=== PATIENT | female | born 1980 | race Caucasian/White ===

== ENCOUNTER 2021-05-04 09:33 | Emergency (ER) | payer OTHER, SELFPAY ==
--- NOTE | ~2021-05-04 | XR_ITS ---
EXAMINATION: XR CHEST CLINICAL INFORMATION: Chest pain. COMPARISON: None TECHNIQUE: Frontal view of the chest was obtained. FINDINGS: 2 ill-defined rounded opacities are seen in the right mid and lower lobe. The lungs are otherwise clear. The pleural spaces are clear. The heart and mediastinal structures are normal. No bony abnormality is seen. XR/XR chest 1V IMPRESSION: Ill-defined patchy opacities right lung, nonspecific. Early pneumonia is possible. Short-term interval follow-up is suggested to show resolution.
--- NOTE | ~2021-05-04 | CT_ITS ---
EXAMINATION: CT ANGIOGRAM OF THE CHEST WITH AND WITHOUT CONTRAST (CT PULMONARY ANGIOGRAM FOR PE) CLINICAL INFORMATION: Reason for Exam CHEST PAIN. pe? ELEVATED d-DIMER. COMPARISON: None TECHNIQUE: Prior to contrast administration, noncontrast localization images were obtained. Subsequently, multidetector volumetric imaging was performed from the thoracic inlet to below the diaphragms following the administration of 65 mL Omnipaque 350 intravenous contrast. No contrast reaction reported Sagittal, coronal, and MIP oblique sagittal reformatted images were obtained on the CT workstation, uploaded to PACS, and reviewed. This CT examination was performed using dose optimization techniques as appropriate, variously including the following: *Automated exposure control *Adjustment of mA and/or kV according to patient size (this includes techniques or standardized protocols for targeted exams where dose is matched to indication/reason for exam; i.e. extremities or head) *Use of iterative reconstruction technique Total exam dose-length product 486 mGy-cm FINDINGS: QUALITY OF STUDY/CONTRAST BOLUS: Satisfactory. PULMONARY ARTERIES: No central or segmental pulmonary emboli. THORACIC AORTA: No aneurysm or dissection. LUNG: There are bilateral rounded parenchymal consolidations showing a slight peripheral predominance. Low lung volumes. Mosaic attenuation within the lower lungs bilaterally likely relates to accompanying air trapping. PLEURA: No pleural effusion or pneumothorax. MEDIASTINUM: Normal heart size. No pericardial effusion. No hilar or mediastinal lymphadenopathy. No evidence of septal bowing or right heart strain. CHEST WALL/AXILLA: No axillary or internal mammary lymphadenopathy. OSSEOUS STRUCTURES: No acute or suspicious osseous abnormality. UPPER ABDOMEN: Hepatic steatosis suspected. Cholelithiasis. CT/CT angio chest PE protocol IMPRESSION: * No pulmonary embolism. * Multifocal bilateral rounded parenchymal consolidations. This is nonspecific but can be seen in association with COVID pneumonitis. * Hepatic steatosis. * Cholelithiasis. VTE: negative
[2021-05-04 09:41] VITALS: BP 134/79; PULSE 88; RESP 24; TEMP 36.6; O2SAT 100; BMI 43.4
--- NOTE | 2021-05-04 10:21 | ECG_ITS ---
Test Reason : DIFFICULTY BREATHING Blood Pressure : / mmHG Vent. Rate : 076 BPM Atrial Rate : 076 BPM P-R Int : 182 ms QRS Dur : 080 ms QT Int : 398 ms P-R-T Axes : 033 016 009 degrees QTc Int : 447 ms Normal sinus rhythm Normal ECG No previous ECGs available Referred By: Rubén Naik Electronically Signed By:DAVID CARRIZALES MD
[2021-05-04] MEDS: guaiFEN/Codeine SF 200/20/10ML 10 ML LIQUID PO (10:46)
--- NOTE | 2021-05-04 10:49 | PC.NURSE ---
pt post breakthrough case of covid ((=) on 04/23/21, (-) 05/01/21, presents with SOB, inability to take a deep breath. Pt SaO2 100% on RA,lungs without adventitious breath sounds. Denies OCPs. Consult with CATHLEEN Trotter, orders completed. Awaiting results and disposition.
--- NOTE | 2021-05-04 10:57 | ED_ITS ---
HPI - General Adult General Chief complaint: Upper Respiratory Symptoms Stated complaint: +covid 10 days ago, diff breathing Time Seen by Provider: 05/04/21 10:20 Source: patient Mode of arrival: ambulatory Limitations: no limitations History of Present Illness HPI narrative: 40-YEAR-OLD FEMALE HISTORY OF DIABETES AND TESTED POSITIVE FOR COVID ON April PRESENTS TO THE ED FOR CHEST PAIN, COUGHING, chills, b odyaches AND MILD PLEURISY for 4 days.. PATIENT TESTED COVID NEGATIVE ON MAY 01 BUT SYMPTOMS WORSENED. PATIENT DENIES ANY SWELLING OF LOWER EXTREMITIES, CALF PAIN, or COUGHING UP BLOOD. PATIENT DENIES ANY RECENT LONG TRAVEL OR ORAL CONTRACEPTIVES. PATIENT STATES NO HISTORY OF DVT. Related Data Previous Rx's Medication Instructions Recorded amoxicillin 875 mg-potassium 1 tab PO BID 10 Days #20 tab 05/04/21 clavulanate 125 mg tablet (Augmentin) azithromycin 250 mg tablet 250 mg PO DAILY 6 Days #6 tab 05/04/21 dexamethasone 6 mg tablet 6 mg PO DAILY 10 Days #10 tab 05/04/21 (Decadron) Allergies Allergy/AdvReac Type Severity Reaction Status Date / Time some adhesives Allergy Unknown rash Uncoded 03/13/19 00:00 Review of Systems Review of Systems: Yes all other systems are reviewed and are negative Constitutional: Constitutional: Reports as per HPI and Reports no additional constitutional complaints Eyes: Eyes: Reports as per HPI and Reports no additional eye complaints ENT: Reports system reviewed and no additional complaints, except as documented and Reports as per HPI Cardiovascular: Cardiovascular: Reports as per HPI, Reports no additional cardiovascular complaints, Reports chest pain and Reports dyspnea Respiratory: Respiratory: Reports as per HPI, Reports no additional respiratory complaints, Reports chest congestion, Reports cough, Reports pain with cough and Reports dyspnea Gastrointestinal: Gastrointestinal: Reports as per HPI and Reports no additional gastrointestinal complaints Genitourinary: Genitourinary: Reports no additional female genitourinary complaints and Reports as per HPI Musculoskeletal: Musculoskeletal: Reports no additional musculoskeletal compl aints and Reports as per HPI Neurologic: Reports system reviewed and no additional complaints, except as documented and Reports as per HPI Psychiatric: Psychiatric: Reports no additional psychiatric complaints and Re ports as per HPI [facility] Past Medical History Medical History (Updated 05/04/21 @ 16:34 by CATHLEEN Trotter) Asthma Diabetes Social History Social History Advance Directives: No Physical Exam Vital Signs: Vital Signs: Last Vital Signs Temp 98.1 F 05/04/21 16:51 Pulse 81 05/04/21 16:51 Resp 18 05/04/21 16:51 BP 118/73 05/04/21 16:51 Pulse Ox 96 05/04/21 16:51 Body Mass Index 43.4 Const: General: cooperative, healthy appearing, comfortable, no acute distress, well developed, alert, awake and Physically active Orientation/consciousness: patient oriented x3 HENMT: Head: Yes normal to inspection, Yes No palpable skull fracture present, Yes normocephalic, Yes atraumatic and No abrasion Eyes: General: appearance normal, both eyes and all related structures Neck: Neck: Yes normal visual inspection, Yes full ROM, Yes no ly mphadenopathy, Yes no meningeal signs, Yes trachea midline, Yes supple and No tender Chest: Chest palpation & inspection: normal inspection of the chest and normal palpation of entire chest wall Resp: Effort & Inspection: normal respiratory effort and able to speak in complete sentences Auscultation: clear to auscultation bilaterally Cardio: Jugular venous distension: no JVD Heart sounds: S1 normal heart sound present and S2 normal heart sound present GI: Inspection: Yes normal to inspection and No abdominal wall ecchymosis Palpation (GI): Soft to palpation, not firm, nontender, no guarding and not rigid : General: No CVA tenderness and Yes no CVA tenderness Back/Spine/Pelvis: Back: no CVA tenderness, No CVA tenderness and No back tenderness Skin: General skin exam: no rashes or lesions noted and elasticity normal Neuro: General: patient oriented x3, gait normal, no meningeal signs and CN's II-XI intact bilaterally Cranial nerves: Yes CN's II-XII intact bilaterally Extrem: Other: LOWER EXTREMITIES NEGATIVE FOR SWELLING, PITTING EDEMA, CALF TENDERNESS. Psych: Appearance: grossly normal, well kempt and not disheveled Course Course Course Narrative: MOST LIKELY VIRAL INFECTION SYMPTOMS. PATIENT'S CHEST WALL PAIN COSTOCHONDRITIS. WE WILL SEND D-DIMER, CHEST X-RAY AND LABS. Reevaluation(s) Reevaluation #1: EKG negative STEMI. Troponin negative. X-ray shows COVID pneumonia. D-dimer elevated was sent for chest CT and rule out PE. Time: 11:02 Reevaluation #2: Chest CT negative for PE. Chest CTA shows COVID pneumonia. Patient is not hypoxic does not need admission. Will discharge with cough medication, antibiotics, and Decadron. Time: 15:12 Medical Decision Making MDM Narrative Medical decision making narrative: COVID pneumonia Lab Data Result diagrams: 05/04/21 11:02 05/04/21 11:02 Labs: Lab Results 05/04/21 05/04/21 05/04/21 Range/Units 11:02 11:02 11:02 WBC 4.8 (4.8-10.8) X10*3/uL RBC 3.94 L (4.20-5.50) X10*6/uL Hgb 11.2 L (12.0-16.0) g/dl Hct 33.2 L (37.0-47.0) % MCV 84.3 (80.0-98.0) fL MCH 28.4 (27.0-33.0) pg MCHC 33.7 (31.0-35.0) g/dl RDW 12.8 (11.0-16.0) % Plt Count 329 (160-400) X10*3/uL MPV 9.6 (9.4-12.3) fL Immature Gran % (Auto) 1.0 H (0.0-0.4) % Neut % (Auto) 54.8 (45-73) % Lymph % (Auto) 32.7 (20-40) % [place] % (Auto) 7.3 (2-11) % Eos % (Auto) 3.8 (0-4) % Baso % (Auto) 0.4 (0-2) % Lymph # (Auto) 1.6 (1.2-4.9) X10*3/uL [place] # (Auto) 0.4 (0.1-1.2) X10*3/uL Eos # (Auto) 0.2 (0.0-0.4) X10*3/uL Baso # (Auto) 0.0 (0.0-0.2) X10*3/uL Abs Immat Gran (auto) 0.05 H (0.00-0.03) X10*3/uL Absolute Neuts (auto) 2.6 (2.0-8.3) x10*3/uL Absolute Nucleated RBC 0.000 (0.0-0.012) X10*3/uL Nucleated RBC % (auto) 0.0 (0.0-0.2) /100WBC PT (9.9-13.0) SEC INR (0.9-1.1) APTT (24.1-38.0) SEC D-Dimer High Sensitivty 484 NG/ML Sodium 139 (135-145) mmol/L Potassium 3.7 (3.3-5.1) mmol/L Chloride 107 (96-108) mmol/L Carbon Dioxide 23 (22-29) mmol/L Anion Gap 13 (12-20) BUN 11 (9-16) mg/dL Creatinine 0.69 (0.5-1.4) mg/dL Estim Creat Clear Calc 122.8 Estimated GFR > 60 Random Glucose 122 H (60-115) mg/dL Calcium 8.6 (8.4-10.2) mg/dL Total Bilirubin 0.3 (0.0-1.0) mg/dL AST 24 (5-31) U/L ALT 44 H (0-31) U/L Alkaline Phosphatase 50 (39-117) U/L Troponin I High Sens (<3.5-17.0) ng/L B-Natriuretic Peptide Total Protein 7.2 (6.5-8.0) g/dL Albumin 3.7 (3.5-5.0) g/dL Beta HCG, Quant < 2 mIU/mL 05/04/21 05/04/21 Range/Units 11:02 11:02 WBC (4.8-10.8) X10*3/uL RBC (4.20-5.50) X10*6/uL Hgb (12.0-16.0) g/dl Hct (37.0-47.0) % MCV (80.0-98.0) fL MCH (27.0-33.0) pg MCHC (31.0-35.0) g/dl RDW (11.0-16.0) % Plt Count (160-400) X10*3/uL MPV (9.4-12.3) fL Immature Gran % (Auto) (0.0-0.4) % Neut % (Auto) (45-73) % Lymph % (Auto) (20-40) % [place] % (Auto) (2-11) % Eos % (Auto) (0-4) % Baso % (Auto) (0-2) % Lymph # (Auto) (1.2-4.9) X10*3/uL [place] # (Auto) (0.1-1.2) X10*3/uL Eos # (Auto) (0.0-0.4) X10*3/uL Baso # (Auto) (0.0-0.2) X10*3/uL Abs Immat Gran (auto) (0.00-0.03) X10*3/uL Absolute Neuts (auto) (2.0-8.3) x10*3/uL Absolute Nucleated RBC (0.0-0.012) X10*3/uL Nucleated RBC % (auto) (0.0-0.2) /100WBC PT 11.1 (9.9-13.0) SEC INR 1.0 (0.9-1.1) APTT 31.9 (24.1-38.0) SEC D-Dimer High Sensitivty NG/ML Sodium (135-145) mmol/L Potassium (3.3-5.1) mmol/L Chloride (96-108) mmol/L Carbon Dioxide (22-29) mmol/L Anion Gap (12-20) BUN (9-16) mg/dL Creatinine (0.5-1.4) mg/dL Estim Creat Clear Calc Estimated GFR Random Glucose (60-115) mg/dL Calcium (8.4-10.2) mg/dL Total Bilirubin (0.0-1.0) mg/dL AST (5-31) U/L ALT (0-31) U/L Alkaline Phosphatase (39-117) U/L Troponin I High Sens < 3.5 (<3.5-17.0) ng/L B-Natriuretic Peptide Cancelled Total Protein (6.5-8.0) g/dL Albumin (3.5-5.0) g/dL Beta HCG, Quant mIU/mL ECG Data Interpretation: Vent rate 76, MS ineterval 182, QRS 80, QTC 447. negative stemi Discharge Plan Discharge Clinical Impression: Pneumonia due to 2019 novel coronavirus Patient Disposition: Home, Self-Care Instructions: COVID-19 (Coronavirus Disease 2019) (ED) Additional Instructions: Your CT scan shows COVID pneumonia. You will be discharged with antibiotics and steroids. Return to the ED for shortness of breath, coughing up blood, swelling of lower extremity, calf pain, weakness, dizziness, worsening chest pain, or any other concerning symptoms. Please follow-up with primary care provider. Prescriptions: New amoxicillin-pot clavulanate [Augmentin] 875-125 mg tablet 1 tab PO BID 10 Days Qty: 20 RF: 0 azithromycin 250 mg tablet 250 mg PO DAILY 6 Days Qty: 6 RF: 0 dexamethasone [Decadron] 6 mg tablet 6 mg PO DAILY 10 Days Qty: 10 RF: 0 Stand Alone Forms: Work/School Release Interventions: ED Discharge Assessment Last Done: 05/04/21 16:53 Discharge Date/Time: 05/04/21 16:54 Print Language: Nepali
[2021-05-04 11:07] LABS: MANUAL DIFF FLAG NO
[2021-05-04 11:12] LABS: Basophils Percent Auto 0.4 % (0-2); Eosinophils Absolute Auto 0.2 X10*3/uL (0.0-0.4); Eosinophils Percent Auto 3.8 % (0-4); Hematocrit 33.2 % (37.0-47.0); Hemoglobin 11.2 g/dl (12.0-16.0); Imm Gran Abs Auto 0.05 X10*3/uL (0.00-0.03); Lymphocytes Absolute Auto 1.6 X10*3/uL (1.2-4.9); Lymphocytes Percent Auto 32.7 % (20-40); Mean Corpuscular HGB Conc 33.7 g/dl (31.0-35.0); Mean Corpuscular Hemoglobin 28.4 pg (27.0-33.0); Mean Corpuscular Volume 84.3 fL (80.0-98.0); Mean Platelet Volume 9.6 fL (9.4-12.3); Monocytes Absolute Auto 0.4 X10*3/uL (0.1-1.2); Monocytes Percent Auto 7.3 % (2-11); Neutrophils Absolute Auto 2.6 x10*3/uL (2.0-8.3); Neutrophils Percent Auto 54.8 % (45-73); Platelet Count 329 X10*3/uL (160-400); Red Blood Count 3.94 X10*6/uL (4.20-5.50); Red Cell Distribution Width 12.8 % (11.0-16.0); White Blood Count 4.8 X10*3/uL (4.8-10.8)
[2021-05-04 11:18] LABS: Prothrombin Time 11.1 SEC (9.9-13.0)
[2021-05-04 11:20] LABS: D Dimer High Sensitivity 484 NG/ML
[2021-05-04 11:21] LABS: Partial Thromboplastin Time 31.9 SEC (24.1-38.0)
[2021-05-04 11:25] LABS: Alanine Aminotransferase 44 U/L (0-31); Albumin Level 3.7 g/dL (3.5-5.0); Alkaline Phosphatase 50 U/L (39-117); Anion Gap 13 (12-20); Aspartate Amino Transferase 24 U/L (5-31); Bilirubin Total 0.3 mg/dL (0.0-1.0); Blood Urea Nitrogen 11 mg/dL (9-16); Calcium 8.6 mg/dL (8.4-10.2); Carbon Dioxide 23 mmol/L (22-29); Chloride 107 mmol/L (96-108); Creatinine Clr Calc Pharmacy 122.8; Estimated Glomerular Filt Rate > 60; Glucose Random 122 mg/dL (60-115); Potassium 3.7 mmol/L (3.3-5.1); Sodium 139 mmol/L (135-145); Total Protein 7.2 g/dL (6.5-8.0)
[2021-05-04 11:31] LABS: Troponin-I High Sensitivity < 3.5 ng/L (<3.5-17.0)
[2021-05-04 12:09] LABS: HCG Quantitative < 2 mIU/mL
[2021-05-04] MEDS: iohexoL 350 MG/ML 100 ML INFUS..BTL 65 ML IV (14:15)
[2021-05-04 16:51] VITALS: BP 118/73; PULSE 81; RESP 18; TEMP 36.7; O2SAT 96
--- NOTE | 2021-05-04 16:53 | PC.NURSE ---
Pt alert and oriented x4, calm and cooperative. Pt denies pain. Pt denies SOB. Cough persists. Pt denies chest pain. Pt educated on dc and states an understanding. IV removed. Vitals stable, remains on room air. Pt ambulated to private car picked up by .
== END 2021-05-04 16:54 | disposition home or self-care (01) ==
PROVIDERS: Physician Assistant; Emergency Provider Emergency Medicine Emergency Medical Services; PCP Nurse Practitioner Family
DX: U07.1 COVID-19 (principal); R07.9 Chest pain, unspecified; Z79.899 Other long term (current) drug therapy
CPT/HCPCS: 36415; 71045; 71275; 80053; 84484; 84702; 85025; 85379; 85610; 85730; 93005; 99284; Q9967

== ENCOUNTER 2021-07-07 17:28 | Emergency (ER) | payer OTHER, SELFPAY ==
[2021-07-07 17:33] VITALS: BP 136/77; PULSE 94; RESP 18; TEMP 36.7; O2SAT 100; BMI 39.4
[2021-07-07 18:03] LABS: COVID-19 Test Negative (Negative)
--- NOTE | 2021-07-07 18:28 | PC.NURSE ---
evaled by provider. urine requested.
--- NOTE | 2021-07-07 18:30 | ED.GENADULT ---
HPI - General Adult General Chief complaint: General Medical Stated complaint: lower back pain, fever, tightness on chest Time Seen by Provider: 07/07/21 18:00 Source: patient Mode of arrival: ambulatory Limitations: no limitations History of Present Illness HPI narrative: 40-year-old female presents to ED for COVID like symptoms. Patient received COVID vaccines and booster. Patient states all were [employer] Patient states since yesterday having coughing, body aches, chills, fever, and low back pain. Patient states she works in the [employer] system. Patient states no one else at home is sick. Patient recently had COVID April 2021. Patient denies any shortness of breath or chest pain. Related Data Previous Rx's Medication Instructions Recorded amoxicillin 875 mg-potassium 1 tab PO BID 10 Days #20 tab 05/04/21 clavulanate 125 mg tablet (Augmentin) azithromycin 250 mg tablet 250 mg PO DAILY 6 Days #6 tab 05/04/21 dexamethasone 6 mg tablet 6 mg PO DAILY 10 Days #10 tab 05/04/21 (Decadron) cefpodoxime 100 mg tablet 100 mg PO Q12H 7 Days #14 tab 07/07/21 naproxen 500 mg tablet 500 mg PO BID PRN 10 Days #20 tab 07/07/21 Allergies Allergy/AdvReac Type Severity Reaction Status Date / Time some adhesives Allergy Unknown rash Uncoded 07/07/21 17:33 Review of Systems Review of Systems: Low back pain, coughing, fever, chills, fatigue. Yes all other systems are reviewed and are negative [facility] Past Medical History Medical History (Updated 07/07/21 @ 19:29 by CATHLEEN Trotter) Asthma Diabetes Social History Social History Advance Directives: No Advance Directives Information Provided: Yes Patient : No Physical Exam Vital Signs: Vital Signs: Last Vital Signs Temp 98.1 F 07/07/21 17:33 Pulse 94 07/07/21 17:33 Resp 18 07/07/21 17:33 BP 136/77 07/07/21 17:33 Pulse Ox 100 07/07/21 17:33 BMI result Body Mass Index 39.4 Const: General: cooperative, healthy appearing, comfortable, no acute distress, well developed, alert, awake and Physically active Orientation/consciousness: patient oriented x3 HENMT: Head: Yes normal to inspection, Yes No palpable skull fracture present, Yes normocephalic, Yes atraumatic and No abrasion Eyes: General: appearance normal, both eyes and all related structures Neck: Neck: Yes normal visual inspection, Yes full ROM, Yes no lymphadenopathy, Yes no meningeal signs, Yes trachea midline, Yes supple, No anterior neck swelling and No tender Chest: Chest palpation & inspection: normal inspection of the chest and normal palpation of entire chest wall Resp: Effort & Inspection: normal respiratory effort and able to speak in complete sentences Auscultation: clear to auscultation bilaterally Cardio: Jugular venous distension: no JVD Heart sounds: S1 normal heart sound present and S2 normal heart sound present GI: Inspection: Yes normal to inspection and No abdominal wall ecchymosis Palpation (GI): Soft to palpation, not firm, nontender, no guarding and not rigid : General: No CVA tenderness and Yes no CVA tenderness Back/Spine/Pelvis: Back: no CVA tenderness, No CVA tenderness and No back tenderness Skin: General skin exam: no rashes or lesions noted and elasticity normal Neuro: General: patient oriented x3, gait normal, no meningeal signs and CN's II-XI intact bilaterally Cranial nerves: Yes CN's II-XII intact bilaterally Extrem: General: Yes normal to inspection and Yes full ROM Psych: Appearance: grossly normal, well kempt and not disheveled Course Course Course Narrative: COVID test sent. Patient requesting her urine to be tested to check for yeast UTI due to history of UTI and low back pain. Reevaluation(s) Reevaluation #1: Patient's COVID swab negative. Patient's UA positive for UTI Time: 19:28 Medical Decision Making [facility] Narrative Medical decision making narrative: UTI Lab Data Labs: Lab Results 07/07/21 07/07/21 07/07/21 Range/Units 17:39 18:30 18:30 Urine Color YELLOW Urine Appearance CLEAR Urine pH 6.0 (5.0-8.0) Ur Specific [place] 1.010 (1.005-1.025) Urine Protein NEG (NEG-TRACE) MG/DL Urine Glucose (UA) >=1000 H (NEG) MG/DL Urine Ketones NEG (NEG) MG/DL Urine Blood NEG (NEG) Urine Nitrite POS H (NEG) Ur Leukocyte Esterase TRACE H (NEG) Urine RBC 1-4 (0) /HPF Urine WBC 5-9 H (0-4) /HPF Ur Squamous Epith Cells TRACE /LPF Urine Bacteria 3+ /LPF Urine Test NEGATIVE (NEGATIVE) COVID-19 ([facility]OS) Negative (Negative) COVID-19 Clin Com See Note Discharge Plan Discharge Clinical Impression: UTI (urinary tract infection) Patient Disposition: Home, Self-Care Instructions: Urinary Tract Infection in Women (ED) Additional Instructions: Your COVID swab came back negative. If you continue to have viral-like syndrome such as coughing, fever, and chills recommend retesting in 5 days. You may be false negative. The UA shows a UTI and will require oral antibiotics. Please follow-up with primary care provider. Return to the ED for any chest pain, shortness of breath, abdominal pain, flank pain, hematuria, dysuria, coughing up blood, leg swelling, calf pain, or any other concerning symptoms. Prescriptions: New cefpodoxime 100 mg tablet 100 mg PO Q12H 7 Days Qty: 14 RF: 0 naproxen 500 mg tablet 500 mg PO BID PRN (Reason: pain) 10 Days Qty: 20 RF: 0 No Action amoxicillin-pot clavulanate [Augmentin] 875-125 mg tablet 1 tab PO BID 10 Days Qty: 20 RF: 0 azithromycin 250 mg tablet 250 mg PO DAILY 6 Days Qty: 6 RF: 0 dexamethasone [Decadron] 6 mg tablet 6 mg PO DAILY 10 Days Qty: 10 RF: 0 Stand Alone Forms: Work/School Release Discharge Date/Time: 07/07/21 19:48 Print Language: [place]orese
[2021-07-07 18:52] LABS: Appearance Urine CLEAR; Color Urine YELLOW; Glucose Urine UA >=1000 MG/DL (NEG); Leukocyte Esterase Urine TRACE (NEG); Nitrite Urine POS (NEG); UACC Culture Trigger YES; Urine Blood NEG (NEG); Urine Ketones NEG (NEG); Urine Protein NEG (NEG-TRACE)
[2021-07-07 18:57] LABS: UPreg QC Valid YES; Urine Pregnancy NEGATIVE (NEGATIVE)
[2021-07-07 19:13] LABS: Bacteria Urine 3+ /LPF; Squamous Epithelial Cell Urine TRACE /LPF
== END 2021-07-07 19:48 | disposition home or self-care (01) ==
PROVIDERS: Physician Assistant; Emergency Provider Internal Medicine; PCP Nurse Practitioner Family
DX: N39.0 Urinary tract infection, site not specified (principal); Z20.822 Contact with and (suspected) exposure to COVID-19
CPT/HCPCS: 81001; 81025; 87086; 87088; 87186; 87635; 99283; 99284

== ENCOUNTER 2021-08-02 15:33 | Emergency (ER) | payer OTHER, SELFPAY ==
--- NOTE | ~2021-08-02 | XR_ITS ---
EXAMINATION: XR CHEST CLINICAL INFORMATION: Chest pain COMPARISON: 05/04/2021 TECHNIQUE: Frontal view of the chest was obtained. FINDINGS: At this time no significant abnormality is noted involving the heart, lungs, mediastinum, bony thorax or soft tissues. Previously seen ill-defined patchy infiltrates have cleared XR/XR chest 1V IMPRESSION: Clearing of previously seen ill-defined patchy infiltrates with now normal appearing exam.
--- NOTE | ~2021-08-02 | CT_ITS ---
EXAMINATION: CT abdomen pelvis wo con CLINICAL INFORMATION: Reason for Exam left flank pain dysuria COMPARISON: No prior CT available. TECHNIQUE: Multidetector volumetric imaging was performed from the superior aspect of the liver through the pubic symphysis a noncontrasted study. Sagittal and coronal reformatted images were obtained on the technologist's workstation. This CT examination was performed using dose optimization techniques as appropriate, variously including the following: *Automated exposure control *Adjustment of mA and/or kV according to patient size (this includes techniques or standardized protocols for targeted exams where dose is matched to indication/reason for exam; i.e. extremities or head) *Use of iterative reconstruction technique DLP: 886 mGy-cm FINDINGS: LOWER THORAX: Included lung bases are clear. HEPATOBILIARY: Diffusely hypodense liver suggesting hepatic steatosis. GALLBLADDER: There are large gallstones. SPLEEN: Spleen is normal in size. PANCREAS: No focal mass or ductal dilatation. STOMACH AND GASTROINTESTINAL TRACT: Stomach is grossly unremarkable. There is no bowel distention or thickening. No CT evidence of appendicitis. ADRENALS: No adrenal nodules. KIDNEYS/URETERS: No hydronephrosis, stones or solid mass lesions. URINARY BLADDER: Partially decompressed. PELVIC VISCERA: There is IUD in the uterus. PERITONEUM: No free air or fluid. LYMPH NODES: No lymphadenopathy. VASCULAR:Abdominal aorta normal in size, no aneurysm found. BONES, ABDOMINAL WALL AND SOFT TISSUES: Age-appropriate changes of the spine and skeletal system, no destructive osteolytic or osteosclerotic bone lesion found CT/CT abdomen pelvis wo con IMPRESSION: *No CT explanation for patient's left flank pain, no kidney stone or hydronephrosis. *Diffusely hypodense liver suggesting hepatic steatosis. *IUD in the uterus. *Multiple large gallstones cholelithiasis.
[2021-08-02 15:38] VITALS: BP 130/80; PULSE 112; RESP 24; TEMP 36.8; O2SAT 100; BMI 40.5
--- NOTE | 2021-08-02 15:41 | ECG_ITS ---
Test Reason : chest pain Blood Pressure : / mmHG Vent. Rate : 109 BPM Atrial Rate : 109 BPM P-R Int : 162 ms QRS Dur : 074 ms QT Int : 340 ms P-R-T Axes : 015 021 024 degrees QTc Int : 457 ms Sinus tachycardia Otherwise normal ECG When compared with ECG of 04-MAY-2021 10:52, No significant change was found Referred By: Generic ED Physician Electronically Signed By:RANDOLPH KIRKPATRICK MD
--- NOTE | 2021-08-02 16:48 | ED_ITS ---
HPI - General Adult General Chief complaint: Back Pain/Injury Stated complaint: chest pain,lower abd pain Time Seen by Provider: 08/02/21 16:45 Source: patient Mode of arrival: ambulatory Limitations: no limitations History of Present Illness HPI narrative: 41-year-old female past medical history significant for asthma and diabetes presenting to the emergency department with multiple complaints today. She tells me that she is having itching to her left eye, chest pain, shortness of breath, pain to her bladder and lower abdomen, left-sided flank pain, malaise, weakness times 2-3 weeks worsening. Patient tells me she thought it was going to go way so she has not seek medical attention over the past 2-3 weeks. She tells me that her chest pain is centralized substernal radiating to the left arm. She tells me is intermittent in nature and severe described as a stabbing pain. She also tells me that her left eye has been very itchy lately. And sometimes she feels like there is something in her eye. She also tells me that she is having lower abdominal pain and she thinks that her bladder. She reports that she was seen urine had a bladder infection in late June. She told me was severe. She denies nausea, vomiting. Onset (ago): week(s) (2) Radiation: extremity Severity: severe Quality: stabbing Relieving factors: none Exacerbating factors: none Associated symptoms: denies other symptoms Treatments prior to arrival: none Related Data Previous Rx's Medication Instructions Recorded amoxicillin 875 mg-potassium 1 tab PO BID 10 Days #20 tab 05/04/21 clavulanate 125 mg tablet (Augmentin) azithromycin 250 mg tablet 250 mg PO DAILY 6 Days #6 tab 05/04/21 dexamethasone 6 mg tablet 6 mg PO DAILY 10 Days #10 tab 05/04/21 (Decadron) cefpodoxime 100 mg tablet 100 mg PO Q12H 7 Days #14 tab 07/07/21 naproxen 500 mg tablet 500 mg PO BID PRN 10 Days #20 tab 07/07/21 nitrofurantoin 100 mg PO BID 7 Days #14 cap 07/15/21 monohydrate/macrocrystals 100 mg capsule (Macrobid) cefuroxime axetil 250 mg tablet 250 mg PO BID 7 Days #14 tab 08/02/21 Allergies Allergy/AdvReac Type Severity Reaction Status Date / Time some adhesives Allergy Unknown rash Uncoded 07/07/21 17:33 Review of Systems Review of Systems: Constitutional : No Weight loss, No Fever, No Chills, + Fatigue, + Malaise ENT/Mouth : No sore throat, No Rhinorrhea Eyes: No Eye Pain, No Swelling, No Redness Cardiovascular : + Chest Pain, No SOB, No Dyspnea on Exertion, No Orthopnea, No Edema, No Palpitations Respiratory : No Cough, No Sputum, No Wheezing Gastrointestinal : No Nausea, No Vomiting, No Diarrhea, No Constipation, + abdominal Pain, No Hematochezia, No Melena Genitourinary : No Dysuria, + Urinary Frequency, No Hematuria, Musculoskeletal : No joint pain, No Myalgias, No Joint Swelling Skin : No Skin Lesions, No rash Neuro : No Weakness, No Numbness, No Dizziness, No Headache Psych : No Anxiety/Panic, No Depression All other systems reviewed and are negative Yes all other systems are reviewed and are negative [facility] Past Medical History Attestation statement: The following information was validated with the patient. Source: old records reviewed and nursing notes reviewed Medical History (Updated 08/02/21 @ 19:16 by CATHLEEN Bradley) Asthma Diabetes Social History Social History Alcohol intake: never Use of substances other than those prescribed or required for medical reasons: No Advance Directives: No Advance Directives Information Provided: No Patient : No Physical Exam ED Vital Signs: Vital Signs - 24 hr 08/02/21 15:38 08/02/21 16:55 Temperature 98.2 F 98.2 F Pulse Rate 112 H 91 Respiratory Rate 24 H 16 Blood Pressure 130/80 116/70 Pulse Oximetry 100 99 BMI result Body Mass Index 40.5 VSS Appearance: Alert.? Oriented X3.? No acute distress.? Head: Normocephalic, atraumatic, no step-offs or deformities Eyes: Pupils equal, round and reactive to light.? ENT: Pharynx normal.? Neck: Normal inspection.? Neck supple.? CVS: Normal heart rate and rhythm.? Pulses normal.? Respiratory: No respiratory distress.? Breath sounds normal.? Abdomen: Soft and nontender.?Negative murphys, mcburneys, psoas, obtrurator Skin: Skin warm and dry.? Normal skin color.? Normal skin turgor.? Extremities: No lower extremity edema.? No calf ttp. 5/5 strength to bilateral upper and lower extremities Back: No midline tenderness, no C-spine tenderness, full range of motion, + left sided CVA discomfort. Neuro: Oriented X 3.? No motor deficit.? No sensory deficit. Normal [id number], [id number], normal tandem gait. Course Reevaluation(s) Reevaluation #1: CBC within normal limits. Troponin negative. HCG negative. No acute electrolyte abnormalities. Urine with positive nitrates, negative leukocyte esterase. Patient is having urinary frequency therefore I will treat for UTI. I do not suspect PE or ACS at this time. Chest x-ray normal. Pending abdominal CT. Time: 19:09 Reevaluation #2: CT of the abdomen and pelvis shows diffusely hypodense liver suggestive of hepatic steatosis, an IUD in the uterus, and multiple large gallstones/david lithiasis which I do not suspect are causing patient's pain as she is complaining mostly of left sided flank pain. She complains of abdominal pain however she is not tender upon my exam or upon my reevaluation. I have discussed these CT scan findings with patient I feel as though she should follow up with General surgery Outpatient, there is no signs of obstructing uropathy patient's labs are within normal limits, normal bilirubin. Patient is hemodynamically stable. No signs of infection at this time. This can be followed up with outpatient. Abdominal pain could be secondary to cystitis. Educated her on worrisome signs and symptoms advised her to follow-up with her PCP and return with new or worsening symptoms. Outlined these on her discharge. Comfortable with discharge home with PCP and general surgery follow-up. Patient reports significant improvement after toradol. She is feeling significantly better from when she arrived Time: 19:11 Medical Decision Making [facility] Narrative Medical decision making narrative: 1700 41 yo f presents with multiple complaints including chest pain, eye itching, abdominal pain, urinary frequency times 2-3 weeks progressively worsening. Review of systems is overwhelmingly positive. Physical examination within nontender abdomen, regular rate and rhythm, lungs clear. Positive CVA tenderness on the left. Patient appears extremely anxious. Plan at this time is to obtain basic labs and a CT of the abdomen and pelvis with no contrast to rule out kidney stones. Patient history and physical examination not consistent with PE or ACS however cardiac enzymes will be done, an EKG was done and was nonischemic. Medical Records Medical records reviewed: Yes I reviewed the patient's medical records. Lab Data Lab results reviewed: Yes I reviewed the patient's lab results. Result diagrams: 08/02/21 17:07 08/02/21 17:07 Labs: Lab Results 08/02/21 08/02/21 08/02/21 Range/Units 16:58 16:59 17:07 WBC 8.5 (4.8-10.8) X10*3/uL RBC 4.47 (4.20-5.50) X10*6/uL Hgb 12.8 (12.0-16.0) g/dl Hct 37.8 (37.0-47.0) % MCV 84.6 (80.0-98.0) fL MCH 28.6 (27.0-33.0) pg MCHC 33.9 (31.0-35.0) g/dl RDW 13.5 (11.0-16.0) % Plt Count 277 (160-400) X10*3/uL MPV 9.6 (9.4-12.3) fL Immature Gran % (Auto) 0.4 (0.0-0.4) % Neut % (Auto) 70.9 (45-73) % Lymph % (Auto) 19.8 L (20-40) % [place] % (Auto) 7.4 (2-11) % Eos % (Auto) 1.1 (0-4) % Baso % (Auto) 0.4 (0-2) % Lymph # (Auto) 1.7 (1.2-4.9) X10*3/uL [place] # (Auto) 0.6 (0.1-1.2) X10*3/uL Eos # (Auto) 0.1 (0.0-0.4) X10*3/uL Baso # (Auto) 0.0 (0.0-0.2) X10*3/uL Abs Immat Gran (auto) 0.03 (0.00-0.03) X10*3/uL Absolute Neuts (auto) 6.1 (2.0-8.3) x10*3/uL Absolute Nucleated RBC 0.000 (0.0-0.012) X10*3/uL Nucleated RBC % (auto) 0.0 (0.0-0.2) /100WBC Sodium (135-145) mmol/L Potassium (3.3-5.1) mmol/L Chloride (96-108) mmol/L Carbon Dioxide (22-29) mmol/L Anion Gap (12-20) BUN (9-16) mg/dL Creatinine (0.5-1.4) mg/dL Estim Creat Clear Calc Estimated GFR Random Glucose (60-115) mg/dL Calcium (8.4-10.2) mg/dL Magnesium (1.6-2.6) mg/dL Total Bilirubin (0.0-1.0) mg/dL AST (5-31) U/L ALT (0-31) U/L Alkaline Phosphatase (39-117) U/L Troponin I High Sens (<3.5-17.0) ng/L Total Protein (6.5-8.0) g/dL Albumin (3.5-5.0) g/dL Beta HCG, Quant mIU/mL Urine Color YELLOW Urine Appearance HAZY Urine pH 6.0 (5.0-8.0) Ur Specific [place] <= 1.005 (1.005-1.025) Urine Protein NEG (NEG-TRACE) MG/DL Urine Glucose (UA) >=1000 H (NEG) MG/DL Urine Ketones NEG (NEG) MG/DL Urine Blood TRACE (NEG) Urine Nitrite POS H (NEG) Ur Leukocyte Esterase NEG (NEG) Urine RBC 1-4 (0) /HPF Urine WBC 0-2 (0-4) /HPF Ur Squamous Epith Cells 2+ /LPF Urine Bacteria 1+ /LPF Urine Mucus 1+ /LPF COVID-19 (RAMOS) Negative (Negative) COVID-19 Clin Com See Note 08/02/21 08/02/21 Range/Units 17:07 17:07 WBC (4.8-10.8) X10*3/uL RBC (4.20-5.50) X10*6/uL Hgb (12.0-16.0) g/dl Hct (37.0-47.0) % MCV (80.0-98.0) fL MCH (27.0-33.0) pg MCHC (31.0-35.0) g/dl RDW (11.0-16.0) % Plt Count (160-400) X10*3/uL MPV (9.4-12.3) fL Immature Gran % (Auto) (0.0-0.4) % Neut % (Auto) (45-73) % Lymph % (Auto) (20-40) % [place] % (Auto) (2-11) % Eos % (Auto) (0-4) % Baso % (Auto) (0-2) % Lymph # (Auto) (1.2-4.9) X10*3/uL [place] # (Auto) (0.1-1.2) X10*3/uL Eos # (Auto) (0.0-0.4) X10*3/uL Baso # (Auto) (0.0-0.2) X10*3/uL Abs Immat Gran (auto) (0.00-0.03) X10*3/uL Absolute Neuts (auto) (2.0-8.3) x10*3/uL Absolute Nucleated RBC (0.0-0.012) X10*3/uL Nucleated RBC % (auto) (0.0-0.2) /100WBC Sodium 136 (135-145) mmol/L Potassium 3.8 (3.3-5.1) mmol/L Chloride 104 (96-108) mmol/L Carbon Dioxide 22 (22-29) mmol/L Anion Gap 14 (12-20) BUN 13 (9-16) mg/dL Creatinine 0.77 (0.5-1.4) mg/dL Estim Creat Clear Calc 117.0 Estimated GFR > 60 Random Glucose 215 H (60-115) mg/dL Calcium 8.9 (8.4-10.2) mg/dL Magnesium 1.9 (1.6-2.6) mg/dL Total Bilirubin 0.4 (0.0-1.0) mg/dL AST 12 D (5-31) U/L ALT 19 (0-31) U/L Alkaline Phosphatase 58 (39-117) U/L Troponin I High Sens < 3.5 (<3.5-17.0) ng/L Total Protein 7.7 (6.5-8.0) g/dL Albumin 3.9 (3.5-5.0) g/dL Beta HCG, Quant < 2 mIU/mL Urine Color Urine Appearance Urine pH (5.0-8.0) Ur Specific [place] (1.005-1.025) Urine Protein (NEG-TRACE) MG/DL Urine Glucose (UA) (NEG) MG/DL Urine Ketones (NEG) MG/DL Urine Blood (NEG) Urine Nitrite (NEG) Ur Leukocyte Esterase (NEG) Urine RBC (0) /HPF Urine WBC (0-4) /HPF Ur Squamous Epith Cells /LPF Urine Bacteria /LPF Urine Mucus /LPF COVID-19 (RAMOS) (Negative) COVID-19 Clin Com ECG Data Attestation: I personally reviewed and interpreted this ECG as follows: Prior ECG tracings: available for review Interpretation: EKG shows sinus tachycardia ventricular rate of 109, HI normal, QRS normal, QT/QTC normal. No ST elevations or inversions concerning for ischemia. When compared to EKG from April 2021 no significant changes. Critical Care Time Critical Care Time Critical Care Time: No Discharge Plan Discharge Clinical Impression: Chest pain not due to acute coronary syndrome, Abdominal pain, UTI (urinary tract infection), Hepatic steatosis, Cholelithiasis Patient Disposition: Home, Self-Care Additional Instructions: Take your medications as prescribed. If you were prescribed antibiotics today, it is important that you take your medication to their entirety, do not skip any doses, do not finish them early. Follow-up with your primary care provider this week. Please follow up with General surgery as you do have gallstones, however I do not suspect that they are causing your pain as your pain is not localized to the right upper quadrant. No signs of acute infection at this time I did treat for UTI since your technically symptomatic. Return to the emergency department with new or worsening symptoms. Such as chest pain, shortness of breath, fevers, chills, nausea, vomiting, headache, dizziness, lethargy, weakness. In case of emergency call [address]/CT abdomen pelvis wo con IMPRESSION: *No CT explanation for patient's left flank pain, no kidney stone or hydronephrosis. ? *Diffusely hypodense liver suggesting hepatic steatosis. ? *IUD in the uterus. ? *Multiple large gallstones cholelithiasis. Prescriptions: New cefuroxime axetil 250 mg tablet 250 mg PO BID 7 Days Qty: 14 0RF No Action amoxicillin-pot clavulanate [Augmentin] 875-125 mg tablet 1 tab PO BID 10 Days Qty: 20 0RF azithromycin 250 mg tablet 250 mg PO DAILY 6 Days Qty: 6 0RF Rx Instructions: start on day 2 of therapy dexamethasone [Decadron] 6 mg tablet 6 mg PO DAILY 10 Days Qty: 10 0RF cefpodoxime 100 mg tablet 100 mg PO Q12H 7 Days Qty: 14 0RF Rx Instructions: must administer with a meal/food naproxen 500 mg tablet 500 mg PO BID PRN (Reason: pain) 10 Days Qty: 20 0RF nitrofurantoin monohyd/m-cryst [Macrobid] 100 mg capsule 100 mg PO BID 7 Days Qty: 14 0RF Rx Instructions: must administer with a meal/food Referrals: Jen Childers NP [Primary Care Provider] - 2 days Stand Alone Forms: Work/School Release
[2021-08-02 16:55] VITALS: BP 116/70; PULSE 91; RESP 16; TEMP 36.8; O2SAT 99
[2021-08-02 17:11] LABS: MANUAL DIFF FLAG NO
[2021-08-02 17:14] LABS: Basophils Percent Auto 0.4 % (0-2); Eosinophils Absolute Auto 0.1 X10*3/uL (0.0-0.4); Eosinophils Percent Auto 1.1 % (0-4); Hematocrit 37.8 % (37.0-47.0); Hemoglobin 12.8 g/dl (12.0-16.0); Imm Gran Abs Auto 0.03 X10*3/uL (0.00-0.03); Imm Gran Pct Auto 0.4 % (0.0-0.4); Lymphocytes Absolute Auto 1.7 X10*3/uL (1.2-4.9); Lymphocytes Percent Auto 19.8 % (20-40); Mean Corpuscular HGB Conc 33.9 g/dl (31.0-35.0); Mean Corpuscular Hemoglobin 28.6 pg (27.0-33.0); Mean Corpuscular Volume 84.6 fL (80.0-98.0); Mean Platelet Volume 9.6 fL (9.4-12.3); Monocytes Absolute Auto 0.6 X10*3/uL (0.1-1.2); Monocytes Percent Auto 7.4 % (2-11); Neutrophils Absolute Auto 6.1 x10*3/uL (2.0-8.3); Neutrophils Percent Auto 70.9 % (45-73); Platelet Count 277 X10*3/uL (160-400); Red Blood Count 4.47 X10*6/uL (4.20-5.50); Red Cell Distribution Width 13.5 % (11.0-16.0); White Blood Count 8.5 X10*3/uL (4.8-10.8)
[2021-08-02 17:15] LABS: Appearance Urine HAZY; Color Urine YELLOW; Glucose Urine UA >=1000 MG/DL (NEG); Leukocyte Esterase Urine NEG (NEG); Nitrite Urine POS (NEG); Specific Gravity - Urine <= 1.005 (1.005-1.025); UACC Culture Trigger YES; Urine Blood TRACE (NEG); Urine Ketones NEG (NEG); Urine Protein NEG (NEG-TRACE)
[2021-08-02 17:25] LABS: Bacteria Urine 1+ /LPF; Mucus Urine 1+ /LPF; Squamous Epithelial Cell Urine 2+ /LPF; WBC Urine 0-2 /HPF (0-4)
[2021-08-02 17:31] LABS: COVID-19 Test Negative (Negative)
[2021-08-02 17:34] LABS: Troponin-I High Sensitivity < 3.5 ng/L (<3.5-17.0)
[2021-08-02 17:36] LABS: Alanine Aminotransferase 19 U/L (0-31); Albumin Level 3.9 g/dL (3.5-5.0); Alkaline Phosphatase 58 U/L (39-117); Anion Gap 14 (12-20); Aspartate Amino Transferase 12 U/L (5-31); Bilirubin Total 0.4 mg/dL (0.0-1.0); Blood Urea Nitrogen 13 mg/dL (9-16); Calcium 8.9 mg/dL (8.4-10.2); Carbon Dioxide 22 mmol/L (22-29); Chloride 104 mmol/L (96-108); Estimated Glomerular Filt Rate > 60; Glucose Random 215 mg/dL (60-115); Magnesium 1.9 mg/dL (1.6-2.6); Potassium 3.8 mmol/L (3.3-5.1); Sodium 136 mmol/L (135-145); Total Protein 7.7 g/dL (6.5-8.0)
[2021-08-02 17:43] LABS: HCG Quantitative < 2 mIU/mL
[2021-08-02 19:16] VITALS: BP 106/64; PULSE 104; RESP 20; TEMP 37.3; O2SAT 97
== END 2021-08-02 19:29 | disposition home or self-care (01) ==
PROVIDERS: Physician Assistant; Emergency Provider Internal Medicine; PCP Nurse Practitioner Family
DX: R07.89 Other chest pain (principal); N39.0 Urinary tract infection, site not specified; K80.20 Calculus of gallbladder without cholecystitis without obstruction; K76.0 Fatty (change of) liver, not elsewhere classified; R10.9 Unspecified abdominal pain; R00.0 Tachycardia, unspecified; Z20.822 Contact with and (suspected) exposure to COVID-19; E11.9 Type 2 diabetes mellitus without complications
CPT/HCPCS: 71045; 74176; 80053; 81001; 83735; 84484; 84702; 85025; 87086; 87088; 87186; 87635; 93005; 99284

== ENCOUNTER 2021-08-06 14:01 | Emergency (ER) | payer OTHER, SELFPAY ==
[2021-08-06 14:56] VITALS: BP 110/75; PULSE 90; RESP 18; TEMP 36.3; O2SAT 98; BMI 40.3
[2021-08-06 15:19] LABS: Appearance Urine HAZY; Color Urine YELLOW; Glucose Urine UA >=1000 MG/DL (NEG); Leukocyte Esterase Urine NEG (NEG); Nitrite Urine POS (NEG); UACC Culture Trigger YES; Urine Blood NEG (NEG); Urine Ketones NEG (NEG); Urine Protein NEG (NEG-TRACE)
[2021-08-06 15:21] LABS: UPreg QC Valid YES; Urine Pregnancy NEGATIVE (NEGATIVE)
[2021-08-06 15:25] LABS: Bacteria Urine 2+ /LPF; Mucus Urine 1+ /LPF; RBC Urine 0 /HPF (0); Squamous Epithelial Cell Urine 1+ /LPF
[2021-08-06 15:56] LABS: MANUAL DIFF FLAG NO
[2021-08-06 16:04] LABS: Basophils Percent Auto 0.4 % (0-2); Eosinophils Absolute Auto 0.2 X10*3/uL (0.0-0.4); Eosinophils Percent Auto 2.1 % (0-4); Hematocrit 37.9 % (37.0-47.0); Hemoglobin 12.8 g/dl (12.0-16.0); Imm Gran Abs Auto 0.02 X10*3/uL (0.00-0.03); Imm Gran Pct Auto 0.3 % (0.0-0.4); Lymphocytes Absolute Auto 2.3 X10*3/uL (1.2-4.9); Mean Corpuscular HGB Conc 33.8 g/dl (31.0-35.0); Mean Corpuscular Hemoglobin 28.6 pg (27.0-33.0); Mean Corpuscular Volume 84.8 fL (80.0-98.0); Mean Platelet Volume 9.4 fL (9.4-12.3); Monocytes Absolute Auto 0.4 X10*3/uL (0.1-1.2); Monocytes Percent Auto 4.9 % (2-11); Neutrophils Absolute Auto 4.7 x10*3/uL (2.0-8.3); Neutrophils Percent Auto 62.3 % (45-73); Platelet Count 330 X10*3/uL (160-400); Red Blood Count 4.47 X10*6/uL (4.20-5.50); Red Cell Distribution Width 13.8 % (11.0-16.0); White Blood Count 7.5 X10*3/uL (4.8-10.8)
[2021-08-06 16:09] LABS: Lactic Acid 0.9 mmol/L (0.5-2.0)
[2021-08-06 16:18] LABS: Alanine Aminotransferase 24 U/L (0-31); Albumin Level 4.2 g/dL (3.5-5.0); Alkaline Phosphatase 59 U/L (39-117); Anion Gap 14 (12-20); Aspartate Amino Transferase 13 U/L (5-31); Bilirubin Total 0.4 mg/dL (0.0-1.0); Blood Urea Nitrogen 13 mg/dL (9-16); Calcium 9.4 mg/dL (8.4-10.2); Carbon Dioxide 25 mmol/L (22-29); Chloride 105 mmol/L (96-108); Creatinine Clr Calc Pharmacy 119.9; Estimated Glomerular Filt Rate > 60; Glucose Random 143 mg/dL (60-115); Magnesium 1.9 mg/dL (1.6-2.6); Potassium 3.9 mmol/L (3.3-5.1); Sodium 140 mmol/L (135-145)
--- NOTE | 2021-08-06 17:35 | PC.NURSE ---
Pt received: Pt AOX4 and offers c/o pelvic pain with intermittent urinary freq. Pt states she was sent by a PA for IV ABT r/t known UTI. Heart sounds normal and lungs clear. Pt abd soft and non-tender.
--- NOTE | 2021-08-06 17:38 | ED.FEMALEGU ---
HPI - Female Genitourinary General Chief complaint: Urogenital-Female Stated complaint: needs IV antibiotics per PA Time Seen by Provider: 08/06/21 14:03 Source: patient Mode of arrival: ambulatory Limitations: no limitations History of Present Illness HPI Narrative: Patient diabetic on insulin pump been having lower abdominal pain for last 1 month was seen here on 07/07 UA showed UTI and treated with Cipro seen again on 08/02 at that time also urine was positive for nitrite but WBC count were 0-2. Patient urine culture showed ESBL E coli both times patient was called back to the ER patient had low-grade fever 3 days ago also had chills and blood sugars elevated 300 last night. No nausea no vomiting Related Data Previous Rx's Medication Instructions Recorded amoxicillin 875 mg-potassium 1 tab PO BID 10 Days #20 tab 05/04/21 clavulanate 125 mg tablet (Augmentin) azithromycin 250 mg tablet 250 mg PO DAILY 6 Days #6 tab 05/04/21 dexamethasone 6 mg tablet 6 mg PO DAILY 10 Days #10 tab 05/04/21 (Decadron) cefpodoxime 100 mg tablet 100 mg PO Q12H 7 Days #14 tab 07/07/21 naproxen 500 mg tablet 500 mg PO BID PRN 10 Days #20 tab 07/07/21 nitrofurantoin 100 mg PO BID 7 Days #14 cap 07/15/21 monohydrate/macrocrystals 100 mg capsule (Macrobid) cefuroxime axetil 250 mg tablet 250 mg PO BID 7 Days #14 tab 08/02/21 fosfomycin tromethamine 3 gram 1 packet PO Q OTHER DAY #1 ea 08/06/21 oral packet Allergies Allergy/AdvReac Type Severity Reaction Status Date / Time some adhesives Allergy Unknown rash Uncoded 08/06/21 14:56 Review of Systems Review of Systems: Yes all other systems are reviewed and are negative [facility] Past Medical History Medical History Asthma Diabetes Social History Social History Alcohol intake: never Advance Directives: No Advance Directives Information Provided: No Patient : No Physical Exam Vital Signs: Vital Signs: Last Vital Signs Temp 98.9 F 08/06/21 19:02 Pulse 89 08/06/21 19:02 Resp 16 08/06/21 19:02 BP 98/73 08/06/21 19:02 Pulse Ox 99 08/06/21 19:02 BMI result Body Mass Index 40.3 Appearance: Alert. Oriented X3. No acute distress. Eyes: no pallor ENT: Pharynx normal. Oral Mucosa moist Neck: Normal inspection. Neck supple. CVS: Normal heart rate and rhythm. Pulses normal. Respiratory: No respiratory distress. Equal air entry bilateral, no wheezing/rales/rhonchi Abdomen: Soft and nontender. Bowel sounds are present, no mass palpable, no cva tenderness Skin: Skin warm and dry. Normal skin color. Normal skin turgor. Extremities: No lower extremity edema. No calf tenderness Neuro: Oriented X 3. MDM - Female Genitourinary MDM Narrative Medical decision making narrative: Patient ES BL UTI otherwise his CBC negative mildly symptomatic was given 1 dose of meropenem in the ER case discussed with infectious disease Dr Valladares advised to give her Rx Fosfomycin in as outpatient treatment Lab Data Attestation: I reviewed the patient's lab results. Result diagrams: 08/06/21 15:51 08/06/21 15:51 Labs: Lab Results 08/06/21 08/06/21 08/06/21 Range/Units 15:13 15:13 15:51 WBC 7.5 (4.8-10.8) X10*3/uL RBC 4.47 (4.20-5.50) X10*6/uL Hgb 12.8 (12.0-16.0) g/dl Hct 37.9 (37.0-47.0) % MCV 84.8 (80.0-98.0) fL MCH 28.6 (27.0-33.0) pg MCHC 33.8 (31.0-35.0) g/dl RDW 13.8 (11.0-16.0) % Plt Count 330 (160-400) X10*3/uL MPV 9.4 (9.4-12.3) fL Immature Gran % (Auto) 0.3 (0.0-0.4) % Neut % (Auto) 62.3 (45-73) % Lymph % (Auto) 30.0 (20-40) % [place] % (Auto) 4.9 (2-11) % Eos % (Auto) 2.1 (0-4) % Baso % (Auto) 0.4 (0-2) % Lymph # (Auto) 2.3 (1.2-4.9) X10*3/uL [place] # (Auto) 0.4 (0.1-1.2) X10*3/uL Eos # (Auto) 0.2 (0.0-0.4) X10*3/uL Baso # (Auto) 0.0 (0.0-0.2) X10*3/uL Abs Immat Gran (auto) 0.02 (0.00-0.03) X10*3/uL Absolute Neuts (auto) 4.7 (2.0-8.3) x10*3/uL Absolute Nucleated RBC 0.000 (0.0-0.012) X10*3/uL Nucleated RBC % (auto) 0.0 (0.0-0.2) /100WBC Sodium (135-145) mmol/L Potassium (3.3-5.1) mmol/L Chloride (96-108) mmol/L Carbon Dioxide (22-29) mmol/L Anion Gap (12-20) BUN (9-16) mg/dL Creatinine (0.5-1.4) mg/dL Estim Creat Clear Calc Estimated GFR Random Glucose (60-115) mg/dL Lactic Acid (0.5-2.0) mmol/L Calcium (8.4-10.2) mg/dL Magnesium (1.6-2.6) mg/dL Total Bilirubin (0.0-1.0) mg/dL AST (5-31) U/L ALT (0-31) U/L Alkaline Phosphatase (39-117) U/L Total Protein (6.5-8.0) g/dL Albumin (3.5-5.0) g/dL Urine Color YELLOW Urine Appearance HAZY Urine pH 6.0 (5.0-8.0) Ur Specific [place] 1.010 (1.005-1.025) Urine Protein NEG (NEG-TRACE) MG/DL Urine Glucose (UA) >=1000 H (NEG) MG/DL Urine Ketones NEG (NEG) MG/DL Urine Blood NEG (NEG) Urine Nitrite POS H (NEG) Ur Leukocyte Esterase NEG (NEG) Urine RBC 0 (0) /HPF Urine WBC 15-29 H (0-4) /HPF Ur Squamous Epith Cells 1+ /LPF Urine Bacteria 2+ /LPF Urine Mucus 1+ /LPF Urine Test NEGATIVE (NEGATIVE) 08/06/21 08/06/21 Range/Units 15:51 15:51 WBC (4.8-10.8) X10*3/uL RBC (4.20-5.50) X10*6/uL Hgb (12.0-16.0) g/dl Hct (37.0-47.0) % MCV (80.0-98.0) fL MCH (27.0-33.0) pg MCHC (31.0-35.0) g/dl RDW (11.0-16.0) % Plt Count (160-400) X10*3/uL MPV (9.4-12.3) fL Immature Gran % (Auto) (0.0-0.4) % Neut % (Auto) (45-73) % Lymph % (Auto) (20-40) % [place] % (Auto) (2-11) % Eos % (Auto) (0-4) % Baso % (Auto) (0-2) % Lymph # (Auto) (1.2-4.9) X10*3/uL [place] # (Auto) (0.1-1.2) X10*3/uL Eos # (Auto) (0.0-0.4) X10*3/uL Baso # (Auto) (0.0-0.2) X10*3/uL Abs Immat Gran (auto) (0.00-0.03) X10*3/uL Absolute Neuts (auto) (2.0-8.3) x10*3/uL Absolute Nucleated RBC (0.0-0.012) X10*3/uL Nucleated RBC % (auto) (0.0-0.2) /100WBC Sodium 140 (135-145) mmol/L Potassium 3.9 (3.3-5.1) mmol/L Chloride 105 (96-108) mmol/L Carbon Dioxide 25 (22-29) mmol/L Anion Gap 14 (12-20) BUN 13 (9-16) mg/dL Creatinine 0.75 (0.5-1.4) mg/dL Estim Creat Clear Calc 119.9 Estimated GFR > 60 Random Glucose 143 H (60-115) mg/dL Lactic Acid 0.9 (0.5-2.0) mmol/L Calcium 9.4 (8.4-10.2) mg/dL Magnesium 1.9 (1.6-2.6) mg/dL Total Bilirubin 0.4 (0.0-1.0) mg/dL AST 13 (5-31) U/L ALT 24 (0-31) U/L Alkaline Phosphatase 59 (39-117) U/L Total Protein 8.0 (6.5-8.0) g/dL Albumin 4.2 (3.5-5.0) g/dL Urine Color Urine Appearance Urine pH (5.0-8.0) Ur Specific [place] (1.005-1.025) Urine Protein (NEG-TRACE) MG/DL Urine Glucose (UA) (NEG) MG/DL Urine Ketones (NEG) MG/DL Urine Blood (NEG) Urine Nitrite (NEG) Ur Leukocyte Esterase (NEG) Urine RBC (0) /HPF Urine WBC (0-4) /HPF Ur Squamous Epith Cells /LPF Urine Bacteria /LPF Urine Mucus /LPF Urine Test (NEGATIVE) Discharge Plan Discharge Clinical Impression: Urinary tract infection Patient Disposition: Home, Self-Care Instructions: Urinary Tract Infection in Women (ED) Additional Instructions: Drink plenty of fluids Take antibiotic as advised Report to the ER if high fever vomiting not feeling good Prescriptions: New fosfomycin tromethamine 3 gram packet 1 packet PO Q OTHER DAY Qty: 1 0RF No Action amoxicillin-pot clavulanate [Augmentin] 875-125 mg tablet 1 tab PO BID 10 Days Qty: 20 0RF azithromycin 250 mg tablet 250 mg PO DAILY 6 Days Qty: 6 0RF Rx Instructions: start on day 2 of therapy dexamethasone [Decadron] 6 mg tablet 6 mg PO DAILY 10 Days Qty: 10 0RF cefpodoxime 100 mg tablet 100 mg PO Q12H 7 Days Qty: 14 0RF Rx Instructions: must administer with a meal/food naproxen 500 mg tablet 500 mg PO BID PRN (Reason: pain) 10 Days Qty: 20 0RF nitrofurantoin monohyd/m-cryst [Macrobid] 100 mg capsule 100 mg PO BID 7 Days Qty: 14 0RF Rx Instructions: must administer with a meal/food cefuroxime axetil 250 mg tablet 250 mg PO BID 7 Days Qty: 14 0RF
[2021-08-06 19:02] VITALS: BP 98/73; PULSE 89; RESP 16; TEMP 37.2; O2SAT 99
--- NOTE | 2021-08-06 19:19 | PC.NURSE ---
Assumed care of pt at 1900. Pt resting and in NAD. Per previous RN, ordered antibiotic unavailable, pharmacy notified. Dispo pending
== END 2021-08-06 20:30 | disposition home or self-care (01) ==
PROVIDERS: Physician Assistant Medical; Emergency Provider Internal Medicine; PCP Nurse Practitioner Family
DX: N39.0 Urinary tract infection, site not specified (principal); R10.30 Lower abdominal pain, unspecified; E11.9 Type 2 diabetes mellitus without complications
CPT/HCPCS: 36415; 80053; 81001; 81025; 83605; 83735; 85025; 87040; 87086; 87088; 87186; 96365; 99283; 99284; J2185

== ENCOUNTER 2021-08-19 16:32 | Emergency (ER) | payer OTHER, SELFPAY ==
[2021-08-19 17:17] VITALS: BP 154/89; PULSE 89; RESP 18; TEMP 36.9; O2SAT 99; BMI 40.5
[2021-08-19 19:25] LABS: MANUAL DIFF FLAG NO
[2021-08-19 19:28] LABS: Basophils Percent Auto 0.5 % (0-2); Eosinophils Absolute Auto 0.2 X10*3/uL (0.0-0.4); Eosinophils Percent Auto 2.5 % (0-4); Hemoglobin 13.1 g/dl (12.0-16.0); Imm Gran Abs Auto 0.02 X10*3/uL (0.00-0.03); Imm Gran Pct Auto 0.2 % (0.0-0.4); Lymphocytes Absolute Auto 3.1 X10*3/uL (1.2-4.9); Lymphocytes Percent Auto 36.4 % (20-40); Mean Corpuscular HGB Conc 32.8 g/dl (31.0-35.0); Mean Corpuscular Hemoglobin 28.4 pg (27.0-33.0); Mean Corpuscular Volume 86.6 fL (80.0-98.0); Mean Platelet Volume 9.5 fL (9.4-12.3); Monocytes Absolute Auto 0.5 X10*3/uL (0.1-1.2); Monocytes Percent Auto 5.9 % (2-11); Neutrophils Absolute Auto 4.6 x10*3/uL (2.0-8.3); Neutrophils Percent Auto 54.5 % (45-73); Platelet Count 370 X10*3/uL (160-400); Red Blood Count 4.62 X10*6/uL (4.20-5.50); Red Cell Distribution Width 13.6 % (11.0-16.0); White Blood Count 8.5 X10*3/uL (4.8-10.8)
[2021-08-19 19:31] LABS: Appearance Urine CLEAR; Color Urine YELLOW; Glucose Urine UA >=1000 MG/DL (NEG); Leukocyte Esterase Urine NEG (NEG); Nitrite Urine NEG (NEG); UACC Culture Trigger NO; Urine Blood TRACE (NEG); Urine Ketones NEG (NEG); Urine Protein NEG (NEG-TRACE)
[2021-08-19 19:37] LABS: Bacteria Urine TRACE /LPF; Squamous Epithelial Cell Urine 2+ /LPF; WBC Urine 0-2 /HPF (0-4)
[2021-08-19 19:43] LABS: COVID-19 Test Negative (Negative); IDNOW Serial# 55D5AD1C
[2021-08-19 19:44] LABS: Anion Gap 10 (12-20); Blood Urea Nitrogen 12 mg/dL (9-16); Calcium 9.2 mg/dL (8.4-10.2); Carbon Dioxide 29 mmol/L (22-29); Chloride 104 mmol/L (96-108); Creatinine Clr Calc Pharmacy 107.4; Estimated Glomerular Filt Rate > 60; Glucose Random 156 mg/dL (60-115); Sodium 139 mmol/L (135-145)
--- NOTE | 2021-08-19 21:18 | ED.FEMALEGU ---
HPI - Female Genitourinary General Chief complaint: Urogenital-Female Stated complaint: +urine cult ..needs to be retested Time Seen by Provider: 08/19/21 16:36 Source: patient Mode of arrival: ambulatory Limitations: no limitations History of Present Illness HPI Narrative: Patient is a 41 year old female presenting to the emergency department today for a reevaluation of a UTI. Patient states that she was informed her urine culture from 08/11/2021 grew bacteria and that she needed to be reevaluated. Patient states that she is still having some pain with urination but she is already scheduled for a scope with her urologist. Patient denies any dizziness, lightheadedness, abdominal pain, nausea, vomiting, fever, chills, blurry vision, double vision, loss of vision, chest pain, difficulty breathing, shortness of breath, back pain, night sweats, increased urinary frequency, increased urinary urgency, blood in her urine or stool, syncope or a near syncopal episode, recent trauma or falls, bowel incontinence, bladder incontinence, bowel retention, bladder retention, or any other complaints at this time. Related Data Previous Rx's Medication Instructions Recorded amoxicillin 875 mg-potassium 1 tab PO BID 10 Days #20 tab 05/04/21 clavulanate 125 mg tablet (Augmentin) azithromycin 250 mg tablet 250 mg PO DAILY 6 Days #6 tab 05/04/21 dexamethasone 6 mg tablet 6 mg PO DAILY 10 Days #10 tab 05/04/21 (Decadron) cefpodoxime 100 mg tablet 100 mg PO Q12H 7 Days #14 tab 07/07/21 naproxen 500 mg tablet 500 mg PO BID PRN 10 Days #20 tab 07/07/21 nitrofurantoin 100 mg PO BID 7 Days #14 cap 07/15/21 monohydrate/macrocrystals 100 mg capsule (Macrobid) cefuroxime axetil 250 mg tablet 250 mg PO BID 7 Days #14 tab 08/02/21 fosfomycin tromethamine 3 gram 1 packet PO Q OTHER DAY #1 ea 08/06/21 oral packet Allergies Allergy/AdvReac Type Severity Reaction Status Date / Time some adhesives Allergy Unknown rash Uncoded 08/06/21 14:56 Review of Systems Constitutional: Constitutional: Reports no additional constitutional complaints, Denies chills, Denies fever(s) and Denies night sweats Eyes: Eyes: Reports no additional eye complaints, Denies blurry vision, Denies change in vision, Denies diplopia, Denies eye discharge, Denies loss of vision and Denies eye pain ENT: Denies dizziness Cardiovascular: Cardiovascular: Reports no additional cardiovascular complaints, Denies chest pain, Denies lightheadedness, Denies Loss of Consciousness and Denies dyspnea Respiratory: Respiratory: Reports no additional respiratory complaints and Denies dyspnea Gastrointestinal: Gastrointestinal: Reports no additional gastrointestinal complaints, Denies abdominal pain, Denies melena, Denies hematochezia, Denies change in bowel habits and Denies change in stool character Genitourinary: Genitourinary: Denies hematuria, Denies urinary frequency, Reports dysuria, Denies urinary incontinence, Denies urinary hesitancy and Denies urinary urgency Musculoskeletal: Musculoskeletal: Reports no additional musculoskeletal complaints, Denies numbness and Denies tingling Neurologic: Denies dizziness, Denies loss of vision, Denies numbness and Denies tingling Psychiatric: Psychiatric: Reports no additional psychiatric complaints Endocrine: Endocrine: Reports no additional endocrine complaints Hematologic/Lymphatic: Hematologic/Lymphatic: Reports no additional hematologic/lymphatic complaints Allergic/Immunologic: Allergic/Immunologic: Reports no additional allergic/immunologic complaints PMFSH Past Medical History Attestation statement: The following information was validated with the patient. Source: old records reviewed Medical History Asthma Diabetes Social History Social History Alcohol intake: never Advance Directives: No Advance Directives Information Provided: No Physical Exam Vital Signs: Vital Signs: Last Vital Signs Temp 98.4 F 08/19/21 17:17 Pulse 89 08/19/21 17:17 Resp 18 08/19/21 17:17 BP 154/89 H 08/19/21 17:17 Pulse Ox 99 08/19/21 17:17 BMI result Body Mass Index 40.5 Const: General: cooperative, no acute distress, alert and awake Nutritional Appearance: well nourished Orientation/consciousness: patient oriented x3 Limitations: no limitations HENMT: Head: Yes normal to inspection and Yes atraumatic Ears: hearing grossly normal bilaterally and external ears normal General nose exam: Normal external nose present, no nasal discharge noted and no epistaxis Face and sinus: Yes normal facial exam, No abrasion and No laceration Mouth: Normal oral and palatal mucosa present, no drooling and no muffled voice Eyes: General: appearance normal, both eyes and all related structures Periorbital: periorbital findings normal Eyelids: Yes eyelids normal Conjunctivae: conjunctivae normal Pupils: Equal, round and reactive pupils present EOM: EOMs intact bilaterally Neck: Neck: Yes normal visual inspection, Yes full ROM and Yes no lymphadenopathy Chest: Chest palpation & inspection: normal inspection of the chest Resp: Effort & Inspection: normal respiratory effort and able to speak in complete sentences Auscultation: clear to auscultation bilaterally Cardio: Rate: regular rate Rhythm: regular rhythm GI: Inspection: Yes normal to inspection Neuro: General: patient oriented x3 and moves all extremities Cranial nerves: Yes Equal, round and reactive pupils present Cognition (Neuro): normal cognition Motor exam (neuro): 5/5 motor strength present throughout Sensory Exam: Normal double simultaneous stimulation for sensation Coordination: [id number] test normal Extrem: General: Yes normal to inspection, Yes full ROM and Yes capillary refill normal Psych: Appearance: grossly normal Mental Status: mental status grossly normal Affect: normal affect Attitude: cooperative Thought process: Normal thought process present Thought content: Normal thought content present Insight: Good insight present (Psych) MDM - Female Genitourinary MDM Narrative Medical decision making narrative: Patient is a 41 year old female presenting to the emergency department today requesting a reevaluation for a UTI. Patient's physical exam was unremarkable. Patient's blood work was unremarkable. Patient's urine showed no acute process. I explained my physical exam findings as well as all test results to the patient. I answered all questions asked by the patient. I explained to the patient that she is not currently having any new symptoms consistent with a urinary tract infection and her work up today is negative for any acute infection. Patient agreed that the only symptom she is having, pain with urination, is the same as it is at her baseline. I stressed the importance of the patient taking her medication as prescribed. I stressed the importance of the patient following up with her primary care provider and her urologist. I stressed the importance of the patient returning to the emergency department immediately if her symptoms were to worsen or if she were to develop any dizziness, shortness of breath, difficulty breathing, chest pain, blurry vision, loss of vision, nausea, vomiting, abdominal pain, fever, chills, back pain, or any other complaints. Patient verbalized agreement and understanding with this treatment plan and discharge. Differential Diagnosis Differential diagnosis: Likely urinary tract infection and vaginitis Medical Records Attestation: I reviewed the patient's medical records. Lab Data Attestation: I reviewed the patient's lab results. Result diagrams: 08/19/21 19:20 08/19/21 19:20 Labs: Lab Results 08/19/21 08/19/21 08/19/21 Range/Units 19:20 19:20 19:20 WBC 8.5 (4.8-10.8) X10*3/uL RBC 4.62 (4.20-5.50) X10*6/uL Hgb 13.1 (12.0-16.0) g/dl Hct 40.0 (37.0-47.0) % MCV 86.6 (80.0-98.0) fL MCH 28.4 (27.0-33.0) pg MCHC 32.8 (31.0-35.0) g/dl RDW 13.6 (11.0-16.0) % Plt Count 370 (160-400) X10*3/uL MPV 9.5 (9.4-12.3) fL Immature Gran % (Auto) 0.2 (0.0-0.4) % Neut % (Auto) 54.5 (45-73) % Lymph % (Auto) 36.4 (20-40) % [place] % (Auto) 5.9 (2-11) % Eos % (Auto) 2.5 (0-4) % Baso % (Auto) 0.5 (0-2) % Lymph # (Auto) 3.1 (1.2-4.9) X10*3/uL [place] # (Auto) 0.5 (0.1-1.2) X10*3/uL Eos # (Auto) 0.2 (0.0-0.4) X10*3/uL Baso # (Auto) 0.0 (0.0-0.2) X10*3/uL Abs Immat Gran (auto) 0.02 (0.00-0.03) X10*3/uL Absolute Neuts (auto) 4.6 (2.0-8.3) x10*3/uL Absolute Nucleated RBC 0.000 (0.0-0.012) X10*3/uL Nucleated RBC % (auto) 0.0 (0.0-0.2) /100WBC Sodium 139 (135-145) mmol/L Potassium 4.0 (3.3-5.1) mmol/L Chloride 104 (96-108) mmol/L Carbon Dioxide 29 (22-29) mmol/L Anion Gap 10 L (12-20) BUN 12 (9-16) mg/dL Creatinine 0.84 (0.5-1.4) mg/dL Estim Creat Clear Calc 107.4 Estimated GFR > 60 Random Glucose 156 H (60-115) mg/dL Calcium 9.2 (8.4-10.2) mg/dL Urine Color Urine Appearance Urine pH (5.0-8.0) Ur Specific [place] (1.005-1.025) Urine Protein (NEG-TRACE) MG/DL Urine Glucose (UA) (NEG) MG/DL Urine Ketones (NEG) MG/DL Urine Blood (NEG) Urine Nitrite (NEG) Ur Leukocyte Esterase (NEG) Urine RBC (0) /HPF Urine WBC (0-4) /HPF Ur Squamous Epith Cells /LPF Urine Bacteria /LPF COVID-19 ([facility]) Negative (Negative) COVID-19 Clin Com See Note 08/19/21 Range/Units 19:20 WBC (4.8-10.8) X10*3/uL RBC (4.20-5.50) X10*6/uL Hgb (12.0-16.0) g/dl Hct (37.0-47.0) % MCV (80.0-98.0) fL MCH (27.0-33.0) pg MCHC (31.0-35.0) g/dl RDW (11.0-16.0) % Plt Count (160-400) X10*3/uL MPV (9.4-12.3) fL Immature Gran % (Auto) (0.0-0.4) % Neut % (Auto) (45-73) % Lymph % (Auto) (20-40) % [place] % (Auto) (2-11) % Eos % (Auto) (0-4) % Baso % (Auto) (0-2) % Lymph # (Auto) (1.2-4.9) X10*3/uL [place] # (Auto) (0.1-1.2) X10*3/uL Eos # (Auto) (0.0-0.4) X10*3/uL Baso # (Auto) (0.0-0.2) X10*3/uL Abs Immat Gran (auto) (0.00-0.03) X10*3/uL Absolute Neuts (auto) (2.0-8.3) x10*3/uL Absolute Nucleated RBC (0.0-0.012) X10*3/uL Nucleated RBC % (auto) (0.0-0.2) /100WBC Sodium (135-145) mmol/L Potassium (3.3-5.1) mmol/L Chloride (96-108) mmol/L Carbon Dioxide (22-29) mmol/L Anion Gap (12-20) BUN (9-16) mg/dL Creatinine (0.5-1.4) mg/dL Estim Creat Clear Calc Estimated GFR Random Glucose (60-115) mg/dL Calcium (8.4-10.2) mg/dL Urine Color YELLOW Urine Appearance CLEAR Urine pH 6.0 (5.0-8.0) Ur Specific [place] 1.010 (1.005-1.025) Urine Protein NEG (NEG-TRACE) MG/DL Urine Glucose (UA) >=1000 H (NEG) MG/DL Urine Ketones NEG (NEG) MG/DL Urine Blood TRACE (NEG) Urine Nitrite NEG (NEG) Ur Leukocyte Esterase NEG (NEG) Urine RBC 1-4 (0) /HPF Urine WBC 0-2 (0-4) /HPF Ur Squamous Epith Cells 2+ /LPF Urine Bacteria TRACE /LPF COVID-19 ([facility]) (Negative) COVID-19 Clin Com Discharge Plan Discharge Clinical Impression: Adult general medical exam Patient Disposition: Home, Self-Care Instructions: Normal Exam (ED) Additional Instructions: Follow up with your primary care provider. Return to the emergency department immediately if your symptoms worsen or if you develop any dizziness, shortness of breath, difficulty breathing, chest pain, blurry vision, loss of vision, nausea, vomiting, abdominal pain, fever, chills, back pain, or any other complaints. Prescriptions: No Action amoxicillin-pot clavulanate [Augmentin] 875-125 mg tablet 1 tab PO BID 10 Days Qty: 20 0RF azithromycin 250 mg tablet 250 mg PO DAILY 6 Days Qty: 6 0RF Rx Instructions: start on day 2 of therapy dexamethasone [Decadron] 6 mg tablet 6 mg PO DAILY 10 Days Qty: 10 0RF cefpodoxime 100 mg tablet 100 mg PO Q12H 7 Days Qty: 14 0RF Rx Instructions: must administer with a meal/food naproxen 500 mg tablet 500 mg PO BID PRN (Reason: pain) 10 Days Qty: 20 0RF nitrofurantoin monohyd/m-cryst [Macrobid] 100 mg capsule 100 mg PO BID 7 Days Qty: 14 0RF Rx Instructions: must administer with a meal/food fosfomycin tromethamine 3 gram packet 1 packet PO Q OTHER DAY Qty: 1 0RF cefuroxime axetil 250 mg tablet 250 mg PO BID 7 Days Qty: 14 0RF Interventions: ED Discharge Assessment Last Done: 08/19/21 21:59 Discharge Date/Time: 08/19/21 22:01 Print Language: Indonesian
== END 2021-08-19 22:01 | disposition home or self-care (01) ==
PROVIDERS: Physician Assistant Medical; Emergency Provider Internal Medicine; PCP Nurse Practitioner Family
DX: R30.9 Painful micturition, unspecified (principal); E11.9 Type 2 diabetes mellitus without complications; Z20.822 Contact with and (suspected) exposure to COVID-19
CPT/HCPCS: 36415; 80048; 81001; 85025; 87635; 99283

== ENCOUNTER 2021-09-13 22:21 | Inpatient (IN) | payer OTHER, SELFPAY ==
--- NOTE | ~2021-09-13 | XR_ITS ---
EXAMINATION: XR LUMBOSACRAL SPINE CLINICAL INFORMATION: Pain COMPARISON: None TECHNIQUE: Three views of the lumbosacral spine. FINDINGS: There is no fracture or subluxation. Vertebral body height and alignment maintained. Mild disc space narrowing of L4-L5. The posterior elements are well aligned. Sacroiliac joints are symmetric. Normal bowel gas pattern. XR/XR lumbar spine 2-3V IMPRESSION: Disc space narrowing of L4-L5.
--- NOTE | ~2021-09-13 | CT_ITS ---
EXAMINATION: CT ABDOMEN AND PELVIS WITH CONTRAST CLINICAL INFORMATION: Left flank pain. Question of pyelonephritis. COMPARISON: 08/02/2021 TECHNIQUE: Multidetector volumetric images were obtained from the superior aspect of the liver through the pubic symphysis following administration 85 mL of Omnipaque 350 intravenous contrast. Sagittal and coronal reformatted images were obtained on the technologist's workstation. Oral contrast: No This CT examination was performed using dose optimization techniques as appropriate, variously including the following: *Automated exposure control *Adjustment of mA and/or kV according to patient size (this includes techniques or standardized protocols for targeted exams where dose is matched to indication/reason for exam; i.e. extremities or head) *Use of iterative reconstruction technique DLP: 960 mGy-cm FINDINGS: LUNG BASES: The visualized lung bases are unremarkable. LIVER, GALLBLADDER, AND BILIARY TREE: The liver is normal in size, shape, and attenuation. No focal hepatic lesion or biliary ductal dilatation is present. Cholelithiasis. No pericholecystic fluid or inflammation. PANCREAS: Unremarkable. SPLEEN: Unremarkable. ADRENAL GLANDS: Unremarkable. KIDNEYS AND URETERS: The kidneys are normal in size, shape, and attenuation. Subcentimeter cyst in the upper pole of left kidney is benign and requires no further follow-up. No hydronephrosis, hydroureter, or calculi seen. No perinephric stranding. BLADDER: Unremarkable. GASTROINTESTINAL TRACT: No intestinal obstruction or inflammation. There is stable fluid-filled prominence of the appendiceal tip measuring up to 1.0 cm without dilatation proximally. No periappendiceal inflammatory changes. ABDOMINAL WALL: No significant hernia is appreciated. LYMPH NODES: Normal. VASCULAR: Unremarkable. PELVIC VISCERA: IUD present within the uterus. Ovaries unremarkable. OSSEOUS STRUCTURES: Unremarkable. CT/CT abdomen pelvis w con IMPRESSION: * No urinary calculi or hydronephrosis. * No etiology for the patient's left flank pain is identified. * Cholelithiasis without CT imaging evidence of cholecystitis. Fleischner guidelines were followed.
[2021-09-13 22:42] VITALS: BP 133/86; PULSE 102; RESP 15; TEMP 36.4; O2SAT 98; BMI 40.3
[2021-09-13 23:56] LABS: Basophils Percent Auto 0.5 % (0-2); Eosinophils Absolute Auto 0.2 X10*3/uL (0.0-0.4); Eosinophils Percent Auto 2.2 % (0-4); Hematocrit 36.2 % (37.0-47.0); Hemoglobin 12.2 g/dl (12.0-16.0); Imm Gran Abs Auto 0.02 X10*3/uL (0.00-0.03); Imm Gran Pct Auto 0.2 % (0.0-0.4); Lymphocytes Absolute Auto 2.3 X10*3/uL (1.2-4.9); Lymphocytes Percent Auto 27.8 % (20-40); MANUAL DIFF FLAG NO; Mean Corpuscular HGB Conc 33.7 g/dl (31.0-35.0); Mean Corpuscular Hemoglobin 28.4 pg (27.0-33.0); Mean Corpuscular Volume 84.4 fL (80.0-98.0); Mean Platelet Volume 9.4 fL (9.4-12.3); Monocytes Absolute Auto 0.5 X10*3/uL (0.1-1.2); Monocytes Percent Auto 6.5 % (2-11); Neutrophils Absolute Auto 5.1 x10*3/uL (2.0-8.3); Neutrophils Percent Auto 62.8 % (45-73); Platelet Count 381 X10*3/uL (160-400); Red Blood Count 4.29 X10*6/uL (4.20-5.50); Red Cell Distribution Width 13.3 % (11.0-16.0); White Blood Count 8.1 X10*3/uL (4.8-10.8)
[2021-09-13 23:57] LABS: Appearance Urine CLEAR; Color Urine STRAW; Glucose Urine UA >=1000 MG/DL (NEG); Leukocyte Esterase Urine NEG (NEG); Nitrite Urine POS (NEG); PH 5.5 (5.0-8.0); Specific Gravity - Urine <= 1.005 (1.005-1.025); UACC Culture Trigger YES; Urine Blood 3+ (NEG); Urine Ketones NEG (NEG); Urine Protein NEG (NEG-TRACE)
[2021-09-14 00:04] LABS: Bacteria Urine 3+ /LPF; Squamous Epithelial Cell Urine 2+ /LPF
[2021-09-14 00:20] LABS: Lactic Acid 1.8 mmol/L (0.5-2.0)
[2021-09-14 00:26] LABS: Alanine Aminotransferase 26 U/L (0-31); Albumin Level 4.1 g/dL (3.5-5.0); Alkaline Phosphatase 56 U/L (39-117); Anion Gap 14 (12-20); Aspartate Amino Transferase 13 U/L (5-31); Bilirubin Total 0.3 mg/dL (0.0-1.0); Blood Urea Nitrogen 16 mg/dL (9-16); Calcium 9.5 mg/dL (8.4-10.2); Carbon Dioxide 23 mmol/L (22-29); Chloride 105 mmol/L (96-108); Creatinine Clr Calc Pharmacy 112.4; Estimated Glomerular Filt Rate > 60; Glucose Random 233 mg/dL (60-115); Potassium 3.7 mmol/L (3.3-5.1); Sodium 138 mmol/L (135-145); Total Protein 7.8 g/dL (6.5-8.0)
[2021-09-14] MEDS: Ketorolac Tromethamine 15 MG/ML VIAL IVPUSH (04:07)
[2021-09-14] MEDS: ondansetron HCL 4 MG/2 ML VIAL IVPUSH (04:07)
--- NOTE | 2021-09-14 04:30 | ED_ITS ---
HPI - Female Genitourinary General Chief complaint: Urogenital-Female Stated complaint: UTI, antibiotics aren't working, is getting worse Time Seen by Provider: 09/13/21 22:55 Source: patient Mode of arrival: ambulatory History of Present Illness HPI Narrative: 41-year-old female with history of diabetes presents with persistent and inter mittent fevers as well as nausea and significant pain at the left flank radiating into the left groin area and down into her leg as well as back pain and persistent ?bladder pain?. Patient states that she could not take the pain anymore and decided come into the emergency room for re-evaluation. Related Data Previous Rx's Medication Instructions Recorded amoxicillin 875 mg-potassium 1 tab PO BID 10 Days #20 tab 05/04/21 clavulanate 125 mg tablet (Augmentin) azithromycin 250 mg tablet 250 mg PO DAILY 6 Days #6 tab 05/04/21 dexamethasone 6 mg tablet 6 mg PO DAILY 10 Days #10 tab 05/04/21 (Decadron) cefpodoxime 100 mg tablet 100 mg PO Q12H 7 Days #14 tab 07/07/21 naproxen 500 mg tablet 500 mg PO BID PRN 10 Days #20 tab 07/07/21 nitrofurantoin 100 mg PO BID 7 Days #14 cap 07/15/21 monohydrate/macrocrystals 100 mg capsule (Macrobid) cefuroxime axetil 250 mg tablet 250 mg PO BID 7 Days #14 tab 08/02/21 fosfomycin tromethamine 3 gram 1 packet PO Q OTHER DAY #1 ea 08/06/21 oral packet Allergies Allergy/AdvReac Type Severity Reaction Status Date / Time some adhesives Allergy Unknown rash Uncoded 08/06/21 14:56 Review of Systems Review of Systems: Pertinent positives and negatives as stated in HPI 10 point review of systems is otherwise negative. [facility] Past Medical History Source: nursing notes reviewed Medical History Asthma Diabetes Social History Social History Alcohol intake: never Advance Directives: No Advance Directives Information Provided: No Patient : No Physical Exam Vital Signs: Vital Signs: Last Vital Signs Temp 97.5 F 09/13/21 22:42 Pulse 102 H 09/13/21 22:42 Resp 15 09/13/21 22:42 BP 133/86 09/13/21 22:42 Pulse Ox 98 09/13/21 22:42 BMI result Body Mass Index 40.3 VITAL SIGNS: Reviewed. GENERAL: Well developed, well nourished, in no acute distress. HEAD: Normocephalic/atraumatic EYES: PERRLA, EOMI EARS: Ext canals without abnormality OROPHARYNX: no oral lesions noted, posterior pharynx clear LUNGS: Normal breath sounds. No adventitious sounds or accessory muscle use. SpO2<98> CARDIOVASCULAR: Regular rate and rhythm without noted murmurs ABDOMEN: Soft, suprapubic discomfort without rebound, non-distended with bowel sounds, left-sided CVA tenderness SKIN: Inspection of the skin reveals no rashes NEUROLOGIC: Alert and oriented x 4. Strength and sensation to light touch were grossly intact x 4. Course Course Course Narrative: 0435: 41-year-old female with history and clinical presentation consistent with suspected sequela of ESBL E coli UTI. At the end of July patient was noted to have ESBL E coli infection which was resistant to all of the regimens that she had been placed on at that time. She did return to the emergency room after being informed of this information and was discharged home on fosfomycin which according to literature has been shown to be effective in ESBL producing E coli strains. However patient comes in again with urinary symptoms and left flank pain with CVA tenderness, tachycardia as well as nausea and chills raising suspicion for possible complications associated with her UTI. Review of all investigations demonstrates continued urinary tract infection with suspected pyelonephritis as well as sepsis. Patient to receive initial dose of ertapenem as outlined in sensitivities. I discussed this case with the [facility] hospitalist who accepts admission. MDM - Female Genitourinary Lab Data Result diagrams: 09/13/21 23:50 09/13/21 23:50 Labs: Lab Results 09/13/21 09/13/21 09/13/21 Range/Units 23:45 23:50 23:50 WBC 8.1 (4.8-10.8) X10*3/uL RBC 4.29 (4.20-5.50) X10*6/uL Hgb 12.2 (12.0-16.0) g/dl Hct 36.2 L (37.0-47.0) % MCV 84.4 (80.0-98.0) fL MCH 28.4 (27.0-33.0) pg MCHC 33.7 (31.0-35.0) g/dl RDW 13.3 (11.0-16.0) % Plt Count 381 (160-400) X10*3/uL MPV 9.4 (9.4-12.3) fL Immature Gran % (Auto) 0.2 (0.0-0.4) % Neut % (Auto) 62.8 (45-73) % Lymph % (Auto) 27.8 (20-40) % [place] % (Auto) 6.5 (2-11) % Eos % (Auto) 2.2 (0-4) % Baso % (Auto) 0.5 (0-2) % Lymph # (Auto) 2.3 (1.2-4.9) X10*3/uL [place] # (Auto) 0.5 (0.1-1.2) X10*3/uL Eos # (Auto) 0.2 (0.0-0.4) X10*3/uL Baso # (Auto) 0.0 (0.0-0.2) X10*3/uL Abs Immat Gran (auto) 0.02 (0.00-0.03) X10*3/uL Absolute Neuts (auto) 5.1 (2.0-8.3) x10*3/uL Absolute Nucleated RBC 0.000 (0.0-0.012) X10*3/uL Nucleated RBC % (auto) 0.0 (0.0-0.2) /100WBC Sodium 138 (135-145) mmol/L Potassium 3.7 (3.3-5.1) mmol/L Chloride 105 (96-108) mmol/L Carbon Dioxide 23 (22-29) mmol/L Anion Gap 14 (12-20) BUN 16 (9-16) mg/dL Creatinine 0.80 (0.5-1.4) mg/dL Estim Creat Clear Calc 112.4 Estimated GFR > 60 Random Glucose 233 H (60-115) mg/dL Lactic Acid (0.5-2.0) mmol/L Calcium 9.5 (8.4-10.2) mg/dL Total Bilirubin 0.3 (0.0-1.0) mg/dL AST 13 (5-31) U/L ALT 26 (0-31) U/L Alkaline Phosphatase 56 (39-117) U/L Total Protein 7.8 (6.5-8.0) g/dL Albumin 4.1 (3.5-5.0) g/dL Urine Color STRAW Urine Appearance CLEAR Urine pH 5.5 (5.0-8.0) Ur Specific [place] <= 1.005 (1.005-1.025) Urine Protein NEG (NEG-TRACE) MG/DL Urine Glucose (UA) >=1000 H (NEG) MG/DL Urine Ketones NEG (NEG) MG/DL Urine Blood 3+ H (NEG) Urine Nitrite POS H (NEG) Ur Leukocyte Esterase NEG (NEG) Urine RBC 1-4 (0) /HPF Urine WBC 10-14 H (0-4) /HPF Ur Squamous Epith Cells 2+ /LPF Urine Bacteria 3+ /LPF COVID-19 ([facility]) (Negative) COVID-19 Clin Com 09/13/21 09/14/21 Range/Units 23:50 04:09 WBC (4.8-10.8) X10*3/uL RBC (4.20-5.50) X10*6/uL Hgb (12.0-16.0) g/dl Hct (37.0-47.0) % MCV (80.0-98.0) fL MCH (27.0-33.0) pg MCHC (31.0-35.0) g/dl RDW (11.0-16.0) % Plt Count (160-400) X10*3/uL MPV (9.4-12.3) fL Immature Gran % (Auto) (0.0-0.4) % Neut % (Auto) (45-73) % Lymph % (Auto) (20-40) % [place] % (Auto) (2-11) % Eos % (Auto) (0-4) % Baso % (Auto) (0-2) % Lymph # (Auto) (1.2-4.9) X10*3/uL [place] # (Auto) (0.1-1.2) X10*3/uL Eos # (Auto) (0.0-0.4) X10*3/uL Baso # (Auto) (0.0-0.2) X10*3/uL Abs Immat Gran (auto) (0.00-0.03) X10*3/uL Absolute Neuts (auto) (2.0-8.3) x10*3/uL Absolute Nucleated RBC (0.0-0.012) X10*3/uL Nucleated RBC % (auto) (0.0-0.2) /100WBC Sodium (135-145) mmol/L Potassium (3.3-5.1) mmol/L Chloride (96-108) mmol/L Carbon Dioxide (22-29) mmol/L Anion Gap (12-20) BUN (9-16) mg/dL Creatinine (0.5-1.4) mg/dL Estim Creat Clear Calc Estimated GFR Random Glucose (60-115) mg/dL Lactic Acid 1.8 (0.5-2.0) mmol/L Calcium (8.4-10.2) mg/dL Total Bilirubin (0.0-1.0) mg/dL AST (5-31) U/L ALT (0-31) U/L Alkaline Phosphatase (39-117) U/L Total Protein (6.5-8.0) g/dL Albumin (3.5-5.0) g/dL Urine Color Urine Appearance Urine pH (5.0-8.0) Ur Specific [place] (1.005-1.025) Urine Protein (NEG-TRACE) MG/DL Urine Glucose (UA) (NEG) MG/DL Urine Ketones (NEG) MG/DL Urine Blood (NEG) Urine Nitrite (NEG) Ur Leukocyte Esterase (NEG) Urine RBC (0) /HPF Urine WBC (0-4) /HPF Ur Squamous Epith Cells /LPF Urine Bacteria /LPF COVID-19 ([facility]) Negative (Negative) COVID-19 Clin Com See Note Discharge Plan Discharge Clinical Impression: Sepsis, Infection due to ESBL-producing Escherichia coli, Diabetes Patient Disposition: Admitted As Inpatient Prescriptions: No Action amoxicillin-pot clavulanate [Augmentin] 875-125 mg tablet 1 tab PO BID 10 Days Qty: 20 0RF azithromycin 250 mg tablet 250 mg PO DAILY 6 Days Qty: 6 0RF Rx Instructions: start on day 2 of therapy dexamethasone [Decadron] 6 mg tablet 6 mg PO DAILY 10 Days Qty: 10 0RF cefpodoxime 100 mg tablet 100 mg PO Q12H 7 Days Qty: 14 0RF Rx Instructions: must administer with a meal/food naproxen 500 mg tablet 500 mg PO BID PRN (Reason: pain) 10 Days Qty: 20 0RF nitrofurantoin monohyd/m-cryst [Macrobid] 100 mg capsule 100 mg PO BID 7 Days Qty: 14 0RF Rx Instructions: must administer with a meal/food fosfomycin tromethamine 3 gram packet 1 packet PO Q OTHER DAY Qty: 1 0RF cefuroxime axetil 250 mg tablet 250 mg PO BID 7 Days Qty: 14 0RF
[2021-09-14 04:32] LABS: COVID-19 Test Negative (Negative); IDNOW Serial# 16C4AD1C
[2021-09-14] MEDS: iohexoL 350 MG/ML 100 ML INFUS..BTL 85 ML IV (05:23)
[2021-09-14 06:41] VITALS: BP 93/51; PULSE 86; RESP 15; O2SAT 97
[2021-09-14 07:21] VITALS: BP 103/62; PULSE 84; RESP 14; O2SAT 96
[2021-09-14] MEDS: Ertapenem Sodium 1 GM in 0.9 % Sodium Chloride 50 ML IV (07:21)
--- NOTE | 2021-09-14 10:25 | PHA.MEDREC ---
med rec complete, no issues Pharmacy Consult ? Medication Reconciliation Pharmacy has completed the medication reconciliation.
[2021-09-14 14:00] VITALS: BP 107/68; PULSE 86; RESP 18; O2SAT 94
[2021-09-14 15:04] VITALS: BP 114/66; PULSE 80; RESP 16; O2SAT 97
--- NOTE | 2021-09-14 16:03 | P.HPHOSP_ITS ---
History of Present Illness Date of Service: 09/14/21 <Evelyn Osorio NP - Last Filed: 09/14/21 16:15> Chief Complaint: abdominal and back pain <Evelyn Osorio NP - Last Filed: 09/14/21 16:15> 41 year old women presenting with flank pain and LLQ abdominal pain that has worsened over the last several days. She has hx of diabetes and asthma. She denied fevers, chills, nausea, dysuria, vomiting or diarrhea. She has a hx of Ecoli ESBL pos UTI. She was not noted to have fever or leukocytosis. All other l abs within acceptable limits. she was given a dose of ertapenem in the ER. She is hemodynamically stable she will be admitted further management and treatment of UTI, possible ESBL positive <Evelyn Osorio NP - Last Filed: 09/14/21 16:15> Review of Systems Review of Systems: Denies any recent fever chills or decrease in appetite respiratory denies any shortness of breath coverage production cardiovascular denies chest pain gastrointestinal denies any dysphagia abdominal pain nausea vomiting or diarrhea genitourinary denies any dysuria frequency or hematuria musculoskeletal flank pain neuropsych denies any weakness or seizures all other systems reviewed are negative <Evelyn Osorio NP - Last Filed: 09/14/21 16:15> [facility] Medical History: Medical History Asthma Diabetes <Evelyn Osorio NP - Last Filed: 09/14/21 16:15> Social History: Social History Household Members: Spouse and Children Housing: House Do you presently have visiting nurse or other home services: No Alcohol intake: never Patient Tobacco Use Status: Never used Tobacco service: No Current occupational status: employed <Evelyn Osorio NP - Last Filed: 09/14/21 16:15> Meds Allergies/Adverse reactions: Allergies Allergy/AdvReac Type Severity Reaction Status Date / Time some adhesives Allergy Unknown rash Uncoded 08/06/21 14:56 <Evelyn Osorio NP - Last Filed: 09/14/21 16:15> Active Medications: Current Medications Acetaminophen (Acetaminophen 325 Mg Tablet) 650 mg PO Q6H PRN PRN Reason: Pain, Mild (Pain Scale 1-3) Aspirin (Aspirin Enteric Coated 81 Mg Tablet.Dr) 81 mg PO DAILY [facility] Enoxaparin Sodium (Enoxaparin Sodium 40 Mg/0.4 Ml Syringe) 40 mg SUBCUT Q24H [facility] Meropenem 1 gm/ Sodium (Chloride) 100 mls @ 200 mls/hr IV Q8H [facility] Insulin Glargine (Insulin Glargine,Hum.Rec.Anlog 100 Unit/Ml 10 Ml Vial) 30 unit SUBCUT DAILY [facility] Lisinopril (Lisinopril 2.5 Mg Tablet) 2.5 mg PO DAILY [facility]; Protocol Non-Formulary Medication (Dapagliflozin [Farxiga]) 10 mg PO DAILY [facility] Non-Formulary Medication (Dulaglutide [Trulicity]) 3 mg SUBCUT MO@1000 [facility] Ondansetron HCl (Ondansetron Hcl 4 Mg/2 Ml Vial) 4 mg IVPUSH Q8H PRN PRN Reason: Nausea and Vomiting Pharmacy Consult (Consult Rx Perform Med Rec) 1 each MISCELLANE ONCE PRN PRN Reason: Consult order Sodium Chloride (0.9 % Sodium Chloride Flush 3 Ml Syringe) 3 ml IVFLUSH QSHIFT [facility] <Evelyn Osorio NP - Last Filed: 09/14/21 16:15> Home medications: Home Medications Medication Instructions Recorded Confirmed Last Taken Type aspirin 81 mg tablet,delayed 81 mg PO DAILY 09/14/21 09/14/21 09/13/21 History release dapagliflozin 10 mg tablet 10 mg PO DAILY 09/14/21 09/14/21 09/13/21 History (Farxiga) dulaglutide 3 mg/0.5 mL 3 mg SUBCUT MO@1000 09/14/21 09/14/21 09/08/21 History subcutaneous pen injector (Trulicity) insulin glargine 100 unit/mL 30 unit SUBCUT DAILY 09/14/21 09/14/21 Unknown History subcutaneous solution (Lantus U-100 Insulin) insulin lispro 100 unit/mL See Rx Instructions .ROUTE .COMPLEX 09/14/21 09/14/21 Unknown History subcutaneous cartridge (Humalog U-100 Insulin) lisinopril 2.5 mg tablet 2.5 mg PO DAILY 09/14/21 09/14/21 09/13/21 History metformin 500 mg tablet,extended 1,000 mg PO DAILY 09/14/21 09/14/21 09/13/21 History release 24 hr <Evelyn Osorio NP - Last Filed: 09/14/21 16:15> Physical Exam Vital Signs and Narrative: Vital Signs: Last Vital Signs Temp 97.5 F 09/13/21 22:42 Pulse 80 09/14/21 15:04 Resp 16 09/14/21 15:04 BP 114/66 09/14/21 15:04 Pulse Ox 97 09/14/21 15:04 BMI result Body Mass Index 40.3 <Evelyn Osorio NP - Last Filed: 09/14/21 16:15> Appearing in no acute distress head is normocephalic atraumatic eyes pupils are PERRLA sclera is anicteric mouth throat mucous membranes are intact and moist neck is supple no lymphadenopathy, no JVD noted lung sounds are clear to auscultation heart regular rate rhythm, clear S1, S2 positive bowel sounds, abdomen is soft, nontender neuro patient is alert x3, no focal deficits <Evelyn Osorio NP - Last Filed: 09/14/21 16:15> Results Labs CBC and Chem 7: : 09/15/21 05:17 09/15/21 05:17 <Evelyn Osorio NP - Last Filed: 09/14/21 16:15> Labs: Laboratory Results - last 24 hr 09/13/21 09/13/21 09/13/21 23:45 23:50 23:50 MCV 84.4 MCH 28.4 MCHC 33.7 RDW 13.3 Plt Count 381 MPV 9.4 Immature Gran % (Auto) 0.2 Neut % (Auto) 62.8 Lymph % (Auto) 27.8 [place] % (Auto) 6.5 Eos % (Auto) 2.2 Baso % (Auto) 0.5 Lymph # (Auto) 2.3 [place] # (Auto) 0.5 Eos # (Auto) 0.2 Baso # (Auto) 0.0 Abs Immat Gran (auto) 0.02 Absolute Neuts (auto) 5.1 Absolute Nucleated RBC 0.000 Nucleated RBC % (auto) 0.0 Anion Gap 14 Estim Creat Clear Calc 112.4 Estimated GFR > 60 Random Glucose 233 H Lactic Acid Calcium 9.5 Total Bilirubin 0.3 AST 13 ALT 26 Alkaline Phosphatase 56 Total Protein 7.8 Albumin 4.1 Urine Color STRAW Urine Appearance CLEAR Urine pH 5.5 Ur Specific [place] <= 1.005 Urine Protein NEG Urine Glucose (UA) >=1000 H Urine Ketones NEG Urine Blood 3+ H Urine Nitrite POS H Ur Leukocyte Esterase NEG Urine RBC 1-4 Urine WBC 10-14 H Ur Squamous Epith Cells 2+ Urine Bacteria 3+ COVID-19 ([facility]) COVID-19 Clin Com 09/13/21 09/14/21 23:50 04:09 MCV MCH MCHC RDW Plt Count MPV Immature Gran % (Auto) Neut % (Auto) Lymph % (Auto) Kane % (Auto) Eos % (Auto) Baso % (Auto) Lymph # (Auto) Kane # (Auto) Eos # (Auto) Baso # (Auto) Abs Immat Gran (auto) Absolute Neuts (auto) Absolute Nucleated RBC Nucleated RBC % (auto) Anion Gap Estim Creat Clear Calc Estimated GFR Random Glucose Lactic Acid 1.8 Calcium Total Bilirubin AST ALT Alkaline Phosphatase Total Protein Albumin Urine Color Urine Appearance Urine pH Ur Specific [place] Urine Protein Urine Glucose (UA) Urine Ketones Urine Blood Urine Nitrite Ur Leukocyte Esterase Urine RBC Urine WBC Ur Squamous Epith Cells Urine Bacteria COVID-19 ([facility]) Negative COVID-19 Clin Com See Note <Evelyn Osorio NP - Last Filed: 09/14/21 16:15> Imaging Radiologist's Impressions: Impressions Abdomen/Pelvis CT 09/14/21 05:20 IMPRESSION: * No urinary calculi or hydronephrosis. * No etiology for the patient's left flank pain is identified. * Cholelithiasis without CT imaging evidence of cholecystitis. Fleischner guidelines were followed. <Evelyn Osorio NP - Last Filed: 09/14/21 16:15> Assessment and Plan (1) Infection due to ESBL-producing Escherichia coli: Status: Deleted <Evelyn Osorio NP - Last Filed: 09/14/21 16:15> Plan 41 year old women admitted with UTI and symptoms of pyelonephritis UTI. Hx of ESBL pos UTI Meropenem ID consult Follow final cx Diabetes May keep on pump if she is more comfortable with that otherwise can add sliding scale continue metformin DVT prophylaxis with Lovenox Attending Dr. Sotelo Full code <Evelyn Osorio NP - Last Filed: 09/14/21 16:15> 41 year old women admitted with UTI and symptoms of pyelonephritis UTI. Hx of ESBL pos UTI Meropenem ID consult Follow final cx Diabetes May keep on pump if she is more comfortable with that otherwise can add sliding scale continue metformin DVT prophylaxis with Lovenox Attending Dr. Sotelo Full code admission to span at least 2 midnights for treatment of resistant E. coli with IV Abx <Uvaldo Sotelo MD - Last Filed: 11/06/21 14:36> Quality Stroke Does the patient have a stroke diagnosis?: No <Evelyn Osorio NP - Last Filed: 09/14/21 16:15> VTE Prior VTE?: No <Evelyn Osorio NP - Last Filed: 09/14/21 16:15> VTE Risk Level:: Medical - moderate - high <Evelyn Osorio NP - Last Filed: 09/14/21 16:15> VTE Device Contraindication: Treatment Not Indicated <Evelyn Osorio NP - Last Filed: 09/14/21 16:15> VTE Drug Contraindication: N/A - Med Ordered <Evelyn Osorio NP - Last Filed: 09/14/21 16:15>
[2021-09-14] MEDS: Enoxaparin Sodium 40 MG/0.4 ML SYRINGE SUBCUT (16:21)
[2021-09-14] MEDS: 0.9 % Sodium Chloride Flush 3 ML SYRINGE IVFLUSH (16:22)
[2021-09-14] MEDS: Subcutaneous Insulin Pump 1 EACH SUBCUT ×2 (17:41→23:53)
[2021-09-14] MEDS: Nitrofurantoin Monohyd/M-Cryst 100 MG CAPSULE PO (21:42)
[2021-09-14 23:55] VITALS: BP 106/59; PULSE 78; RESP 18; TEMP 37.1; O2SAT 97
[2021-09-15] MEDS: Acetaminophen 325 MG TABLET 650 MG PO (00:29)
[2021-09-15 04:00] VITALS: BP 112/72; PULSE 81; RESP 16; TEMP 36.6; O2SAT 98
[2021-09-15 05:44] LABS: MANUAL DIFF FLAG NO
[2021-09-15 05:47] LABS: Basophils Percent Auto 0.6 % (0-2); Eosinophils Absolute Auto 0.2 X10*3/uL (0.0-0.4); Eosinophils Percent Auto 4.1 % (0-4); Hematocrit 35.8 % (37.0-47.0); Hemoglobin 12.1 g/dl (12.0-16.0); Imm Gran Abs Auto 0.02 X10*3/uL (0.00-0.03); Imm Gran Pct Auto 0.4 % (0.0-0.4); Lymphocytes Absolute Auto 2.1 X10*3/uL (1.2-4.9); Lymphocytes Percent Auto 39.3 % (20-40); Mean Corpuscular HGB Conc 33.8 g/dl (31.0-35.0); Mean Corpuscular Hemoglobin 28.4 pg (27.0-33.0); Mean Platelet Volume 9.6 fL (9.4-12.3); Monocytes Absolute Auto 0.5 X10*3/uL (0.1-1.2); Neutrophils Absolute Auto 2.5 x10*3/uL (2.0-8.3); Neutrophils Percent Auto 46.6 % (45-73); Platelet Count 351 X10*3/uL (160-400); Red Blood Count 4.26 X10*6/uL (4.20-5.50); Red Cell Distribution Width 13.2 % (11.0-16.0); White Blood Count 5.3 X10*3/uL (4.8-10.8)
[2021-09-15 06:07] LABS: Anion Gap 10 (12-20); Blood Urea Nitrogen 13 mg/dL (9-16); Calcium 8.8 mg/dL (8.4-10.2); Carbon Dioxide 26 mmol/L (22-29); Chloride 104 mmol/L (96-108); Creatinine Clr Calc Pharmacy 124.9; Estimated Glomerular Filt Rate > 60; Glucose Random 172 mg/dL (60-115); Potassium 4.1 mmol/L (3.3-5.1); Sodium 136 mmol/L (135-145)
[2021-09-15 07:25] VITALS: BP 111/61; PULSE 75; RESP 18; TEMP 36.6; O2SAT 96
[2021-09-15] MEDS: Empagliflozin 10 MG TABLET PO (08:13)
[2021-09-15] MEDS: Aspirin Enteric Coated 81 MG TABLET.DR PO (08:13)
[2021-09-15] MEDS: lisinopriL 2.5 MG TABLET PO (08:13)
[2021-09-15] MEDS: Insulin Glargine,Hum.rec.anlog 100 UNIT/ML 10 ML VIAL 30 UNIT SUBCUT (08:17)
[2021-09-15] MEDS: 0.9 % Sodium Chloride Flush 3 ML SYRINGE IVFLUSH (08:18)
--- NOTE | 2021-09-15 09:25 | MHC.CM.PN ---
Addendum entered by Nikki Dahl 09/15/21 14:38: PT WILL DC HOME TODAY WITH NO SERVICES FAMILY TO TRANSPORT Original Note: PT REPORTS SHE LIVES WITH HER S/O AND CHILDREN PT IS FULLY INDEPENDENT, WORKS AND DRIVES PT DENIES USE OF HOME SERVICES AND HAS AN INSULIN PUMP ONLY FOR DME PT CONFIRMS HER PCP IS SHEMAR CLEMENS PT COMPLETED A HCP TODAY NAMING HER S/O, TONY HER PRIMARY AGENT PT REPORTS BEING BOTH VACCINATED AGAINST COVID-19 AND RECEIVING THE BOOSTER CURRENT DC PLAN IS HOME WITH NO SERVICES PT WILL ARRANGE TRANSPORTATION
--- NOTE | 2021-09-15 11:09 | MHC.CLN ---
NUTRITION DIET CHANGED TO DIABETIC 2000 KCAL DUE TO DX DM AND TAKES DM MEDS.
[2021-09-15 11:23] VITALS: BP 135/87; PULSE 91; RESP 20; TEMP 36.4; O2SAT 96
[2021-09-15] MEDS: Subcutaneous Insulin Pump 1 EACH SUBCUT (11:52)
--- NOTE | 2021-09-15 14:47 | PM.DS ---
DS: Providers Provider Date of Service: 09/15/21 Date of admission: 09/14/21 15:55 Primary care physician: CORDELL Boyle Consults: 09/14/21 06:22 Consult to Infectious Diseases Routine Consulting Provider: Mary Valladares Reason for consultation: ESBL e. coli 09/14/21 15:58 Consult to Infectious Diseases Routine Consulting Provider: Mary Valladares Reason for consultation: hx esbl uti Has provider been notified: No Attending physician on discharge: Marquis Resendiz Discharging clinician: Evelyn Osorio DS: Diagnosis Discharge Diagnosis (1) Infection due to ESBL-producing Escherichia coli: Status: Acute DS: Summary Hospital Course Hospital Course: 41 year old women presenting with flank pain and LLQ abdominal pain that has worsened over the last several days. She has hx of diabetes and asthma. She denied fevers, chills, nausea, dysuria, vomiting or diarrhea. She has a hx of Ecoli ESBL pos UTI. She was not noted to have fever or leukocytosis. All other labs within acceptable limits. she was given a dose of ertapenem in the ER.? She is hemodynamically stable she will be admitted further management and treatment of UTI, possible ESBL positive UTI. Hx of ESBL pos UTI . Treated with meropenem initially. Urine cultures resulted as mixed therefore will send home with a few more days of Ceftin, no meropenem required at this time. Right flank pain radiating to back. Patient has a history of injury several years ago with injury to the lumbar spine. Lumbar spine x-ray today showed disc narrowing of L4-L5 with no fracture or subluxation. She was given lidocaine patches, she can take Tylenol as needed and follow up with her primary care provider who may refer her for physical therapy as an outpatient. Diabetes. Main stable with insulin pump and metformin during hospitalization. Continue normal regimen at home. Time Spent with Patient Time attestation: Total time spent providing and/or coordinating discharge services: Discharge coordination time: Greater than 30 minutes Quality: Safe Use of Opioids Does Pt have an Active Cancer Diagnosis on the Problem List?: No Quality: Stroke Does the patient have a stroke diagnosis?: No Physical Exam Vital Signs: Vital Signs: Last Vital Signs Temp 97.6 F 09/15/21 11:23 Pulse 91 09/15/21 11:23 Resp 20 09/15/21 11:23 BP 135/87 09/15/21 11:23 Pulse Ox 96 09/15/21 11:23 BMI result Body Mass Index 40.3 Appearing in no acute distress head is normocephalic atraumatic eyes pupils are PERRLA sclera is anicteric mouth throat mucous membranes are intact and moist neck is supple no lymphadenopathy, no JVD noted lung sounds are clear to auscultation heart regular rate rhythm, clear S1, S2 positive bowel sounds, abdomen is soft, nontender neuro patient is alert x3, no focal deficits DS: Data Data Completed and Pending Labs on day of discharge: Laboratory Results - last 24 hr 09/15/21 09/15/21 05:17 05:17 WBC 5.3 RBC 4.26 Hgb 12.1 Hct 35.8 L MCV 84.0 MCH 28.4 MCHC 33.8 RDW 13.2 Plt Count 351 MPV 9.6 Immature Gran % (Auto) 0.4 Neut % (Auto) 46.6 Lymph % (Auto) 39.3 [place] % (Auto) 9.0 Eos % (Auto) 4.1 H Baso % (Auto) 0.6 Lymph # (Auto) 2.1 [place] # (Auto) 0.5 Eos # (Auto) 0.2 Baso # (Auto) 0.0 Abs Immat Gran (auto) 0.02 Absolute Neuts (auto) 2.5 Absolute Nucleated RBC 0.000 Nucleated RBC % (auto) 0.0 Sodium 136 Potassium 4.1 Chloride 104 Carbon Dioxide 26 Anion Gap 10 L BUN 13 Creatinine 0.72 Estim Creat Clear Calc 124.9 Estimated GFR > 60 Random Glucose 172 H Calcium 8.8 D Preliminary micro results at discharge 09/13/21 23:54 Blood Culture - Preliminary Blood - Venous No growth after 24 hours. 09/13/21 23:50 Blood Culture - Preliminary Blood - Venous No growth after 24 hours. Discharge Plan Discharge Anticipated Discharge Date/Time: 09/15/21 12:04 Patient Disposition: Home, Self-Care Discharge Diagnosis: UTI Chronic Back pain Referrals: Pallavi Childers, [facility] [Primary Care Provider] - 1 Week Discharge Medications: New cefuroxime axetil 250 mg tablet 250 mg PO BID Qty: 8 0RF lidocaine [Lidocaine Pain Relief] 4 % Adhesive Patch,Medicated 1 patch transdermal DAILY Qty: 10 0RF Protocol: Apply to: Apply to: back Continued aspirin 81 mg Tablet,Delayed Release (Dr/Ec) 81 mg PO DAILY 0RF lisinopril 2.5 mg Tablet 2.5 mg PO DAILY 0RF Trulicity 3 mg/0.5 mL Pen Injector 3 mg SUBCUT MO@1000 0RF Lantus U-100 Insulin 100 unit/mL Solution 30 unit SUBCUT DAILY 0RF Farxiga 10 mg Tablet 10 mg PO DAILY 0RF metformin 500 mg Tablet Extended Release 24 Hr 1,000 mg PO DAILY 0RF Humalog U-100 Insulin 100 unit/mL Cartridge See Rx Instructions .ROUTE .COMPLEX 0RF Rx Instructions: up to 100 units via insulin pump daily Discontinued nitrofurantoin monohyd/m-cryst [Macrobid] 100 mg capsule 100 mg PO BID 7 Days Qty: 14 0RF Label Comments: started on 09/10/21 patient has had about 3 days Rx Instructions: must administer with a meal/food Discharge Orders: Discharge Order (Routine); Ordered 09/15/21 Ordered By: Evelyn Osorio Diet: advance to usual diet Activity on Discharge: As tolerated Stand Alone Forms: Patient Portal Discharge page Care Plan Goals: Complete resolution of symptoms Health Concerns: UTI Back pain Plan of Treatment: Follow-up with primary care provider as needed Follow up with physical therapy as an outpatient for chronic back pain Assessment: See discharge summary
--- NOTE | 2021-09-15 15:34 | P.CNID_ITS ---
History of Present Illness Data of Consult Service Date: 09/15/21 Requesting physician: Evelyn Osorio Primary Care Provider: CORDELL Boyle HPI Reason for consult: left flank pain She presents with 8/10 left flank pain. She had ESBL E coli last month. SHe has no fever or chills. She has no obstruction. Review of Systems Review of Systems: Yes all other systems are reviewed and are negative PMFSH Past Medical History Medical History Asthma Diabetes Social History Social History Household Members: Spouse and Children Housing: House Do you presently have visiting nurse or other home services: No Alcohol intake: never Patient Tobacco Use Status: Never used Tobacco Use of substances other than those prescribed or required for medical reasons: No Currently Displaying Signs/Symptoms of Drug Intoxication Withdrawal: No Have you been hit, kicked, punched, or otherwise hurt by someone within the past year? If so, by whom?: No Do you feel safe in your current relationship?: Yes Is there a partner from a previous relationship who is making you feel unsafe now?: No Are you made to feel afraid or neglected: No Advance Directives: No Advance Directives Information Provided: No Do you have thoughts of harming others: None Do you have a plan to hurt others: No Plan Recently lost weight without trying: No Eating poorly because of decreased appetite: No Nutrition Risks: No Nutritional Risk Patient : No : No Poor oral hygiene: No service: No Current occupational status: employed Meds Allergies Allergy/AdvReac Type Severity Reaction Status Date / Time some adhesives Allergy Unknown rash Uncoded 08/06/21 14:56 Active Medications: Current Medications Acetaminophen (Acetaminophen 325 Mg Tablet) 650 mg PO Q6H PRN PRN Reason: Pain, Mild (Pain Scale 1-3) Last Admin: 09/15/21 00:29 Dose: 650 mg Documented by: Aspirin (Aspirin Enteric Coated 81 Mg Tablet.) 81 mg PO DAILY [facility] Last Admin: 09/15/21 08:13 Dose: 81 mg Documented by: Empagliflozin (Empagliflozin 10 Mg Tablet) 10 mg PO DAILY [facility] Last Admin: 09/15/21 08:13 Dose: 10 mg Documented by: Enoxaparin Sodium (Enoxaparin Sodium 40 Mg/0.4 Ml Syringe) 40 mg SUBCUT Q24H [facility] Last Admin: 09/14/21 16:21 Dose: 40 mg Documented by: Meropenem 1 gm/ Sodium (Chloride) 100 mls @ 200 mls/hr IV Q8H [facility] Last Infusion: 09/15/21 08:58 Dose: Infused Documented by: Insulin Glargine (Insulin Glargine,Hum.Rec.Anlog 100 Unit/Ml 10 Ml Vial) 30 unit SUBCUT DAILY [facility] Last Admin: 09/15/21 08:17 Dose: 30 unit Documented by: Insulin Pump (Subcutaneous Insulin Pump) 1 each SUBCUT QIDACHS [facility]; Protocol Last Admin: 09/15/21 11:52 Dose: 1 each Documented by: Lidocaine (Lidocaine 4 % Patch Adh..Patch) 1 patch TRANSDERMA DAILY [facility]; Protocol Lisinopril (Lisinopril 2.5 Mg Tablet) 2.5 mg PO DAILY [facility]; Protocol Last Admin: 09/15/21 08:13 Dose: 2.5 mg Documented by: Metformin HCl (Metformin Hcl Er 500 Mg Tab.Er.24h) 1,000 mg PO DAILY [facility] Ondansetron HCl (Ondansetron Hcl 4 Mg/2 Ml Vial) 4 mg IVPUSH Q8H PRN PRN Reason: Nausea and Vomiting Pharmacy Consult (Consult Rx Perform Med Rec) 1 each MISCELLANE ONCE PRN PRN Reason: Consult order Sodium Chloride (0.9 % Sodium Chloride Flush 3 Ml Syringe) 3 ml IVFLUSH QSHIFT [facility] Last Admin: 09/15/21 08:18 Dose: 3 ml Documented by: Home Medications Medication Instructions Recorded Confirmed Last Taken Type aspirin 81 mg tablet,delayed 81 mg PO DAILY 09/14/21 09/14/21 09/13/21 History release dapagliflozin 10 mg tablet 10 mg PO DAILY 09/14/21 09/14/21 09/13/21 History (Farxiga) dulaglutide 3 mg/0.5 mL 3 mg SUBCUT MO@1000 09/14/21 09/14/21 09/08/21 History subcutaneous pen injector (Trulicity) insulin glargine 100 unit/mL 30 unit SUBCUT DAILY 09/14/21 09/14/21 Unknown History subcutaneous solution (Lantus U-100 Insulin) insulin lispro 100 unit/mL See Rx Instructions .ROUTE .COMPLEX 09/14/21 09/14/21 Unknown History subcutaneous cartridge (Humalog U-100 Insulin) lisinopril 2.5 mg tablet 2.5 mg PO DAILY 09/14/21 09/14/21 09/13/21 History metformin 500 mg tablet,extended 1,000 mg PO DAILY 09/14/21 09/14/21 09/13/21 History release 24 hr Physical Exam Vital Signs: Vital Signs: Last Vital Signs Temp 97.6 F 09/15/21 11:23 Pulse 91 09/15/21 11:23 Resp 20 09/15/21 11:23 BP 135/87 09/15/21 11:23 Pulse Ox 96 09/15/21 11:23 BMI result Body Mass Index 40.3 Const: General: cooperative HEENT: Head: Yes normal to inspection Mouth: Normal oral and palatal mucosa present Eyes: General: appearance normal, both eyes and all related structures Resp: Effort & Inspection: normal respiratory effort Cardio: Rate: regular rate Rhythm: regular rhythm GI: Palpation (GI): Soft to palpation (left flank pain) Skin: General skin exam: no rashes or lesions noted Results Labs CBC & Chem 7: 09/15/21 05:17 09/15/21 05:17 Labs: Short CBC 09/15/21 Range/Units 05:17 WBC 5.3 (4.8-10.8) X10*3/uL Hgb 12.1 (12.0-16.0) g/dl Hct 35.8 L (37.0-47.0) % Plt Count 351 (160-400) X10*3/uL BMP 09/15/21 05:17 Sodium 136 Potassium 4.1 Chloride 104 Carbon Dioxide 26 BUN 13 Creatinine 0.72 Calcium 8.8 D Microbiology Microbiology Results: Microbiology 09/14/21 08:13 Urine clean catch - Clean Catch Midstream Urine Culture - Final 09/14/21 04:09 Urine clean catch - Urine sy top Urine Culture - Final 09/13/21 23:54 Blood - Venous Blood Culture - Preliminary No growth after 24 hours. 09/13/21 23:50 Blood - Venous Blood Culture - Preliminary No growth after 24 hours. Assessment and Plan (1) Back pain: Status: Acute (2) Sepsis: Status: Acute She has no specific organism in urine, She has no bacteremia Possible sensitive organism Plan Await final blood cultures. May switch to Ceftriaxone and then Ceftin 500 mg bid for fourteen days if no resistance found. Urology followup
[2021-09-15] MEDS: Lidocaine 4 % Patch ADH..PATCH 1 PATCH TRANSDERMA (15:42)
== END 2021-09-15 16:39 | disposition home or self-care (01) | DRG 463 ==
LOC: HO.ED 09-14 06:27 → HO.EDOVER 09-14 16:03 → HO.S3 09-14 19:35
PROVIDERS: Admitting Provider Nurse Practitioner Acute Care; Emergency Provider Student in an Organized Health Care Education/Training Program; PCP Nurse Practitioner Family; Visit Provider Nurse Practitioner Acute Care
DX: N39.0 Urinary tract infection, site not specified (principal); E11.9 Type 2 diabetes mellitus without complications; J45.909 Unspecified asthma, uncomplicated; Z96.41 Presence of insulin pump (external) (internal); Z87.440 Personal history of urinary (tract) infections; Z20.822 Contact with and (suspected) exposure to COVID-19; Z79.4 Long term (current) use of insulin; Z79.82 Long term (current) use of aspirin; Z79.899 Other long term (current) drug therapy
CPT/HCPCS: 36415; 72100; 74177; 80048; 80053; 81001; 81003; 83605; 85025; 87040; 87086; 87635; 96365; 96375; 99218; 99285; J1335; J1650; J1885; J2185; J2405; Q9967

== ENCOUNTER 2021-11-20 20:49 | Emergency (ER) | payer OTHER, SELFPAY ==
--- NOTE | 2021-11-20 | ECG_ITS ---
Test Reason : CHEST TIGHTNESS Blood Pressure : / mmHG Vent. Rate : 093 BPM Atrial Rate : 093 BPM P-R Int : 204 ms QRS Dur : 076 ms QT Int : 370 ms P-R-T Axes : 018 016 020 degrees QTc Int : 460 ms Artifact in tracing Normal sinus rhythm Based on available leads, likely normal EKG. When compared with ECG of 02-AUG-2021 15:42, No significant change was found Referred By: Deidra Naqvi Electronically Signed By:ANA PAULA AVINA
[2021-11-20 21:01] VITALS: BP 153/80; PULSE 102; RESP 20; TEMP 36.9; O2SAT 98; BMI 40.5
[2021-11-20 21:14] LABS: MANUAL DIFF FLAG NO
[2021-11-20 21:15] LABS: Basophils Percent Auto 0.5 % (0-2); Eosinophils Absolute Auto 0.2 X10*3/uL (0.0-0.4); Eosinophils Percent Auto 3.2 % (0-4); Hematocrit 34.5 % (37.0-47.0); Hemoglobin 11.7 g/dl (12.0-16.0); Imm Gran Abs Auto 0.02 X10*3/uL (0.00-0.03); Imm Gran Pct Auto 0.3 % (0.0-0.4); Lymphocytes Percent Auto 30.8 % (20-40); Mean Corpuscular HGB Conc 33.9 g/dl (31.0-35.0); Mean Corpuscular Hemoglobin 28.1 pg (27.0-33.0); Mean Corpuscular Volume 82.7 fL (80.0-98.0); Mean Platelet Volume 9.5 fL (9.4-12.3); Monocytes Absolute Auto 0.5 X10*3/uL (0.1-1.2); Monocytes Percent Auto 7.9 % (2-11); Neutrophils Absolute Auto 3.8 x10*3/uL (2.0-8.3); Neutrophils Percent Auto 57.3 % (45-73); Platelet Count 309 X10*3/uL (160-400); Red Blood Count 4.17 X10*6/uL (4.20-5.50); Red Cell Distribution Width 13.4 % (11.0-16.0); White Blood Count 6.6 X10*3/uL (4.8-10.8)
[2021-11-20 21:29] LABS: Anion Gap 13 (12-20); Blood Urea Nitrogen 10 mg/dL (9-16); Calcium 8.6 mg/dL (8.4-10.2); Carbon Dioxide 24 mmol/L (22-29); Chloride 102 mmol/L (96-108); Creatinine Clr Calc Pharmacy 115.6; Estimated Glomerular Filt Rate > 60; Glucose Random 310 mg/dL (60-115); Lipase 19 U/L (8-78); Potassium 3.6 mmol/L (3.3-5.1); Sodium 135 mmol/L (135-145)
[2021-11-20 21:34] LABS: Troponin-I High Sensitivity < 3.5 ng/L (<3.5-17.0)
--- NOTE | 2021-11-21 | ECG_ITS ---
Test Reason : REPEAT/CHEST PAIN Blood Pressure : / mmHG Vent. Rate : 086 BPM Atrial Rate : 086 BPM P-R Int : 184 ms QRS Dur : 084 ms QT Int : 374 ms P-R-T Axes : 016 017 015 degrees QTc Int : 447 ms Normal sinus rhythm Normal ECG When compared with ECG of 02-AUG-2021 15:42, No significant change was found Referred By: Deidra Naqvi Electronically Signed By:ANA PAULA AVINA
[2021-11-21 00:34] VITALS: BP 146/87; PULSE 91; RESP 18; TEMP 36.7; O2SAT 98
--- NOTE | 2021-11-21 00:38 | ED.CHESTPAIN ---
HPI - Chest Pain General Chief Complaint: Chest Pain Stated Complaint: throat pain, trouble breathing Time Seen by Provider: 11/21/21 00:18 Source: patient Mode of arrival: ambulatory Limitations: no limitations History of Present Illness HPI narrative: 41-year-old female presents with multiple complaints. States that she has had chest tightness, esophageal burning, gallbladder pain, and left lower extremity swelling. MD complaint: chest pain Onset (ago): month(s) Timing of current episode: episodic Prior episodes: Yes Onset: after eating Pain location: epigastric Pain radiation: none Severity: moderate Pain scale (0-10): 7 Quality: tightness and burning Relieving factors: nothing Exacerbating factors: eating Risk Factors Coronary artery disease risk factors: diabetes and hypertension Thoracic aortic dissection risk factors: none Related Data Home Medications Medication Instructions Recorded Confirmed aspirin 81 mg tablet,delayed 81 mg PO DAILY 09/14/21 09/14/21 release dapagliflozin 10 mg tablet 10 mg PO DAILY 09/14/21 09/14/21 (Farxiga) dulaglutide 3 mg/0.5 mL 3 mg subcut MO@1000 09/14/21 09/14/21 subcutaneous pen injector (Trulicity) insulin glargine 100 unit/mL 30 unit subcut DAILY 09/14/21 09/14/21 subcutaneous solution (Lantus U-100 Insulin) insulin lispro 100 unit/mL See Rx Instructions .Route .COMPLEX 09/14/21 09/14/21 subcutaneous cartridge (Humalog U-100 Insulin) lisinopril 2.5 mg tablet 2.5 mg PO DAILY 09/14/21 09/14/21 metformin 500 mg tablet,extended 1,000 mg PO DAILY 09/14/21 09/14/21 release 24 hr Previous Rx's Medication Instructions Recorded cefuroxime axetil 250 mg tablet 250 mg PO BID #8 tabs 09/15/21 lidocaine 4 % topical patch 1 patch transdermal DAILY #10 ea 09/15/21 (Lidocaine Pain Relief) omeprazole 20 mg capsule,delayed 20 mg PO DAILY #30 caps 11/21/21 release Allergies Allergy/AdvReac Type Severity Reaction Status Date / Time some adhesives Allergy Unknown rash Uncoded 11/20/21 21:01 Review of Systems Review of Systems: Constitutional: No Fever, No Chills ENT/Mouth: No Ear Pain, No Hoarseness, No sore throat Eyes: No Eye Pain, No Swelling, No Redness, No Foreign Body Cardiovascular: Positive Chest Pain, No SOB Respiratory: No Cough, No Dyspnea Gastrointestinal: Positive reflux, No Nausea, No Vomiting, No Diarrhea, positive abdominal Pain Genitourinary: No Dysuria, No Hematuria Musculoskeletal: No joint pain, No Myalgias, No Joint Swelling Skin: No Skin lacerations, No rash Neuro: No Weakness, No Numbness, No Paresthesias, No Loss of Consciousness, No Dizziness, No Headache Psych: No Anxiety/Panic, No Depression Heme/Lymph: no easy bruising, no Lymphadenopathy Endocrine: No Polyuria, No Polydipsia Yes all other systems are reviewed and are negative [facility] Past Medical History Attestation statement: The following information was validated with the patient. Source: old records reviewed Medical History Asthma Diabetes Diabetes Social History Social History Household Members: Spouse and Children Housing: House Do you presently have visiting nurse or other home services: No Alcohol intake: never Patient Tobacco Use Status: Never used Tobacco Advance Directives: No Advance Directives Information Provided: No service: No Current occupational status: employed Physical Exam Vital Signs: Vital Signs: Last Vital Signs Temp 98.0 F 11/21/21 00:34 Pulse 91 11/21/21 00:34 Resp 18 11/21/21 00:34 BP 146/87 H 11/21/21 00:34 Pulse Ox 98 11/21/21 00:34 O2 Del Method 11/21/21 00:34 BMI result Body Mass Index 40.5 Appearance: Alert. Oriented X3. No acute distress. Eyes: Pupils equal, round and reactive to light. EOMI. Sclera nonicteric. ENT: Pharynx normal. No tonsillar exudates. Neck: Normal inspection. Neck supple. No cervical lymphadenopathy. CVS: Normal heart rate and rhythm. Pulses normal. Respiratory: No respiratory distress. Breath sounds normal. Abdomen: Soft and nontender. Skin: Skin warm and dry. Normal skin color. Normal skin turgor. Extremities: No appreciable lower extremity edema. Get well-balanced well coordinated. Neuro: No motor deficit. No sensory deficit. Cranial nerves 2-12 Course Course Course Narrative: 41-year-old female presents with multiple complaints. States that she has burning in her esophagus, chest tightness, shortness of breath, all of which worsens after eating. States that she did take some Pepto-Bismol and Tums to help alleviate the pain with poor effect. She did note some dark stools after taking Pepto. Will order GI cocktail. Patient is also complaining of abdominal pain to the right upper quadrant. States that she does have have an appointment with a surgeon at [facility] for possible cholecystectomy consult. Patient does not report any referred shoulder pain, physical exam is negative for right upper quadrant pain. Patient's other complaint is left lower extremity swelling with left thigh pain. I do not appreciate any visibly enlarged lower extremity. I will order D-dimer Labs drawn while patient was in the emergency department waiting room. CBC is unremarkable. Chemistries indicated an elevated glucose of 310, patient is a known diabetic. Troponin and lipase are negative. Chest pain most likely due to GERD. Have patient follow up with Gastroenterology as well as order omeprazole. 01:56 Liver enzymes are unremarkable. ALT 43. D-dimer is negative. Plan of care to discharge patient to home with follow-up with Gastroenterology. Patient will follow-up her established surgeon. Patient verbalized understanding of and agrees to plan of care to discharge home. Verbalized understanding of signs and symptoms indicating need for emergent intervention MDM - Chest Pain Differential Diagnosis Differential diagnosis: Likely atypical chest pain, costochondritis and chest pain Medical Records Data Attestation: I reviewed the patient's medical records. Lab Data Attestation: I reviewed the patient's lab results. Result diagrams: 11/20/21 21:08 11/20/21 21:08 Labs: Lab Results 11/20/21 11/20/21 11/20/21 Range/Units 21:08 21:08 21:08 WBC 6.6 (4.8-10.8) X10*3/uL RBC 4.17 L (4.20-5.50) X10*6/uL Hgb 11.7 L (12.0-16.0) g/dl Hct 34.5 L (37.0-47.0) % MCV 82.7 (80.0-98.0) fL MCH 28.1 (27.0-33.0) pg MCHC 33.9 (31.0-35.0) g/dl RDW 13.4 (11.0-16.0) % Plt Count 309 (160-400) X10*3/uL MPV 9.5 (9.4-12.3) fL Immature Gran % (Auto) 0.3 (0.0-0.4) % Neut % (Auto) 57.3 (45-73) % Lymph % (Auto) 30.8 (20-40) % [place] % (Auto) 7.9 (2-11) % Eos % (Auto) 3.2 (0-4) % Baso % (Auto) 0.5 (0-2) % Lymph # (Auto) 2.0 (1.2-4.9) X10*3/uL [place] # (Auto) 0.5 (0.1-1.2) X10*3/uL Eos # (Auto) 0.2 (0.0-0.4) X10*3/uL Baso # (Auto) 0.0 (0.0-0.2) X10*3/uL Abs Immat Gran (auto) 0.02 (0.00-0.03) X10*3/uL Absolute Neuts (auto) 3.8 (2.0-8.3) x10*3/uL Absolute Nucleated RBC 0.000 (0.0-0.012) X10*3/uL Nucleated RBC % (auto) 0.0 (0.0-0.2) /100WBC Sodium 135 (135-145) mmol/L Potassium 3.6 (3.3-5.1) mmol/L Chloride 102 (96-108) mmol/L Carbon Dioxide 24 (22-29) mmol/L Anion Gap 13 (12-20) BUN 10 (9-16) mg/dL Creatinine 0.78 (0.5-1.4) mg/dL Estim Creat Clear Calc 115.6 Estimated GFR > 60 Random Glucose 310 H (60-115) mg/dL Calcium 8.6 (8.4-10.2) mg/dL Troponin I High Sens < 3.5 (<3.5-17.0) ng/L Lipase 19 (8-78) U/L ECG Data ECG #1: Attestation: I personally reviewed and interpreted this ECG as follows: ECG interpretation date: 11/21/21 ECG interpretation time: 02:11 Prior ECG tracings: available for review Interpretation: Vent. rate 86 BPM MD interval 184 ms QRS duration 84 ms QT/QTc 374/447 ms P-R-T axes 16 17 15 Normal sinus rhythm Normal ECG When compared with ECG of 02-AUG-2021 15:42, No significant change was found Discharge Plan Discharge Clinical Impression: Atypical chest pain, Chest pain due to GERD Patient Disposition: Home, Self-Care Instructions: Diabetic Gastroparesis (DC), Gastroesophageal Reflux Disease (ED), Noncardiac Chest Pain (ED), Gastroparesis (ED) Additional Instructions: You were evaluated for multiple complaints. Your chest pain is noncardiac related it. It most likely is due to reflux and or gastroparesis. Gastroparesis is common finding in persons that have diabetes. I prescribed omeprazole 20 mg daily. Please follow-up with Gastroenterology. I referred you to Dr. Kim. Please call and request an appointment for evaluation. Continue to follow-up with the surgeon at [facility] for your gallbladder concerns. Your D-dimer was negative. Left lower extremity swelling may likely be due to edema. Please elevate your feet as needed to help reduce swelling. Your blood pressure is elevated. Please follow-up with your primary care physician as you may need your blood pressure medications adjusted. Thank you for choosing this emergency department for evaluation. Please follow-up with primary care physician as needed. Return to the emergency department for any new, concerning, or worsening symptoms. Prescriptions: New omeprazole 20 mg capsule,delayed release(DR/EC) 20 mg PO DAILY Qty: 30 0RF No Action aspirin 81 mg Tablet,Delayed Release (Dr/Ec) 81 mg PO DAILY lisinopril 2.5 mg Tablet 2.5 mg PO DAILY Trulicity 3 mg/0.5 mL Pen Injector 3 mg SUBCUT MO@1000 Lantus U-100 Insulin 100 unit/mL Solution 30 unit SUBCUT DAILY Farxiga 10 mg Tablet 10 mg PO DAILY metformin 500 mg Tablet Extended Release 24 Hr 1,000 mg PO DAILY Humalog U-100 Insulin 100 unit/mL Cartridge See Rx Instructions .ROUTE .COMPLEX Rx Instructions: up to 100 units via insulin pump daily cefuroxime axetil 250 mg tablet 250 mg PO BID Qty: 8 0RF lidocaine [Lidocaine Pain Relief] 4 % Adhesive Patch,Medicated 1 patch transdermal DAILY Qty: 10 0RF Protocol: Apply to: Apply to: back Referrals: Cathy Kim MD [Physician] - (GERD)
[2021-11-21 01:48] LABS: D Dimer High Sensitivity 241 NG/ML
[2021-11-21 02:00] VITALS: BP 138/88; PULSE 88; RESP 16; O2SAT 97
[2021-11-21 02:02] LABS: Alanine Aminotransferase 43 U/L (0-31); Albumin Level 3.6 g/dL (3.5-5.0); Alkaline Phosphatase 59 U/L (39-117); Aspartate Amino Transferase 21 U/L (5-31); Bilirubin Direct < 0.2 mg/dL (0.0-0.5); Bilirubin Total 0.2 mg/dL (0.0-1.0)
[2021-11-21 02:08] LABS: Strep A Nucleic Acid Negative (Negative)
[2021-11-21] MEDS: PHENobarb/Hyoscy/Atropine/Scop 10 ML ELIXIR PO (03:05)
[2021-11-21] MEDS: Magnesium Hydrox/Alum Hydrox 30 ML ORAL.SUSP PO (03:06)
[2021-11-21] MEDS: Lidocaine HCl Viscous 2 % 15 ML SOLUTION MUCOUS MEM (03:06)
[2021-11-21] MEDS: Omeprazole 40 MG CAPSULE.DR PO (03:06)
== END 2021-11-21 03:14 | disposition home or self-care (01) ==
PROVIDERS: Nurse Practitioner Family; Emergency Provider Internal Medicine; PCP Nurse Practitioner Family
DX: R07.89 Other chest pain (principal); K21.9 Gastro-esophageal reflux disease without esophagitis; M79.652 Pain in left thigh; E11.9 Type 2 diabetes mellitus without complications; J45.909 Unspecified asthma, uncomplicated
CPT/HCPCS: 36415; 80048; 80076; 83690; 84484; 85025; 85379; 87651; 93005; 99283; 99284

== ENCOUNTER 2022-06-04 17:09 | Emergency (ER) | payer OTHER, SELFPAY ==
[2022-06-04 17:15] VITALS: BP 129/68; PULSE 113; RESP 20; TEMP 38.2; O2SAT 97; BMI 42.0
--- NOTE | 2022-06-04 17:17 | ED.GENADULT ---
HPI - General Adult General Chief complaint: Upper Respiratory Symptoms <CATHLEEN Trotter - Last Filed: 06/08/22 12:50> Stated complaint: fever <CATHLEEN Trotter - Last Filed: 06/08/22 12:50> Time Seen by Provider: 06/04/22 19:52 <CATHLEEN Trotter - Last Filed: 06/08/22 12:50> Related Data Home medications: Home Medications Medication Instructions Recorded Confirmed aspirin 81 mg tablet,delayed 81 mg PO DAILY 09/14/21 09/14/21 release dapagliflozin 10 mg tablet 10 mg PO DAILY 09/14/21 09/14/21 (Farxiga) dulaglutide 3 mg/0.5 mL 3 mg subcut MO@1000 09/14/21 09/14/21 subcutaneous pen injector (Trulicity) insulin glargine 100 unit/mL 30 unit subcut DAILY 09/14/21 09/14/21 subcutaneous solution (Lantus U-100 Insulin) insulin lispro 100 unit/mL See Rx Instructions .Route .COMPLEX 09/14/21 09/14/21 subcutaneous cartridge (Humalog U-100 Insulin) lisinopril 2.5 mg tablet 2.5 mg PO DAILY 09/14/21 09/14/21 metformin 500 mg tablet,extended 1,000 mg PO DAILY 09/14/21 09/14/21 release 24 hr Previous Rx's Medication Instructions Recorded cefuroxime axetil 250 mg tablet 250 mg PO BID #8 tabs 09/15/21 lidocaine 4 % topical patch 1 patch transdermal DAILY #10 ea 09/15/21 (Lidocaine Pain Relief) omeprazole 20 mg capsule,delayed 20 mg PO DAILY #30 caps 11/21/21 release ibuprofen 600 mg tablet 600 mg PO TID PRN fever or pain 06/04/22 #20 tabs levofloxacin 500 mg tablet 500 mg PO DAILY #6 tabs 06/04/22 phenazopyridine 100 mg tablet 100 mg PO TID 6 doses #6 tabs 06/04/22 <CATHLEEN Trotter - Last Filed: 06/08/22 12:50> Allergies/adverse reactions: Allergies Allergy/AdvReac Type Severity Reaction Status Date / Time some adhesives Allergy Unknown rash Uncoded 11/20/21 21:01 <CATHLEEN Trotter - Last Filed: 06/08/22 12:50> [facility] Past Medical History Medical History: Medical History Asthma Diabetes Diabetes <CATHLEEN Trotter - Last Filed: 06/08/22 12:50> Social History Social History: Social History Household Members: Spouse and Children Housing: House Do you presently have visiting nurse or other home services: No Alcohol intake: never Patient Tobacco Use Status: Never used Tobacco Advance Directives: No Advance Directives Information Provided: Yes service: No Current occupational status: employed <CATHLEEN Trotter - Last Filed: 06/08/22 12:50> Physical Exam ED Vital Signs: Vital Signs - 24 hr 06/04/22 17:15 Temperature 100.8 F H Pulse Rate 113 H Respiratory Rate 20 Blood Pressure 129/68 Pulse Oximetry 97 Oxygen Delivery Method Room Air BMI result Body Mass Index 42.0 <CATHLEEN Trotter - Last Filed: 06/08/22 12:50> Vital Signs - 24 hr 06/04/22 17:15 Temperature 100.8 F H Pulse Rate 113 H Respiratory Rate 20 Blood Pressure 129/68 Pulse Oximetry 97 Oxygen Delivery Method Room Air BMI result Body Mass Index 42.0 <Laure Valiente MD - Last Filed: 06/04/22 22:21> Course Course Course Narrative: RME: patient presents to the ED for cough, back pain, and fever. SARS and chest xray ordered <CATHLEEN Trotter - Last Filed: 06/08/22 12:50> RME: patient presents to the ED for cough, back pain, and fever. SARS and chest xray ordered Patient's urinalysis positive, clinically patient has pyelonephritis, white blood cell count normal, like normal, normal blood pressure. Additionally, patient likely has a viral syndrome, currently complaining of coughing. Sepsis not suspected. Patient given 1st dose of p.o. levofloxacin, patient will be going home. <Laure Valiente MD - Last Filed: 06/04/22 22:21> Medications Administered Discontinued Medications Generic Name Dose Route Start Last Admin Trade Name Freq PRN Reason Stop Dose Admin Acetaminophen 975 mg 06/04/22 17:16 06/04/22 17:20 Acetaminophen 325 Mg Tablet PO 06/04/22 17:17 975 mg ONCE ONE Administration Levofloxacin 500 mg 06/04/22 20:20 06/04/22 20:53 Levofloxacin 500 Mg Tablet PO 06/04/22 20:21 500 mg ONCE ONE Administration <CATHLEEN Trotter - Last Filed: 06/08/22 12:50> Medications Administered Discontinued Medications Generic Name Dose Route Start Last Admin Trade Name Sea PRN Reason Stop Dose Admin Acetaminophen 975 mg 06/04/22 17:16 06/04/22 17:20 Acetaminophen 325 Mg Tablet PO 06/04/22 17:17 975 mg ONCE ONE Administration Levofloxacin 500 mg 06/04/22 20:20 06/04/22 20:53 Levofloxacin 500 Mg Tablet PO 06/04/22 20:21 500 mg ONCE ONE Administration <Laure Valiente MD - Last Filed: 06/04/22 22:21> Medical Decision Making Lab Data Result Diagrams: : 06/04/22 21:14 06/04/22 21:14 <CATHLEEN Trotter - Last Filed: 06/08/22 12:50> Labs: Lab Results 06/04/22 06/04/22 06/04/22 Range/Units 17:55 20:05 20:05 WBC (4.8-10.8) X10*3/uL RBC (4.20-5.50) X10*6/uL Hgb (12.0-16.0) g/dl Hct (37.0-47.0) % MCV (80.0-98.0) fL MCH (27.0-33.0) pg MCHC (31.0-35.0) g/dl RDW (11.0-16.0) % Plt Count (160-400) X10*3/uL MPV (9.4-12.3) fL Immature Gran % (Auto) (0.0-0.4) % Neut % (Auto) (45-73) % Lymph % (Auto) (20-40) % [place] % (Auto) (2-11) % Eos % (Auto) (0-4) % Baso % (Auto) (0-2) % Lymph # (Auto) (1.2-4.9) X10*3/uL [place] # (Auto) (0.1-1.2) X10*3/uL Eos # (Auto) (0.0-0.4) X10*3/uL Baso # (Auto) (0.0-0.2) X10*3/uL Abs Immat Gran (auto) (0.00-0.03) X10*3/uL Absolute Neuts (auto) (2.0-8.3) x10*3/uL Absolute Nucleated RBC (0.0-0.012) X10*3/uL Nucleated RBC % (auto) (0.0-0.2) /100WBC Sodium (135-145) mmol/L Potassium (3.3-5.1) mmol/L Chloride (96-108) mmol/L Carbon Dioxide (22-29) mmol/L Anion Gap (12-20) BUN (9-16) mg/dL Creatinine (0.5-1.4) mg/dL Estim Creat Clear Calc Estimated GFR Random Glucose (60-115) mg/dL Lactic Acid (0.5-2.0) mmol/L Calcium (8.4-10.2) mg/dL Urine Color Yellow Urine Appearance Clear Urine pH 5.5 (5.0-9.0) Ur Specific [place] 1.015 (1.005-1.025) Urine Protein Trace (Neg-Trace) mg/dL Urine Glucose (UA) >=1000 H (Negative) mg/dL Urine Ketones Negative (Negative) mg/dL Urine Blood Negative (Negative) Urine Nitrite Positive H (Negative) Ur Leukocyte Esterase Moderate (2+) H (Negative) Urine RBC 0-2 (0-2) /HPF Urine WBC >50 H (0-5) /HPF Ur Squamous Epith Cells 0-2 (0-2) /HPF Urine Bacteria 4+ (None Seen) Hyaline Casts 0-2 (0-2) /LPF Urine Test NEGATIVE (NEGATIVE) Influenza Type A (PCR) NEGATIVE (Negative) Influenza Type B (PCR) NEGATIVE (Negative) RSV RNA Qual (PCR) NEGATIVE (Negative) SARS-CoV-2 RNA (RT-PCR) NEGATIVE (Negative) 06/04/22 06/04/22 06/04/22 Range/Units 21:14 21:14 21:14 WBC 9.5 (4.8-10.8) X10*3/uL RBC 3.83 L (4.20-5.50) X10*6/uL Hgb 10.5 L (12.0-16.0) g/dl Hct 31.2 L (37.0-47.0) % MCV 81.5 (80.0-98.0) fL MCH 27.4 (27.0-33.0) pg MCHC 33.7 (31.0-35.0) g/dl RDW 13.8 (11.0-16.0) % Plt Count 293 (160-400) X10*3/uL MPV 9.8 (9.4-12.3) fL Immature Gran % (Auto) 0.4 (0.0-0.4) % Neut % (Auto) 72.6 (45-73) % Lymph % (Auto) 17.6 L (20-40) % [place] % (Auto) 7.8 (2-11) % Eos % (Auto) 1.3 (0-4) % Baso % (Auto) 0.3 (0-2) % Lymph # (Auto) 1.7 (1.2-4.9) X10*3/uL [place] # (Auto) 0.7 (0.1-1.2) X10*3/uL Eos # (Auto) 0.1 (0.0-0.4) X10*3/uL Baso # (Auto) 0.0 (0.0-0.2) X10*3/uL Abs Immat Gran (auto) 0.04 H (0.00-0.03) X10*3/uL Absolute Neuts (auto) 6.9 (2.0-8.3) x10*3/uL Absolute Nucleated RBC 0.000 (0.0-0.012) X10*3/uL Nucleated RBC % (auto) 0.0 (0.0-0.2) /100WBC Sodium 135 (135-145) mmol/L Potassium 3.5 (3.3-5.1) mmol/L Chloride 101 (96-108) mmol/L Carbon Dioxide 26 (22-29) mmol/L Anion Gap 12 (12-20) BUN 14 (9-16) mg/dL Creatinine 0.79 (0.5-1.4) mg/dL Estim Creat Clear Calc 116.6 Estimated GFR > 60 Random Glucose 220 H (60-115) mg/dL Lactic Acid 1.1 (0.5-2.0) mmol/L Calcium 8.9 (8.4-10.2) mg/dL Urine Color Urine Appearance Urine pH (5.0-9.0) Ur Specific [place] (1.005-1.025) Urine Protein (Neg-Trace) mg/dL Urine Glucose (UA) (Negative) mg/dL Urine Ketones (Negative) mg/dL Urine Blood (Negative) Urine Nitrite (Negative) Ur Leukocyte Esterase (Negative) Urine RBC (0-2) /HPF Urine WBC (0-5) /HPF Ur Squamous Epith Cells (0-2) /HPF Urine Bacteria (None Seen) Hyaline Casts (0-2) /LPF Urine Test (NEGATIVE) Influenza Type A (PCR) (Negative) Influenza Type B (PCR) (Negative) RSV RNA Qual (PCR) (Negative) SARS-CoV-2 RNA (RT-PCR) (Negative) <CATHLEEN Trotter - Last Filed: 06/08/22 12:50> Lab Results 06/04/22 06/04/22 06/04/22 Range/Units 17:55 20:05 20:05 WBC (4.8-10.8) X10*3/uL RBC (4.20-5.50) X10*6/uL Hgb (12.0-16.0) g/dl Hct (37.0-47.0) % MCV (80.0-98.0) fL MCH (27.0-33.0) pg MCHC (31.0-35.0) g/dl RDW (11.0-16.0) % Plt Count (160-400) X10*3/uL MPV (9.4-12.3) fL Immature Gran % (Auto) (0.0-0.4) % Neut % (Auto) (45-73) % Lymph % (Auto) (20-40) % [place] % (Auto) (2-11) % Eos % (Auto) (0-4) % Baso % (Auto) (0-2) % Lymph # (Auto) (1.2-4.9) X10*3/uL [place] # (Auto) (0.1-1.2) X10*3/uL Eos # (Auto) (0.0-0.4) X10*3/uL Baso # (Auto) (0.0-0.2) X10*3/uL Abs Immat Gran (auto) (0.00-0.03) X10*3/uL Absolute Neuts (auto) (2.0-8.3) x10*3/uL Absolute Nucleated RBC (0.0-0.012) X10*3/uL Nucleated RBC % (auto) (0.0-0.2) /100WBC Sodium (135-145) mmol/L Potassium (3.3-5.1) mmol/L Chloride (96-108) mmol/L Carbon Dioxide (22-29) mmol/L Anion Gap (12-20) BUN (9-16) mg/dL Creatinine (0.5-1.4) mg/dL Estim Creat Clear Calc Estimated GFR Random Glucose (60-115) mg/dL Lactic Acid (0.5-2.0) mmol/L Calcium (8.4-10.2) mg/dL Urine Color Yellow Urine Appearance Clear Urine pH 5.5 (5.0-9.0) Ur Specific [place] 1.015 (1.005-1.025) Urine Protein Trace (Neg-Trace) mg/dL Urine Glucose (UA) >=1000 H (Negative) mg/dL Urine Ketones Negative (Negative) mg/dL Urine Blood Negative (Negative) Urine Nitrite Positive H (Negative) Ur Leukocyte Esterase Moderate (2+) H (Negative) Urine RBC 0-2 (0-2) /HPF Urine WBC >50 H (0-5) /HPF Ur Squamous Epith Cells 0-2 (0-2) /HPF Urine Bacteria 4+ (None Seen) Hyaline Casts 0-2 (0-2) /LPF Urine Test NEGATIVE (NEGATIVE) Influenza Type A (PCR) NEGATIVE (Negative) Influenza Type B (PCR) NEGATIVE (Negative) RSV RNA Qual (PCR) NEGATIVE (Negative) SARS-CoV-2 RNA (RT-PCR) NEGATIVE (Negative) 06/04/22 06/04/22 06/04/22 Range/Units 21:14 21:14 21:14 WBC 9.5 (4.8-10.8) X10*3/uL RBC 3.83 L (4.20-5.50) X10*6/uL Hgb 10.5 L (12.0-16.0) g/dl Hct 31.2 L (37.0-47.0) % MCV 81.5 (80.0-98.0) fL MCH 27.4 (27.0-33.0) pg MCHC 33.7 (31.0-35.0) g/dl RDW 13.8 (11.0-16.0) % Plt Count 293 (160-400) X10*3/uL MPV 9.8 (9.4-12.3) fL Immature Gran % (Auto) 0.4 (0.0-0.4) % Neut % (Auto) 72.6 (45-73) % Lymph % (Auto) 17.6 L (20-40) % [place] % (Auto) 7.8 (2-11) % Eos % (Auto) 1.3 (0-4) % Baso % (Auto) 0.3 (0-2) % Lymph # (Auto) 1.7 (1.2-4.9) X10*3/uL [place] # (Auto) 0.7 (0.1-1.2) X10*3/uL Eos # (Auto) 0.1 (0.0-0.4) X10*3/uL Baso # (Auto) 0.0 (0.0-0.2) X10*3/uL Abs Immat Gran (auto) 0.04 H (0.00-0.03) X10*3/uL Absolute Neuts (auto) 6.9 (2.0-8.3) x10*3/uL Absolute Nucleated RBC 0.000 (0.0-0.012) X10*3/uL Nucleated RBC % (auto) 0.0 (0.0-0.2) /100WBC Sodium 135 (135-145) mmol/L Potassium 3.5 (3.3-5.1) mmol/L Chloride 101 (96-108) mmol/L Carbon Dioxide 26 (22-29) mmol/L Anion Gap 12 (12-20) BUN 14 (9-16) mg/dL Creatinine 0.79 (0.5-1.4) mg/dL Estim Creat Clear Calc 116.6 Estimated GFR > 60 Random Glucose 220 H (60-115) mg/dL Lactic Acid 1.1 (0.5-2.0) mmol/L Calcium 8.9 (8.4-10.2) mg/dL Urine Color Urine Appearance Urine pH (5.0-9.0) Ur Specific [place] (1.005-1.025) Urine Protein (Neg-Trace) mg/dL Urine Glucose (UA) (Negative) mg/dL Urine Ketones (Negative) mg/dL Urine Blood (Negative) Urine Nitrite (Negative) Ur Leukocyte Esterase (Negative) Urine RBC (0-2) /HPF Urine WBC (0-5) /HPF Ur Squamous Epith Cells (0-2) /HPF Urine Bacteria (None Seen) Hyaline Casts (0-2) /LPF Urine Test (NEGATIVE) Influenza Type A (PCR) (Negative) Influenza Type B (PCR) (Negative) RSV RNA Qual (PCR) (Negative) SARS-CoV-2 RNA (RT-PCR) (Negative) <Laure Valiente MD - Last Filed: 06/04/22 22:21> Discharge Plan Discharge Clinical Impression: Acute viral syndrome, Pyelonephritis <CATHLEEN Trotter - Last Filed: 06/08/22 12:50> Patient Disposition: Home, Self-Care <CATHLEEN Trotter - Last Filed: 06/08/22 12:50> Additional Instructions: Please follow-up with your primary care physician tomorrow. If you have any worsening or new symptoms, please return to the emergency room or call 911 <CATHLEEN Trotter - Last Filed: 06/08/22 12:50> Prescriptions: New levofloxacin 500 mg tablet 500 mg PO DAILY Qty: 6 0RF ibuprofen 600 mg tablet 600 mg PO TID PRN (Reason: fever or pain) Qty: 20 0RF phenazopyridine 100 mg tablet 100 mg PO TID Qty: 6 0RF No Action aspirin 81 mg Tablet,Delayed Release (Dr/Ec) 81 mg PO DAILY lisinopril 2.5 mg Tablet 2.5 mg PO DAILY Trulicity 3 mg/0.5 mL Pen Injector 3 mg SUBCUT MO@1000 Lantus U-100 Insulin 100 unit/mL Solution 30 unit SUBCUT DAILY Farxiga 10 mg Tablet 10 mg PO DAILY metformin 500 mg Tablet Extended Release 24 Hr 1,000 mg PO DAILY Humalog U-100 Insulin 100 unit/mL Cartridge See Rx Instructions .ROUTE .COMPLEX Rx Instructions: up to 100 units via insulin pump daily cefuroxime axetil 250 mg tablet 250 mg PO BID Qty: 8 0RF lidocaine [Lidocaine Pain Relief] 4 % Adhesive Patch,Medicated 1 patch transdermal DAILY Qty: 10 0RF Protocol: Apply to: Apply to: back omeprazole 20 mg capsule,delayed release(DR/EC) 20 mg PO DAILY Qty: 30 0RF <CATHLEEN Trotter - Last Filed: 06/08/22 12:50> Interventions: ED Discharge Assessment Last Done: 06/04/22 22:37 <CATHLEEN Trotter - Last Filed: 06/08/22 12:50> Discharge Date/Time: 06/04/22 22:37 <CATHLEEN Trotter - Last Filed: 06/08/22 12:50>
[2022-06-04] MEDS: Acetaminophen 325 MG TABLET 975 MG PO (17:20)
[2022-06-04 18:39] LABS: Influenza A PCR NEGATIVE (Negative); Influenza B PCR NEGATIVE (Negative); Resp Syncy Virus RNA Qual PCR NEGATIVE (Negative); SARS COV2 PCR INHOUSE NEGATIVE (Negative)
--- NOTE | 2022-06-04 20:00 | ED.URI ---
HPI - URI/Sore Throat General Chief Complaint: Upper Respiratory Symptoms Stated Complaint: fever Time Seen by Provider: 06/04/22 19:52 Source: patient Mode of arrival: ambulatory Limitations: no limitations History of Present Illness HPI Narrative: Patient comes to the emergency room complaining of cough for a week, body aches and fever. Patient states that she has also had discomfort urinating. Patient states she is prone to urinary tract infections. Patient denies flank pain, no abdominal pain Related Data Home Medications Medication Instructions Recorded Confirmed aspirin 81 mg tablet,delayed 81 mg PO DAILY 09/14/21 09/14/21 release dapagliflozin 10 mg tablet 10 mg PO DAILY 09/14/21 09/14/21 (Farxiga) dulaglutide 3 mg/0.5 mL 3 mg subcut MO@1000 09/14/21 09/14/21 subcutaneous pen injector (Trulicity) insulin glargine 100 unit/mL 30 unit subcut DAILY 09/14/21 09/14/21 subcutaneous solution (Lantus U-100 Insulin) insulin lispro 100 unit/mL See Rx Instructions .Route .COMPLEX 09/14/21 09/14/21 subcutaneous cartridge (Humalog U-100 Insulin) lisinopril 2.5 mg tablet 2.5 mg PO DAILY 09/14/21 09/14/21 metformin 500 mg tablet,extended 1,000 mg PO DAILY 09/14/21 09/14/21 release 24 hr Previous Rx's Medication Instructions Recorded cefuroxime axetil 250 mg tablet 250 mg PO BID #8 tabs 09/15/21 lidocaine 4 % topical patch 1 patch transdermal DAILY #10 ea 09/15/21 (Lidocaine Pain Relief) omeprazole 20 mg capsule,delayed 20 mg PO DAILY #30 caps 11/21/21 release ibuprofen 600 mg tablet 600 mg PO TID PRN fever or pain 06/04/22 #20 tabs levofloxacin 500 mg tablet 500 mg PO DAILY #6 tabs 06/04/22 phenazopyridine 100 mg tablet 100 mg PO TID 6 doses #6 tabs 06/04/22 Allergies Allergy/AdvReac Type Severity Reaction Status Date / Time some adhesives Allergy Unknown rash Uncoded 11/20/21 21:01 Review of Systems Review of Systems: Constitutional : No Weight loss, complaining of subjective fever and chills ENT/Mouth : No Hearing loss, No Ear Pain, No Nasal Congestion, No Sinus Pain, No Hoarseness, No sore throat, No Rhinorrhea, No Swallowing Difficulty Eyes: No Eye Pain, No Swelling, No Redness, No Foreign Body, No Discharge, No Vision Changes Cardiovascular : No Chest Pain, No SOB, No Dyspnea on Exertion, No Orthopnea, No Edema, No Palpitations Respiratory : Complaining of dry Cough, No Sputum, No Wheezing, No Smoke Exposure, No Dyspnea Gastrointestinal : No Nausea, No Vomiting, No Diarrhea, No Constipation, No abdominal Pain, No Hematochezia, No Melena Genitourinary : n complaining of mild dysuria No Urinary Frequency, No Hematuria, No Urinary Incontinence, No Urgency, No Flank Pain, No Urinary Flow Changes, No Hesitancy Musculoskeletal : No joint pain, No Myalgias, No Joint Swelling Skin : No Skin Lesions, No rash Neuro : No Weakness, No Numbness, No Paresthesias, No Loss of Consciousness, No Dizziness, No Headache Psych : No Anxiety/Panic, No Depression, No SI/HI/AH/VH, No Social Issues, Heme/Lymph: No Bruising, No Bleeding,No Lymphadenopathy Endocrine : No Polyuria, No Polydipsia, No Temperature Intolerance PMFSH Past Medical History Medical History Asthma Diabetes Diabetes Social History Social History Household Members: Spouse and Children Housing: House Do you presently have visiting nurse or other home services: No Alcohol intake: never Patient Tobacco Use Status: Never used Tobacco service: No Current occupational status: employed Physical Exam Vital Signs: Vital Signs: Last Vital Signs Temp 100.8 F H 06/04/22 17:15 Pulse 113 H 06/04/22 17:15 Resp 20 06/04/22 17:15 BP 129/68 06/04/22 17:15 Pulse Ox 97 06/04/22 17:15 O2 Del Method 06/04/22 17:15 BMI result Body Mass Index 42.0 Const: Other: Appearance: Alert. Oriented X3. No acute distress. Well-appearing Eyes: Pupils equal, round and reactive to light. ENT: Pharynx normal. Neck: Normal inspection. Neck supple. No lymph nodes noted. No crepitus CVS: Normal heart rate and rhythm. Pulses normal. Normal S1 and S2 Respiratory: No respiratory distress. Breath sounds normal. No Wheezing. No rales Abdomen: Soft and nontender. No rigidity. No distention. Skin: Skin warm and dry. Normal skin color. Normal skin turgor. Extremities: No lower extremity edema. No Lacerations. No Rash Neuro: Oriented X 3. No motor deficit. No sensory deficit. Moving all extremities. No slurred speech. CN 2 through 12 grossly intact Psych: calm, cooperative, normal affect Course Course Course Narrative: Patient tested negative for COVID and flu, chest x-ray negative. Urinalysis pending. Patient's urinalysis is positive, patient's blood culture and lactic acid pending. Patient receiving p.o. levofloxacin. Medications Administered Discontinued Medications Generic Name Dose Route Start Last Admin Trade Name Freq PRN Reason Stop Dose Admin Acetaminophen 975 mg 06/04/22 17:16 06/04/22 17:20 Acetaminophen 325 Mg Tablet PO 06/04/22 17:17 975 mg ONCE ONE Administration Levofloxacin 500 mg 06/04/22 20:20 06/04/22 20:53 Levofloxacin 500 Mg Tablet PO 06/04/22 20:21 500 mg ONCE ONE Administration Medical Decision Making Lab Data Result Diagrams: 06/04/22 21:14 06/04/22 21:14 Labs: Lab Results 06/04/22 06/04/22 06/04/22 Range/Units 17:55 20:05 20:05 WBC (4.8-10.8) X10*3/uL RBC (4.20-5.50) X10*6/uL Hgb (12.0-16.0) g/dl Hct (37.0-47.0) % MCV (80.0-98.0) fL MCH (27.0-33.0) pg MCHC (31.0-35.0) g/dl RDW (11.0-16.0) % Plt Count (160-400) X10*3/uL MPV (9.4-12.3) fL Immature Gran % (Auto) (0.0-0.4) % Neut % (Auto) (45-73) % Lymph % (Auto) (20-40) % [place] % (Auto) (2-11) % Eos % (Auto) (0-4) % Baso % (Auto) (0-2) % Lymph # (Auto) (1.2-4.9) X10*3/uL [place] # (Auto) (0.1-1.2) X10*3/uL Eos # (Auto) (0.0-0.4) X10*3/uL Baso # (Auto) (0.0-0.2) X10*3/uL Abs Immat Gran (auto) (0.00-0.03) X10*3/uL Absolute Neuts (auto) (2.0-8.3) x10*3/uL Absolute Nucleated RBC (0.0-0.012) X10*3/uL Nucleated RBC % (auto) (0.0-0.2) /100WBC Sodium (135-145) mmol/L Potassium (3.3-5.1) mmol/L Chloride (96-108) mmol/L Carbon Dioxide (22-29) mmol/L Anion Gap (12-20) BUN (9-16) mg/dL Creatinine (0.5-1.4) mg/dL Estim Creat Clear Calc Estimated GFR Random Glucose (60-115) mg/dL Lactic Acid (0.5-2.0) mmol/L Calcium (8.4-10.2) mg/dL Urine Color Yellow Urine Appearance Clear Urine pH 5.5 (5.0-9.0) Ur Specific [place] 1.015 (1.005-1.025) Urine Protein Trace (Neg-Trace) mg/dL Urine Glucose (UA) >=1000 H (Negative) mg/dL Urine Ketones Negative (Negative) mg/dL Urine Blood Negative (Negative) Urine Nitrite Positive H (Negative) Ur Leukocyte Esterase Moderate (2+) H (Negative) Urine RBC 0-2 (0-2) /HPF Urine WBC >50 H (0-5) /HPF Ur Squamous Epith Cells 0-2 (0-2) /HPF Urine Bacteria 4+ (None Seen) Hyaline Casts 0-2 (0-2) /LPF Urine Test NEGATIVE (NEGATIVE) Influenza Type A (PCR) NEGATIVE (Negative) Influenza Type B (PCR) NEGATIVE (Negative) RSV RNA Qual (PCR) NEGATIVE (Negative) SARS-CoV-2 RNA (RT-PCR) NEGATIVE (Negative) 06/04/22 06/04/22 06/04/22 Range/Units 21:14 21:14 21:14 WBC 9.5 (4.8-10.8) X10*3/uL RBC 3.83 L (4.20-5.50) X10*6/uL Hgb 10.5 L (12.0-16.0) g/dl Hct 31.2 L (37.0-47.0) % MCV 81.5 (80.0-98.0) fL MCH 27.4 (27.0-33.0) pg MCHC 33.7 (31.0-35.0) g/dl RDW 13.8 (11.0-16.0) % Plt Count 293 (160-400) X10*3/uL MPV 9.8 (9.4-12.3) fL Immature Gran % (Auto) 0.4 (0.0-0.4) % Neut % (Auto) 72.6 (45-73) % Lymph % (Auto) 17.6 L (20-40) % [place] % (Auto) 7.8 (2-11) % Eos % (Auto) 1.3 (0-4) % Baso % (Auto) 0.3 (0-2) % Lymph # (Auto) 1.7 (1.2-4.9) X10*3/uL [place] # (Auto) 0.7 (0.1-1.2) X10*3/uL Eos # (Auto) 0.1 (0.0-0.4) X10*3/uL Baso # (Auto) 0.0 (0.0-0.2) X10*3/uL Abs Immat Gran (auto) 0.04 H (0.00-0.03) X10*3/uL Absolute Neuts (auto) 6.9 (2.0-8.3) x10*3/uL Absolute Nucleated RBC 0.000 (0.0-0.012) X10*3/uL Nucleated RBC % (auto) 0.0 (0.0-0.2) /100WBC Sodium 135 (135-145) mmol/L Potassium 3.5 (3.3-5.1) mmol/L Chloride 101 (96-108) mmol/L Carbon Dioxide 26 (22-29) mmol/L Anion Gap 12 (12-20) BUN 14 (9-16) mg/dL Creatinine 0.79 (0.5-1.4) mg/dL Estim Creat Clear Calc 116.6 Estimated GFR > 60 Random Glucose 220 H (60-115) mg/dL Lactic Acid 1.1 (0.5-2.0) mmol/L Calcium 8.9 (8.4-10.2) mg/dL Urine Color Urine Appearance Urine pH (5.0-9.0) Ur Specific [place] (1.005-1.025) Urine Protein (Neg-Trace) mg/dL Urine Glucose (UA) (Negative) mg/dL Urine Ketones (Negative) mg/dL Urine Blood (Negative) Urine Nitrite (Negative) Ur Leukocyte Esterase (Negative) Urine RBC (0-2) /HPF Urine WBC (0-5) /HPF Ur Squamous Epith Cells (0-2) /HPF Urine Bacteria (None Seen) Hyaline Casts (0-2) /LPF Urine Test (NEGATIVE) Influenza Type A (PCR) (Negative) Influenza Type B (PCR) (Negative) RSV RNA Qual (PCR) (Negative) SARS-CoV-2 RNA (RT-PCR) (Negative) Discharge Plan Discharge Clinical Impression: Acute viral syndrome, Pyelonephritis Patient Disposition: Home, Self-Care Instructions: Kidney Infection (ED), Viral Syndrome (ED) Additional Instructions: Please follow-up with your primary care physician tomorrow. If you have any worsening or new symptoms, please return to the emergency room or call 911 Prescriptions: New levofloxacin 500 mg tablet 500 mg PO DAILY Qty: 6 0RF ibuprofen 600 mg tablet 600 mg PO TID PRN (Reason: fever or pain) Qty: 20 0RF phenazopyridine 100 mg tablet 100 mg PO TID Qty: 6 0RF No Action aspirin 81 mg Tablet,Delayed Release (Dr/Ec) 81 mg PO DAILY lisinopril 2.5 mg Tablet 2.5 mg PO DAILY Trulicity 3 mg/0.5 mL Pen Injector 3 mg SUBCUT MO@1000 Lantus U-100 Insulin 100 unit/mL Solution 30 unit SUBCUT DAILY Farxiga 10 mg Tablet 10 mg PO DAILY metformin 500 mg Tablet Extended Release 24 Hr 1,000 mg PO DAILY Humalog U-100 Insulin 100 unit/mL Cartridge See Rx Instructions .ROUTE .COMPLEX Rx Instructions: up to 100 units via insulin pump daily cefuroxime axetil 250 mg tablet 250 mg PO BID Qty: 8 0RF lidocaine [Lidocaine Pain Relief] 4 % Adhesive Patch,Medicated 1 patch transdermal DAILY Qty: 10 0RF Protocol: Apply to: Apply to: back omeprazole 20 mg capsule,delayed release(DR/EC) 20 mg PO DAILY Qty: 30 0RF Interventions: ED Discharge Assessment Last Done: 06/04/22 22:37 Discharge Date/Time: 06/04/22 22:37
[2022-06-04 20:15] LABS: Appearance Urine Clear; Color Urine Yellow; Glucose Urine UA >=1000 mg/dL (Negative); Leukocyte Esterase Urine Moderate (2+) (Negative); Nitrite Urine Positive (Negative); PH 5.5 (5.0-9.0); Specific Gravity - Urine 1.015 (1.005-1.025); UMIC TRIGGER UACC YES; Urine Blood Negative (Negative); Urine Ketones Negative (Negative); Urine Protein Trace mg/dL (Neg-Trace)
[2022-06-04 20:17] LABS: UPreg QC Valid YES; Urine Pregnancy NEGATIVE (NEGATIVE)
[2022-06-04 20:20] LABS: Bacteria Urine 4+ (None Seen); Hyaline Casts Urine 0-2 /LPF (0-2); RBC Urine 0-2 /HPF (0-2); Squamous Epithelial Cell Urine 0-2 /HPF (0-2); UACC Culture Trigger YES; WBC Urine >50 /HPF (0-5)
[2022-06-04] MEDS: levoFLOXacin 500 MG TABLET PO (20:53)
[2022-06-04 21:21] LABS: MANUAL DIFF FLAG NO
[2022-06-04 21:26] LABS: Basophils Percent Auto 0.3 % (0-2); Eosinophils Absolute Auto 0.1 X10*3/uL (0.0-0.4); Eosinophils Percent Auto 1.3 % (0-4); Hematocrit 31.2 % (37.0-47.0); Hemoglobin 10.5 g/dl (12.0-16.0); Imm Gran Abs Auto 0.04 X10*3/uL (0.00-0.03); Imm Gran Pct Auto 0.4 % (0.0-0.4); Lymphocytes Absolute Auto 1.7 X10*3/uL (1.2-4.9); Lymphocytes Percent Auto 17.6 % (20-40); Mean Corpuscular HGB Conc 33.7 g/dl (31.0-35.0); Mean Corpuscular Hemoglobin 27.4 pg (27.0-33.0); Mean Corpuscular Volume 81.5 fL (80.0-98.0); Mean Platelet Volume 9.8 fL (9.4-12.3); Monocytes Absolute Auto 0.7 X10*3/uL (0.1-1.2); Monocytes Percent Auto 7.8 % (2-11); Neutrophils Absolute Auto 6.9 x10*3/uL (2.0-8.3); Neutrophils Percent Auto 72.6 % (45-73); Platelet Count 293 X10*3/uL (160-400); Red Blood Count 3.83 X10*6/uL (4.20-5.50); Red Cell Distribution Width 13.8 % (11.0-16.0); White Blood Count 9.5 X10*3/uL (4.8-10.8)
[2022-06-04 21:39] LABS: Lactic Acid 1.1 mmol/L (0.5-2.0)
[2022-06-04 21:43] LABS: Anion Gap 12 (12-20); Blood Urea Nitrogen 14 mg/dL (9-16); Calcium 8.9 mg/dL (8.4-10.2); Carbon Dioxide 26 mmol/L (22-29); Chloride 101 mmol/L (96-108); Creatinine Clr Calc Pharmacy 116.6; Estimated Glomerular Filt Rate > 60; Glucose Random 220 mg/dL (60-115); Potassium 3.5 mmol/L (3.3-5.1); Sodium 135 mmol/L (135-145)
== END 2022-06-04 22:37 | disposition home or self-care (01) ==
PROVIDERS: Physician Assistant; Emergency Provider Emergency Medicine
DX: B34.9 Viral infection, unspecified (principal); N12 Tubulo-interstitial nephritis, not specified as acute or chronic; R50.9 Fever, unspecified; Z20.828 Contact with and (suspected) exposure to other viral communicable diseases; E11.9 Type 2 diabetes mellitus without complications; I10 Essential (primary) hypertension; E66.9 Obesity, unspecified; Z68.41 Body mass index [BMI] 40.0-44.9, adult; Z79.4 Long term (current) use of insulin; Z79.899 Other long term (current) drug therapy
CPT/HCPCS: 0241U; 36415; 71045; 80048; 81001; 81025; 83605; 85025; 87040; 87077; 87086; 87088; 87186; 87205; 99283

== ENCOUNTER 2022-06-09 10:10 | Inpatient (IN) | payer OTHER, SELFPAY ==
[2022-06-09 10:25] VITALS: BP 139/85; PULSE 97; RESP 18; TEMP 36.8; O2SAT 98; BMI 42.0
[2022-06-09 10:54] LABS: MANUAL DIFF FLAG NO
[2022-06-09 10:57] LABS: Basophils Absolute Auto 0.1 X10*3/uL (0.0-0.2); Basophils Percent Auto 0.7 % (0-2); Eosinophils Absolute Auto 0.2 X10*3/uL (0.0-0.4); Eosinophils Percent Auto 2.2 % (0-4); Hematocrit 34.9 % (37.0-47.0); Hemoglobin 11.9 g/dl (12.0-16.0); Imm Gran Abs Auto 0.04 X10*3/uL (0.00-0.03); Imm Gran Pct Auto 0.5 % (0.0-0.4); Lymphocytes Absolute Auto 2.3 X10*3/uL (1.2-4.9); Mean Corpuscular HGB Conc 34.1 g/dl (31.0-35.0); Mean Corpuscular Hemoglobin 27.5 pg (27.0-33.0); Mean Corpuscular Volume 80.8 fL (80.0-98.0); Mean Platelet Volume 9.1 fL (9.4-12.3); Monocytes Absolute Auto 0.3 X10*3/uL (0.1-1.2); Monocytes Percent Auto 3.9 % (2-11); Neutrophils Absolute Auto 5.4 x10*3/uL (2.0-8.3); Neutrophils Percent Auto 64.7 % (45-73); Platelet Count 451 X10*3/uL (160-400); Red Blood Count 4.32 X10*6/uL (4.20-5.50); Red Cell Distribution Width 13.5 % (11.0-16.0); White Blood Count 8.3 X10*3/uL (4.8-10.8)
[2022-06-09 11:01] LABS: Appearance Urine Clear; Color Urine Dark Yellow; Glucose Urine UA Negative (Negative); Leukocyte Esterase Urine Small (1+) (Negative); Nitrite Urine Positive (Negative); Specific Gravity - Urine 1.015 (1.005-1.025); UMIC TRIGGER UACC YES; Urine Blood Trace (Negative); Urine Ketones Negative (Negative); Urine Protein Trace mg/dL (Neg-Trace)
[2022-06-09 11:10] LABS: Bacteria Urine 4+ (None Seen); Hyaline Casts Urine 0-2 /LPF (0-2); Lactic Acid 1.3 mmol/L (0.5-2.0); RBC Urine 0-2 /HPF (0-2); UACC Culture Trigger YES; WBC Urine 0-5 /HPF (0-5)
[2022-06-09 11:15] LABS: Alanine Aminotransferase 41 U/L (0-31); Albumin Level 3.8 g/dL (3.5-5.0); Alkaline Phosphatase 61 U/L (39-117); Anion Gap 12 (12-20); Aspartate Amino Transferase 27 U/L (5-31); Bilirubin Direct < 0.2 mg/dL (0.0-0.5); Bilirubin Total 0.2 mg/dL (0.0-1.0); Blood Urea Nitrogen 15 mg/dL (9-16); Calcium 9.3 mg/dL (8.4-10.2); Carbon Dioxide 28 mmol/L (22-29); Chloride 103 mmol/L (96-108); Creatinine Clr Calc Pharmacy 124.4; Estimated Glomerular Filt Rate > 60; Glucose Random 115 mg/dL (60-115); Magnesium 1.6 mg/dL (1.6-2.6); Potassium 3.8 mmol/L (3.3-5.1); Sodium 139 mmol/L (135-145); Total Protein 7.4 g/dL (6.5-8.0)
--- NOTE | 2022-06-09 11:33 | ED_ITS ---
HPI - Female Genitourinary General Chief complaint: Recheck/Abnormal Lab/Rx Stated complaint: Abnormal labs Time Seen by Provider: 06/09/22 11:28 Source: patient Mode of arrival: ambulatory History of Present Illness HPI Narrative: 41-year-old female with history of diabetes was called back due to E coli ESBL bacteremia from 06/04. Patient denies any further fever, chills, back pain, urinary symptoms since being started on Levaquin. However she was called back because of these laboratory results. Related Data Home Medications Medication Instructions Recorded Confirmed aspirin 81 mg tablet,delayed 81 mg PO DAILY 09/14/21 09/14/21 release dapagliflozin 10 mg tablet 10 mg PO DAILY 09/14/21 09/14/21 (Farxiga) dulaglutide 3 mg/0.5 mL 3 mg subcut MO@1000 09/14/21 09/14/21 subcutaneous pen injector (Trulicity) insulin glargine 100 unit/mL 30 unit subcut DAILY 09/14/21 09/14/21 subcutaneous solution (Lantus U-100 Insulin) insulin lispro 100 unit/mL See Rx Instructions .Route .COMPLEX 09/14/21 09/14/21 subcutaneous cartridge (Humalog U-100 Insulin) lisinopril 2.5 mg tablet 2.5 mg PO DAILY 09/14/21 09/14/21 metformin 500 mg tablet,extended 1,000 mg PO DAILY 09/14/21 09/14/21 release 24 hr Previous Rx's Medication Instructions Recorded cefuroxime axetil 250 mg tablet 250 mg PO BID #8 tabs 09/15/21 lidocaine 4 % topical patch 1 patch transdermal DAILY #10 ea 09/15/21 (Lidocaine Pain Relief) omeprazole 20 mg capsule,delayed 20 mg PO DAILY #30 caps 11/21/21 release ibuprofen 600 mg tablet 600 mg PO TID PRN fever or pain 06/04/22 #20 tabs levofloxacin 500 mg tablet 500 mg PO DAILY #6 tabs 06/04/22 phenazopyridine 100 mg tablet 100 mg PO TID 6 doses #6 tabs 06/04/22 Allergies Allergy/AdvReac Type Severity Reaction Status Date / Time some adhesives Allergy Unknown rash Uncoded 11/20/21 21:01 Review of Systems Review of Systems: Pertinent positives and negatives as stated in HPI. [facility] Past Medical History Source: nursing notes reviewed Medical History Asthma Diabetes Diabetes Social History Social History Household Members: Spouse and Children Housing: House Do you presently have visiting nurse or other home services: No Alcohol intake: never Patient Tobacco Use Status: Never used Tobacco Advance Directives: Yes Advance Directives Information Provided: Yes Advance Directives on File: Yes Advance Directives Date on File: 09/16/21 service: No Current occupational status: employed Physical Exam Vital Signs: Vital Signs: Last Vital Signs Temp 98.3 F 06/09/22 10:25 Pulse 97 06/09/22 10:25 Resp 18 06/09/22 10:25 BP 139/85 06/09/22 10:25 Pulse Ox 98 06/09/22 10:25 O2 Del Method 06/09/22 10:25 BMI result Body Mass Index 42.0 VITAL SIGNS: Reviewed. GENERAL: Well developed, well nourished, in no acute distress. HEAD: Normocephalic/atraumatic EYES: PERRLA, EOMI EARS: Ext canals without abnormality OROPHARYNX: no oral lesions noted, posterior pharynx clear LUNGS: Normal breath sounds. No adventitious sounds or accessory muscle use. SpO2<98> CARDIOVASCULAR: Regular rate and rhythm without noted murmurs ABDOMEN: Soft, non-tender, non-distended with bowel sounds, no CVA tenderness. NEUROLOGIC: Alert and oriented x 4. Strength and sensation to light touch were grossly intact x 4. Course Course Course Narrative: 41-year-old female with 2nd episode E coli bacteremia with ESBL. Patient is diabetic and although she is feeling much better her urine is still grossly positive for nitrite bacteria likely secondary to resistance noted against everything except for ertapenem and gentamicin. She is afebrile at this time w ithout leukocytosis and she has been accepted for admission to the hospitalists, she is pending viral testing and will have an IV placed. Reevaluation(s) Reevaluation #1: Consultation to the hospitalist's and after discussion they accept admission. Time: 11:32 Medical Decision Making Medical Decision Making MDM Narrative: 41-year-old female with history and clinical presentation consistent with 2nd episode of ESBL bacteremia. Although patient appears medically well she will need to be admitted for IV antibiotics, all lab work is been repeated to include urine sample. Differential Diagnosis Differential Diagnoses: The differential diagnosis associated with the presentation includes No differential. Admission/Observation Consideration of admission/observation: Escalation of care including admission/observation considered Consult Healthcare Provider Management of the patient was discussed with: Hospitalist Consultation for IV antibiotics as patient is diabetic and E coli ESBL bacteremic. Lab Data MDM Lab Attestation statement: I reviewed the patient's lab results. Please see the course Section for discussion Result Diagrams: 06/09/22 10:47 06/09/22 10:47 Labs: Lab Results 06/09/22 06/09/22 06/09/22 Range/Units 10:47 10:47 10:47 WBC 8.3 (4.8-10.8) X10*3/uL RBC 4.32 (4.20-5.50) X10*6/uL Hgb 11.9 L (12.0-16.0) g/dl Hct 34.9 L (37.0-47.0) % MCV 80.8 (80.0-98.0) fL MCH 27.5 (27.0-33.0) pg MCHC 34.1 (31.0-35.0) g/dl RDW 13.5 (11.0-16.0) % Plt Count 451 H D (160-400) X10*3/uL MPV 9.1 L (9.4-12.3) fL Immature Gran % (Auto) 0.5 H (0.0-0.4) % Neut % (Auto) 64.7 (45-73) % Lymph % (Auto) 28.0 (20-40) % [place] % (Auto) 3.9 (2-11) % Eos % (Auto) 2.2 (0-4) % Baso % (Auto) 0.7 (0-2) % Lymph # (Auto) 2.3 (1.2-4.9) X10*3/uL [place] # (Auto) 0.3 (0.1-1.2) X10*3/uL Eos # (Auto) 0.2 (0.0-0.4) X10*3/uL Baso # (Auto) 0.1 (0.0-0.2) X10*3/uL Abs Immat Gran (auto) 0.04 H (0.00-0.03) X10*3/uL Absolute Neuts (auto) 5.4 (2.0-8.3) x10*3/uL Absolute Nucleated RBC 0.000 (0.0-0.012) X10*3/uL Nucleated RBC % (auto) 0.0 (0.0-0.2) /100WBC Sodium 139 (135-145) mmol/L Potassium 3.8 (3.3-5.1) mmol/L Chloride 103 (96-108) mmol/L Carbon Dioxide 28 (22-29) mmol/L Anion Gap 12 (12-20) BUN 15 (9-16) mg/dL Creatinine 0.74 (0.5-1.4) mg/dL Estim Creat Clear Calc 124.4 Estimated GFR > 60 Random Glucose 115 (60-115) mg/dL Lactic Acid 1.3 (0.5-2.0) mmol/L Calcium 9.3 (8.4-10.2) mg/dL Magnesium 1.6 (1.6-2.6) mg/dL Total Bilirubin 0.2 (0.0-1.0) mg/dL Direct Bilirubin < 0.2 (0.0-0.5) mg/dL AST 27 (5-31) U/L ALT 41 H (0-31) U/L Alkaline Phosphatase 61 (39-117) U/L Total Protein 7.4 (6.5-8.0) g/dL Albumin 3.8 (3.5-5.0) g/dL Urine Color Urine Appearance Urine pH (5.0-9.0) Ur Specific [place] (1.005-1.025) Urine Protein (Neg-Trace) mg/dL Urine Glucose (UA) (Negative) mg/dL Urine Ketones (Negative) mg/dL Urine Blood (Negative) Urine Nitrite (Negative) Ur Leukocyte Esterase (Negative) Urine RBC (0-2) /HPF Urine WBC (0-5) /HPF Ur Squamous Epith Cells (0-2) /HPF Urine Bacteria (None Seen) Hyaline Casts (0-2) /LPF 06/09/ Range/Units 10:47 WBC (4.8-10.8) X10*3/uL RBC (4.20-5.50) X10*6/uL Hgb (12.0-16.0) g/dl Hct (37.0-47.0) % MCV (80.0-98.0) fL MCH (27.0-33.0) pg MCHC (31.0-35.0) g/dl RDW (11.0-16.0) % Plt Count (160-400) X10*3/uL MPV (9.4-12.3) fL Immature Gran % (Auto) (0.0-0.4) % Neut % (Auto) (45-73) % Lymph % (Auto) (20-40) % [place] % (Auto) (2-11) % Eos % (Auto) (0-4) % Baso % (Auto) (0-2) % Lymph # (Auto) (1.2-4.9) X10*3/uL [place] # (Auto) (0.1-1.2) X10*3/uL Eos # (Auto) (0.0-0.4) X10*3/uL Baso # (Auto) (0.0-0.2) X10*3/uL Abs Immat Gran (auto) (0.00-0.03) X10*3/uL Absolute Neuts (auto) (2.0-8.3) x10*3/uL Absolute Nucleated RBC (0.0-0.012) X10*3/uL Nucleated RBC % (auto) (0.0-0.2) /100WBC Sodium (135-145) mmol/L Potassium (3.3-5.1) mmol/L Chloride (96-108) mmol/L Carbon Dioxide (22-29) mmol/L Anion Gap (12-20) BUN (9-16) mg/dL Creatinine (0.5-1.4) mg/dL Estim Creat Clear Calc Estimated GFR Random Glucose (60-115) mg/dL Lactic Acid (0.5-2.0) mmol/L Calcium (8.4-10.2) mg/dL Magnesium (1.6-2.6) mg/dL Total Bilirubin (0.0-1.0) mg/dL Direct Bilirubin (0.0-0.5) mg/dL AST (5-31) U/L ALT (0-31) U/L Alkaline Phosphatase (39-117) U/L Total Protein (6.5-8.0) g/dL Albumin (3.5-5.0) g/dL Urine Color Dark Yellow Urine Appearance Clear Urine pH 6.0 (5.0-9.0) Ur Specific [place] 1.015 (1.005-1.025) Urine Protein Trace (Neg-Trace) mg/dL Urine Glucose (UA) Negative (Negative) mg/dL Urine Ketones Negative (Negative) mg/dL Urine Blood Trace H (Negative) Urine Nitrite Positive H (Negative) Ur Leukocyte Esterase Small (1+) H (Negative) Urine RBC 0-2 (0-2) /HPF Urine WBC 0-5 (0-5) /HPF Ur Squamous Epith Cells 3-5 (0-2) /HPF Urine Bacteria 4+ (None Seen) Hyaline Casts 0-2 (0-2) /LPF External Record Review External record reviewed: Outpatient record and Prior outpatient labs Chronic Conditions Patient?s care impacted by: Diabetes Critical Care Time Critical Care Time Critical Care Time: Yes Total Critical Care Time: 30 Attestation: I personally attest to this time spent taking care of the patient. Discharge Plan Discharge Clinical Impression: Bacteremia, Infection due to ESBL-producing Escherichia coli Patient Disposition: Admitted As Inpatient Prescriptions: No Action aspirin 81 mg Tablet,Delayed Release (Dr/Ec) 81 mg PO DAILY lisinopril 2.5 mg Tablet 2.5 mg PO DAILY Trulicity 3 mg/0.5 mL Pen Injector 3 mg SUBCUT MO@1000 Lantus U-100 Insulin 100 unit/mL Solution 30 unit SUBCUT DAILY Farxiga 10 mg Tablet 10 mg PO DAILY metformin 500 mg Tablet Extended Release 24 Hr 1,000 mg PO DAILY Humalog U-100 Insulin 100 unit/mL Cartridge See Rx Instructions .ROUTE .COMPLEX Rx Instructions: up to 100 units via insulin pump daily cefuroxime axetil 250 mg tablet 250 mg PO BID Qty: 8 0RF lidocaine [Lidocaine Pain Relief] 4 % Adhesive Patch,Medicated 1 patch transdermal DAILY Qty: 10 0RF Protocol: Apply to: Apply to: back omeprazole 20 mg capsule,delayed release(DR/EC) 20 mg PO DAILY Qty: 30 0RF levofloxacin 500 mg tablet 500 mg PO DAILY Qty: 6 0RF ibuprofen 600 mg tablet 600 mg PO TID PRN (Reason: fever or pain) Qty: 20 0RF phenazopyridine 100 mg tablet 100 mg PO TID Qty: 6 0RF
[2022-06-09 11:56] VITALS: BP 142/79; PULSE 82; RESP 16; TEMP 37.1; O2SAT 97
--- NOTE | 2022-06-09 12:05 | PC.NURSE ---
pt. alert and oriented. seen before for UTI. UA shows H nitrates. pelvic pain 07/24. IV in place. admission pending.
[2022-06-09 12:27] LABS: COVID-19 Test Negative (Negative); IDNOW Serial# 55D5AD1C
[2022-06-09 12:28] LABS: IDNOW Serial# 9DB6401D; Influenza A Negative (Negative); Influenza B2 Negative (Negative)
--- NOTE | 2022-06-09 12:37 | PM.IMHP ---
History of Present Illness Date of Service: 06/09/22 Chief Complaint: ESBL UTI 41 year old women with history of bacteremia and ESBL UTI. Patient came to the emergency department on 06/04/2022 with cough, body aches and fever. She also had discomfort while urinating. She has a history of UTIs in the past. She had blood and urine cultures done and subsequently they came back positive and she was called to come back to the emergency department. She had 1/2 blood cx ecoli and urine cx came back with ecoli ESBL positive. She had been on levaquin at home. She presented with no fever or leukocytosis. . She will be admitted for further management and treatment of E coli bacteremia and ESBL positive UTI. Review of Systems Review of Systems: Denies any recent fever chills or decrease in appetite respiratory denies any shortness of breath cardiovascular Denies chest pain gastrointestinal denies any dysphagia abdominal pain nausea vomiting or diarrhea genitourinary dysuria musculoskeletal denies any joint pain or swelling neuropsych denies any weakness or seizures all other systems reviewed are negative [facility] Medical History (Updated 06/09/22 @ 12:44 by Evelyn Osorio NP) Asthma Diabetes mellitus type 2 in obese Hypertension Obesity Family History (Updated 06/09/22 @ 12:44 by Evelyn Osorio NP) Mother Myocardial infarction Surgical History (Updated 06/09/22 @ 12:44 by Evelyn Osorio NP) Previous section Social History Household Members: Spouse and Children Housing: House Do you presently have visiting nurse or other home services: No Alcohol intake: never Patient Tobacco Use Status: Never used Tobacco Advance Directives: Yes Advance Directives Information Provided: Yes Advance Directives on File: Yes Advance Directives Date on File: 09/16/21 service: No Current occupational status: employed Meds Allergies Allergy/AdvReac Type Severity Reaction Status Date / Time some adhesives Allergy Unknown rash Uncoded 11/20/21 21:01 Active Medications: Current Medications Pharmacy Consult (Consult Rx Perform Med Rec) 1 each MISCELLANE ONCE PRN PRN Reason: Consult order Home Medications Medication Instructions Recorded Confirmed Last Taken Type aspirin 81 mg tablet,delayed 81 mg PO DAILY 09/14/21 09/14/21 09/13/21 History release lisinopril 2.5 mg tablet 2.5 mg PO DAILY 09/14/21 09/14/21 09/13/21 History metformin 500 mg tablet,extended 1,000 mg PO DAILY 09/14/21 09/14/21 09/13/21 History release 24 hr albuterol sulfate 90 mcg/actuation 2 puff inhalation Q6H PRN 06/09/22 06/09/22 06/08/22 History aerosol inhaler Shortness Of Breath Or Wheezing fluticasone furoate 100 1 puff inhalation DAILY 06/09/22 06/09/22 06/08/22 History mcg/actuation blister powder for inhalation (Arnuity Ellipta) fluticasone propionate 50 1 spray intranasal DAILY PRN 06/09/22 06/09/22 Unknown History mcg/actuation nasal Allergy Symptoms spray,suspension (Flonase Allergy Relief) insulin glargine-yfgn 100 unit/mL 40 - 70 unit subcut DAILY 06/09/22 06/09/22 06/08/22 History (3 mL) subcutaneous pen (Semglee (insulin glargine-yfgn) Pen) insulin lispro 100 unit/mL See Rx Instructions .Route .COMPLEX 06/09/22 Unknown History subcutaneous solution (Humalog U-100 Insulin) levocetirizine 5 mg tablet 5 mg PO DAILY PRN Allergy Symptoms 06/09/22 06/09/22 Unknown History nitrofurantoin macrocrystal 50 mg 1 cap PO DAILY 06/09/22 06/09/22 06/08/22 History capsule tirzepatide 5 mg/0.5 mL 5 mg subcut MARTELL@0900 06/09/22 06/09/22 06/07/22 History subcutaneous pen injector (Mounjaro) Physical Exam Vital Signs and Narrative: Vital Signs: Last Vital Signs Temp 98.7 F 06/09/22 11:56 Pulse 82 06/09/22 11:56 Resp 16 06/09/22 11:56 BP 142/79 H 06/09/22 11:56 Pulse Ox 97 06/09/22 11:56 O2 Del Method 06/09/22 11:56 BMI result Body Mass Index 42.0 Appearing in no acute distress head is normocephalic atraumatic eyes pupils are PERRLA sclera is anicteric mouth throat mucous membranes are intact and moist neck is supple no lymphadenopathy, no JVD noted lung sounds are clear to auscultation heart regular rate rhythm, clear S1, S2 positive bowel sounds, abdomen is soft, nontender neuro patient is alert x3, no focal deficits Results Labs CBC and Chem 7: 06/09/22 10:47 06/09/22 10:47 Labs: Laboratory Results - last 24 hr 06/09/22 06/09/22 06/09/22 10:47 10:47 10:47 MCV 80.8 MCH 27.5 MCHC 34.1 RDW 13.5 Plt Count 451 H D MPV 9.1 L Immature Gran % (Auto) 0.5 H Neut % (Auto) 64.7 Lymph % (Auto) 28.0 [place] % (Auto) 3.9 Eos % (Auto) 2.2 Baso % (Auto) 0.7 Lymph # (Auto) 2.3 [place] # (Auto) 0.3 Eos # (Auto) 0.2 Baso # (Auto) 0.1 Abs Immat Gran (auto) 0.04 H Absolute Neuts (auto) 5.4 Absolute Nucleated RBC 0.000 Nucleated RBC % (auto) 0.0 Anion Gap 12 Estim Creat Clear Calc 124.4 Estimated GFR > 60 Random Glucose 115 Lactic Acid 1.3 Calcium 9.3 Magnesium 1.6 Total Bilirubin 0.2 Direct Bilirubin < 0.2 AST 27 ALT 41 H Alkaline Phosphatase 61 Total Protein 7.4 Albumin 3.8 Urine Color Urine Appearance Urine pH Ur Specific [place] Urine Protein Urine Glucose (UA) Urine Ketones Urine Blood Urine Nitrite Ur Leukocyte Esterase Urine RBC Urine WBC Ur Squamous Epith Cells Urine Bacteria Hyaline Casts COVID-19 (RAMOS) COVID-19 Clin Com Influenza Type A (LUIS A) Influenza Type B (LUIS A) Influenza A & B Note 06/09/22 06/09/22 06/09/22 10:47 12:05 12:06 MCV MCH MCHC RDW Plt Count MPV Immature Gran % (Auto) Neut % (Auto) Lymph % (Auto) [place] % (Auto) Eos % (Auto) Baso % (Auto) Lymph # (Auto) [place] # (Auto) Eos # (Auto) Baso # (Auto) Abs Immat Gran (auto) Absolute Neuts (auto) Absolute Nucleated RBC Nucleated RBC % (auto) Anion Gap Estim Creat Clear Calc Estimated GFR Random Glucose Lactic Acid Calcium Magnesium Total Bilirubin Direct Bilirubin AST ALT Alkaline Phosphatase Total Protein Albumin Urine Color Dark Yellow Urine Appearance Clear Urine pH 6.0 Ur Specific [place] 1.015 Urine Protein Trace Urine Glucose (UA) Negative Urine Ketones Negative Urine Blood Trace H Urine Nitrite Positive H Ur Leukocyte Esterase Small (1+) H Urine RBC 0-2 Urine WBC 0-5 Ur Squamous Epith Cells 3-5 Urine Bacteria 4+ Hyaline Casts 0-2 COVID-19 (RAMOS) Negative COVID-19 Clin Com See Note Influenza Type A (LUIS A) Negative Influenza Type B (LUIS A) Negative Influenza A & B Note See Note Assessment and Plan (1) Bacteremia: Status: Acute Plan 41-year-old woman admitted with ESBL UTI and bacteremia E coli bacteremia 1/2 Secondary to UTI On meropenem Repeat cultures pending Id following ESBL UTI Meropenem Follow repeat urine culture Diabetes mellitus type 2 Poorly controlled Sliding scale, ADA diet, continue home metformin Hypertension Continue lisinopril Morbid obesity. BMI 42.1 Discussed importance of weight management as this may be contributing to worsening of other comorbidities DVT prophylaxis with early ambulation Attending Dr. Myers Full code Patient will require to inpatient midnights for treatment of ESBL UTI requiring IV meropenem, repeat blood cultures all pending. Time Spent With Patient Time: Total time managing care of this patient today ____ minutes. Quality Stroke Does the patient have a stroke diagnosis?: No VTE Prior VTE?: No VTE Risk Level:: Medical - low VTE Device Contraindication: Treatment Not Indicated VTE Drug Contraindication: Treatment Not Indicated
--- NOTE | 2022-06-09 12:43 | PHA.MEDREC ---
Pharmacy Consult ? Medication Reconciliation Pharmacy has completed the medication reconciliation.
[2022-06-09 14:28] VITALS: BP 159/95; PULSE 86; RESP 18; TEMP 37; O2SAT 96
--- NOTE | 2022-06-09 15:37 | PC.NURSE ---
pt resting comfortably. denies pain. antibiotic started.
--- NOTE | 2022-06-09 16:54 | PC.NURSE ---
pt. resting. asked for diet heidi matt and crackers. family member at bedside
--- NOTE | 2022-06-09 17:45 | MHC.CM.PN ---
CM met with admitted patient with bed assignment pending and her /HCP Jj Francois ([phone]). HCP on file. Lives with and children. Employed. Has insulin pump and DM testing supplies. No services. PCP-Jen Childers at [facility]. Pfizer x4. D/C plan: Home without services. Family to transport.
[2022-06-09 18:02] LABS: Glucose, Whole Blood 203 mg/dL (60-115)
[2022-06-09] MEDS: Insulin Lispro 100 UNIT/ML 3 ML VIAL SUBCUT ×3 (18:13→21:30)
--- NOTE | 2022-06-09 20:10 | PC.NURSE ---
RN to RN report given to Dari PALM. Pt being transferred to room 384. Pt aware of plan of care.
[2022-06-09 20:29] VITALS: BP 139/68; PULSE 82; RESP 16; TEMP 36.3; O2SAT 98
[2022-06-09 20:50] VITALS: BP 157/77; PULSE 85; RESP 20; TEMP 36.4; O2SAT 97
[2022-06-09 20:57] LABS: Glucose, Whole Blood 316 mg/dL (60-115)
[2022-06-09 21:24] VITALS: BMI 42.1
[2022-06-09] MEDS: 0.9 % Sodium Chloride Flush 3 ML SYRINGE IVFLUSH (21:31)
[2022-06-10 04:00] VITALS: BP 133/72; PULSE 88; RESP 18; TEMP 36.4; O2SAT 96
[2022-06-10 06:48] LABS: MANUAL DIFF FLAG NO
[2022-06-10 06:53] LABS: Basophils Percent Auto 0.5 % (0-2); Eosinophils Absolute Auto 0.2 X10*3/uL (0.0-0.4); Eosinophils Percent Auto 2.2 % (0-4); Hemoglobin 10.8 g/dl (12.0-16.0); Imm Gran Abs Auto 0.05 X10*3/uL (0.00-0.03); Imm Gran Pct Auto 0.6 % (0.0-0.4); Lymphocytes Absolute Auto 2.6 X10*3/uL (1.2-4.9); Mean Corpuscular HGB Conc 32.7 g/dl (31.0-35.0); Mean Corpuscular Hemoglobin 26.9 pg (27.0-33.0); Mean Corpuscular Volume 82.1 fL (80.0-98.0); Mean Platelet Volume 9.4 fL (9.4-12.3); Monocytes Absolute Auto 0.4 X10*3/uL (0.1-1.2); Monocytes Percent Auto 4.7 % (2-11); Neutrophils Absolute Auto 4.8 x10*3/uL (2.0-8.3); Platelet Count 391 X10*3/uL (160-400); Red Blood Count 4.02 X10*6/uL (4.20-5.50); Red Cell Distribution Width 13.6 % (11.0-16.0)
[2022-06-10 07:21] LABS: Anion Gap 11 (12-20); Blood Urea Nitrogen 14 mg/dL (9-16); Carbon Dioxide 26 mmol/L (22-29); Chloride 103 mmol/L (96-108); Creatinine Clr Calc Pharmacy 124.6; Estimated Glomerular Filt Rate > 60; Glucose Random 268 mg/dL (60-115); Potassium 3.9 mmol/L (3.3-5.1); Sodium 136 mmol/L (135-145)
[2022-06-10 07:39] VITALS: BP 113/61; PULSE 80; RESP 18; TEMP 36.8; O2SAT 97
[2022-06-10 07:57] LABS: Glucose, Whole Blood 249 mg/dL (60-115)
[2022-06-10 07:59] LABS: Calcium 8.8 mg/dL (8.4-10.2)
[2022-06-10] MEDS: Insulin Lispro 100 UNIT/ML 3 ML VIAL SUBCUT ×8 (08:07→20:46)
[2022-06-10] MEDS: lisinopriL 2.5 MG TABLET PO (08:07)
[2022-06-10] MEDS: Aspirin Enteric Coated 81 MG TABLET.DR PO (08:07)
[2022-06-10] MEDS: 0.9 % Sodium Chloride Flush 3 ML SYRINGE IVFLUSH ×3 (08:07→23:04)
[2022-06-10] MEDS: metFORMIN HCl ER 500 MG TAB.ER.24H 1000 MG PO (08:07)
[2022-06-10] MEDS: Acetaminophen 325 MG TABLET 650 MG PO ×2 (08:13→20:46)
[2022-06-10 11:36] LABS: Glucose, Whole Blood 272 mg/dL (60-115)
--- NOTE | 2022-06-10 14:24 | HO.PM.IMPN ---
Subjective Subjective Date of Service: 06/10/22 Review of Systems Follow up ESBL UTI feeling fine no pain, nausea or vomiting Physical Exam Vital Signs: Vital Signs: Last Vital Signs Temp 98.3 F 06/10/22 07:39 Pulse 80 06/10/22 07:39 Resp 18 06/10/22 07:39 BP 113/61 06/10/22 07:39 Pulse Ox 97 06/10/22 07:39 O2 Del Method 06/10/22 07:39 BMI result Body Mass Index 42.1 Appearing in no acute distress lung sounds are clear to auscultation heart regular rate rhythm, clear S1, S2 positive bowel sounds, abdomen is soft, nontender neuro patient is alert x3, no focal deficits Objective Data Active Medications Acetaminophen (Acetaminophen 325 Mg Tablet) 650 mg PO Q6H PRN PRN Reason: Pain, Mild (Pain Scale 1-3) Last Admin: 06/10/22 08:13 Dose: 650 mg Documented By: ELISA Albuterol Sulfate (Albuterol Sulfate 90 Mcg 8 Gm Inhaler) 2 puff INHALE Q6H PRN PRN Reason: Shortness Of Breath Or Wheezing Aspirin (Aspirin Enteric Coated 81 Mg Tablet.Dr) 81 mg PO DAILY [facility] Last Admin: 06/10/22 08:07 Dose: 81 mg Documented By: ELISA Dextrose (Dextrose 50 % 25 Gm/50 Ml Syringe) 25 gm IVPUSH Q15M PRN; Protocol PRN Reason: per Hypoglycemia Standing Ord. Fluticasone Propionate (Fluticasone Propionate Nasal 16 Gm [place]) 1 spray NOSTRIL-B DAILY PRN PRN Reason: Allergy Symptoms Glucose (Glucose Gel 15 Gm Gel..Gram.) 15 gm PO Q15M PRN; Protocol PRN Reason: per Hypoglycemia Standing Ord. Meropenem 1 gm/ Sodium (Chloride) 100 mls @ 200 mls/hr IV Q8H [facility] Last Infusion: 06/10/22 06:38 Dose: 0 mls/hr Documented By: SHELBI Ibuprofen (Ibuprofen 600 Mg Tablet) 600 mg PO TID PRN PRN Reason: fever or pain Insulin Human Lispro (Insulin Lispro 100 Unit/Ml 3 Ml Vial) 0 unit SUBCUT QIDACHS [facility]; Protocol Last Admin: 06/10/22 11:36 Dose: 6 unit Documented By: ELISA Insulin Human Lispro (Insulin Lispro 100 Unit/Ml 3 Ml Vial) 5 unit SUBCUT QIDACHS [facility] Last Admin: 06/10/22 11:35 Dose: 5 unit Documented By: ELISA Lisinopril (Lisinopril 2.5 Mg Tablet) 2.5 mg PO DAILY [facility]; Protocol Last Admin: 06/10/22 08:07 Dose: 2.5 mg Documented By: ELISA Metformin HCl (Metformin Hcl Er 500 Mg Tab.Er.24h) 1,000 mg PO DAILY [facility] Last Admin: 06/10/22 08:07 Dose: 1,000 mg Documented By: ELISA Non-Formulary Medication (Fluticasone Furoate [Arnuity Ellipta]) 1 puff INHALE DAILY [facility] Non-Formulary Medication (Tirzepatide [Mounjaro]) 5 mg SUBCUT MARTELL@0900 [facility] Ondansetron HCl (Ondansetron Hcl 4 Mg/2 Ml Vial) 4 mg IVPUSH Q8H PRN PRN Reason: Nausea and Vomiting Pharmacy Consult (Consult Rx Perform Med Rec) 1 each MISCELLANE ONCE PRN PRN Reason: Consult order Sodium Chloride (0.9 % Sodium Chloride Flush 3 Ml Syringe) 3 ml IVFLUSH QSHIFT [facility] Last Admin: 06/10/22 08:07 Dose: 3 ml Documented By: ELISA Labs CBC & Chem 7: 06/10/22 06:16 06/10/22 06:16 Labs: Laboratory Results - last 24 hr 06/09/22 06/09/22 06/10/22 17:57 20:53 06:16 MCV 82.1 MCH 26.9 L MCHC 32.7 RDW 13.6 Plt Count 391 MPV 9.4 Immature Gran % (Auto) 0.6 H Neut % (Auto) 60.0 Lymph % (Auto) 32.0 [place] % (Auto) 4.7 Eos % (Auto) 2.2 Baso % (Auto) 0.5 Lymph # (Auto) 2.6 [place] # (Auto) 0.4 Eos # (Auto) 0.2 Baso # (Auto) 0.0 Abs Immat Gran (auto) 0.05 H Absolute Neuts (auto) 4.8 Absolute Nucleated RBC 0.000 Nucleated RBC % (auto) 0.0 Anion Gap Estim Creat Clear Calc Estimated GFR POC Glucose 203 H 316 H Random Glucose Calcium 06/10/22 06/10/22 06/10/22 06:16 07:38 11:28 MCV MCH MCHC RDW Plt Count MPV Immature Gran % (Auto) Neut % (Auto) Lymph % (Auto) [place] % (Auto) Eos % (Auto) Baso % (Auto) Lymph # (Auto) [place] # (Auto) Eos # (Auto) Baso # (Auto) Abs Immat Gran (auto) Absolute Neuts (auto) Absolute Nucleated RBC Nucleated RBC % (auto) Anion Gap 11 L Estim Creat Clear Calc 124.6 Estimated GFR > 60 POC Glucose 249 H 272 H Random Glucose 268 H Calcium 8.8 Microbiology Microbiology Results: Microbiology 06/09/22 10:47 Blood Culture - Preliminary Blood - Venous No growth after 24 hours. 06/09/22 10:47 Blood Culture - Preliminary Blood - Venous No growth after 24 hours. 06/09/22 Unknown Urine Culture - Preliminary Urine clean catch - Urine sy top Culture in progress. Assessment and Plan (1) Infection due to ESBL-producing Escherichia coli: Status: Acute Plan 41-year-old woman admitted with ESBL UTI and bacteremia E coli bacteremia 1/2 Secondary to UTI On meropenem Repeat cultures pending Id following ESBL UTI Meropenem Follow repeat urine culture Diabetes mellitus type 2 Poorly controlled Sliding scale, ADA diet, continue home metformin Hypertension Continue lisinopril Morbid obesity.? BMI 42.1 Discussed importance of weight management as this may be contributing to worsening of other comorbidities DVT prophylaxis with early ambulation Attending Dr. Myers Full code continued hospitalization for treatment of ESBL UTI requiring IV meropenem, repeat blood cultures all pending. Time Spent With Patient Time: Total time managing care of this patient today ____ minutes. Quality Stroke Does the patient have a stroke diagnosis?: No VTE Prior VTE?: No VTE Risk Level:: Medical - low VTE Device Contraindication: Treatment Not Indicated VTE Drug Contraindication: Treatment Not Indicated
--- NOTE | 2022-06-10 14:56 | MHC.CM.PN ---
per rounds no dc date at this time plan remanins home no servceis
[2022-06-10 15:31] VITALS: BP 132/80; PULSE 79; RESP 19; TEMP 36.6; O2SAT 98
[2022-06-10 16:36] LABS: Glucose, Whole Blood 194 mg/dL (60-115)
[2022-06-10 19:58] VITALS: BP 132/75; PULSE 88; RESP 18; TEMP 36.6; O2SAT 98
[2022-06-10 20:13] LABS: Glucose, Whole Blood 245 mg/dL (60-115)
[2022-06-10] MEDS: Ibuprofen 600 MG TABLET PO (20:46)
--- NOTE | 2022-06-10 23:08 | P.CNID_ITS ---
History of Present Illness Data of Consult Service Date: 06/10/22 Requesting physician: Evelyn Osorio Primary Care Provider: Unknown Physician HPI Reason for consult: ESBL E coli She presents with 6/10 pain lower back to flank for two days. She has no nausea or vomiting. She has been on Levaquin. She has ESBL E coli Review of Systems 2 Review of Systems: Yes all other systems are reviewed and are negative [facility] Past Medical History Medical History Asthma Diabetes mellitus type 2 in obese Hypertension Obesity Family History Family History Mother Myocardial infarction Family history: reviewed and not pertinent Surgical History Surgical History Previous section Social History Social History Household Members: Spouse Housing: House Do you presently have visiting nurse or other home services: No Alcohol intake: never Patient Tobacco Use Status: Never used Tobacco Use of substances other than those prescribed or required for medical reasons: No Currently Displaying Signs/Symptoms of Drug Intoxication Withdrawal: No Have you been hit, kicked, punched, or otherwise hurt by someone within the past year? If so, by whom?: No Do you feel safe in your current relationship?: Yes Is there a partner from a previous relationship who is making you feel unsafe now?: No Are you made to feel afraid or neglected: No [employer] Healthcare Practices: [facility] Advance Directives: Yes Advance Directives Information Provided: Yes Advance Directives on File: Yes Advance Directives Date on File: 09/16/21 Do you have thoughts of harming others: None Do you have a plan to hurt others: No Plan Recently lost weight without trying: No Eating poorly because of decreased appetite: No Nutrition Risks: No Nutritional Risk Patient : No : No Poor oral hygiene: No service: No Current occupational status: employed Meds Allergies Allergy/AdvReac Type Severity Reaction Status Date / Time some adhesives Allergy Unknown rash Uncoded 11/20/21 21:01 Active Medications: Current Medications Acetaminophen (Acetaminophen 325 Mg Tablet) 650 mg PO Q6H PRN PRN Reason: Pain, Mild (Pain Scale 1-3) Last Admin: 06/10/22 20:46 Dose: 650 mg Albuterol Sulfate (Albuterol Sulfate 90 Mcg 8 Gm Inhaler) 2 puff INHALE Q6H PRN PRN Reason: Shortness Of Breath Or Wheezing Aspirin (Aspirin Enteric Coated 81 Mg Tablet.Dr) 81 mg PO DAILY [facility] Last Admin: 06/10/22 08:07 Dose: 81 mg Dextrose (Dextrose 50 % 25 Gm/50 Ml Syringe) 25 gm IVPUSH Q15M PRN; Protocol PRN Reason: per Hypoglycemia Standing Ord. Fluticasone Propionate (Fluticasone Propionate Nasal 16 Gm [place]) 1 spray NOSTRIL-B DAILY PRN PRN Reason: Allergy Symptoms Glucose (Glucose Gel 15 Gm Gel..Gram.) 15 gm PO Q15M PRN; Protocol PRN Reason: per Hypoglycemia Standing Ord. Meropenem 1 gm/ Sodium (Chloride) 100 mls @ 200 mls/hr IV Q8H [facility] Last Admin: 06/10/22 23:03 Dose: 200 mls/hr Ibuprofen (Ibuprofen 600 Mg Tablet) 600 mg PO TID PRN PRN Reason: fever or pain Last Admin: 06/10/22 20:46 Dose: 600 mg Insulin Human Lispro (Insulin Lispro 100 Unit/Ml 3 Ml Vial) 0 unit SUBCUT QIDACHS [facility]; Protocol Last Admin: 06/10/22 20:46 Dose: 4 unit Insulin Human Lispro (Insulin Lispro 100 Unit/Ml 3 Ml Vial) 5 unit SUBCUT QIDACHS [facility] Last Admin: 06/10/22 20:46 Dose: 5 unit Lisinopril (Lisinopril 2.5 Mg Tablet) 2.5 mg PO DAILY [facility]; Protocol Last Admin: 06/10/22 08:07 Dose: 2.5 mg Metformin HCl (Metformin Hcl Er 500 Mg Tab.Er.24h) 1,000 mg PO DAILY [facility] Last Admin: 06/10/22 08:07 Dose: 1,000 mg Non-Formulary Medication (Fluticasone Furoate [Arnuity Ellipta]) 1 puff INHALE DAILY [facility] Non-Formulary Medication (Tirzepatide [Mounjaro]) 5 mg SUBCUT MARTELL@0900 [facility] Ondansetron HCl (Ondansetron Hcl 4 Mg/2 Ml Vial) 4 mg IVPUSH Q8H PRN PRN Reason: Nausea and Vomiting Pharmacy Consult (Consult Rx Perform Med Rec) 1 each MISCELLANE ONCE PRN PRN Reason: Consult order Sodium Chloride (0.9 % Sodium Chloride Flush 3 Ml Syringe) 3 ml [facility] Last Admin: 06/10/22 23:04 Dose: 3 ml Home Medications Medication Instructions Recorded Confirmed Last Taken Type aspirin 81 mg tablet,delayed 81 mg PO DAILY 09/14/21 06/09/22 06/08/22 History release lisinopril 2.5 mg tablet 2.5 mg PO DAILY 09/14/21 06/09/22 06/08/22 History metformin 500 mg tablet,extended 1,000 mg PO DAILY 09/14/21 06/09/22 06/08/22 History release 24 hr albuterol sulfate 90 mcg/actuation 2 puff inhalation Q6H PRN 06/09/22 06/09/22 06/08/22 History aerosol inhaler Shortness Of Breath Or Wheezing fluticasone furoate 100 1 puff inhalation DAILY 06/09/22 06/09/22 06/08/22 History mcg/actuation blister powder for inhalation (Arnuity Ellipta) fluticasone propionate 50 1 spray intranasal DAILY PRN 06/09/22 06/09/22 Unknown History mcg/actuation nasal Allergy Symptoms spray,suspension (Flonase Allergy Relief) insulin glargine-yfgn 100 unit/mL 40 - 70 unit subcut DAILY 06/09/22 06/09/22 06/08/22 History (3 mL) subcutaneous pen (Semglee (insulin glargine-yfgn) Pen) insulin lispro 100 unit/mL See Rx Instructions .Route .COMPLEX 06/09/22 06/09/22 06/08/22 History subcutaneous solution (Humalog U-100 Insulin) levocetirizine 5 mg tablet 5 mg PO DAILY PRN Allergy Symptoms 06/09/22 06/09/22 Unknown History nitrofurantoin macrocrystal 50 mg 1 cap PO DAILY 06/09/22 06/09/22 06/08/22 History capsule tirzepatide 5 mg/0.5 mL 5 mg subcut MARTELL@0900 06/09/22 06/09/22 06/07/22 History subcutaneous pen injector (Sharon) Physical Exam Vital Signs: Vital Signs: Last Vital Signs Temp 97.8 F 06/10/22 19:58 Pulse 88 06/10/22 19:58 Resp 18 06/10/22 19:58 BP 132/75 06/10/22 19:58 Pulse Ox 98 06/10/22 19:58 O2 Del Method 06/10/22 19:58 BMI result Body Mass Index 42.1 Results Labs CBC & Chem 7: 06/10/22 06:16 06/10/22 06:16 Labs: Short CBC 06/10/22 Range/Units 06:16 WBC 8.0 (4.8-10.8) X10*3/uL Hgb 10.8 L (12.0-16.0) g/dl Hct 33.0 L (37.0-47.0) % Plt Count 391 (160-400) X10*3/uL BMP 06/10/22 06:16 Sodium 136 Potassium 3.9 Chloride 103 Carbon Dioxide 26 BUN 14 Creatinine 0.74 Calcium 8.8 Microbiology Microbiology Results: Microbiology 06/09/22 10:47 Blood - Venous Blood Culture - Preliminary No growth after 24 hours. 06/09/22 10:47 Blood - Venous Blood Culture - Preliminary No growth after 24 hours. 06/09/22 Unknown Urine clean catch - Urine sy top Urine Culture - Preliminary Culture in progress. Assessment and Plan (1) Bacteremia: Status: Acute She has infection from ESBL She has concern about resistant organisms. (2) Infection due to ESBL-producing Escherichia coli: Status: Acute (3) Back pain: Status: Acute Plan Would give Merem 10-14 days Time Spent With Patient Time: Total time managing care of this patient today ____ minutes.
[2022-06-11 03:41] VITALS: BP 114/68; PULSE 79; RESP 18; TEMP 36.9; O2SAT 95
[2022-06-11 07:26] VITALS: BP 124/66; PULSE 84; RESP 18; TEMP 36.3; O2SAT 97
[2022-06-11 07:30] LABS: Glucose, Whole Blood 219 mg/dL (60-115)
[2022-06-11] MEDS: Insulin Lispro 100 UNIT/ML 3 ML VIAL SUBCUT ×6 (07:51→16:37)
[2022-06-11] MEDS: Aspirin Enteric Coated 81 MG TABLET.DR PO (07:52)
[2022-06-11] MEDS: metFORMIN HCl ER 500 MG TAB.ER.24H 1000 MG PO (07:52)
[2022-06-11] MEDS: 0.9 % Sodium Chloride Flush 3 ML SYRINGE IVFLUSH ×2 (07:52→16:32)
[2022-06-11] MEDS: lisinopriL 2.5 MG TABLET PO (07:52)
[2022-06-11] MEDS: Docusate Sodium 100 MG CAPSULE 200 MG PO (10:46)
[2022-06-11] MEDS: polyethylene glycoL 3350 17 GM POWD.PACK PO (10:47)
[2022-06-11 11:47] LABS: Glucose, Whole Blood 240 mg/dL (60-115)
--- NOTE | 2022-06-11 11:53 | MHC.CM.PN ---
referral to [facility] care for 11 days of i G IV ertapenem QD CM attempting to secure VNA as well. Patient has [employer] insurance
--- NOTE | 2022-06-11 15:09 | HO.MIDLINE ---
Midline Insertion MIDLINE INSERTION Diagnosis: [ESBL] Indication: [7 TO 10 DAYS ANTIBX] Pertinent Labs: [REVIEWED] Technique: Using sterile technique including cap and mask, glove and drape, the [RIGHT] arm was prepped and draped in the usual sterile fashion of full barrier technique with CHG. Using ultrasound guidance, [RIGHT BASILIC] vein access was obtained ON FIRST ATTEMPT BY SUBHASH SMITH RN. [[id number] PASV] was positioned. The procedure was performed in [RM 272]. Ultrasound was used to document vein patency and for needle entry. A formal ultrasound picture was recorded. [employer]ist has released the line for use and it is currently dressed with a StatLock, Tegaderm, and CHG disc. Verification has been performed for blood return and line patency. Arm Circumference: [31.5 CM] Equipment: [[employer] ST MIDLINE] Catheter Type: [[id number]] Lot #: [id number][]
[2022-06-11 15:17] VITALS: BP 137/93; PULSE 85; RESP 18; TEMP 36.4; O2SAT 97
[2022-06-11 15:45] LABS: Glucose, Whole Blood 262 mg/dL (60-115)
--- NOTE | 2022-06-11 16:04 | MHC.CM.PN ---
PATIENT TO RETURN HOME WITH [facility] FOR HOME INFUSION. [facility] RN TO TEACH. PATIENT HAD A TEACH HERE AT [facility] AND IS COMFORTABLE WITH ADMINISTRATION AND THE PLAN. SHE WILL GET HER DOSE OF ERTAPENEM AND DC HOME TODAY RN AWARE OF PLAN
--- NOTE | 2022-06-11 16:16 | P.DS_ITS ---
DS: Providers Provider Date of Service: 06/11/22 Date of admission: 06/09/22 14:59 Date of discharge: 06/11/22 Primary care physician: Unknown Physician Consults: 06/09/22 14:55 Consult to Infectious Diseases Routine Consulting Provider: Mary Valladares Reason for consultation: esbl uti, ecoli bacteremia Has provider been notified: No Attending physician on discharge: Marquis Resendiz Discharging clinician: Dorinda Hernandez DS: Diagnosis Discharge Diagnosis (1) Bacteremia: Status: Acute (2) Infection due to ESBL-producing Escherichia coli: Status: Acute DS: Summary Hospital Course Hospital Course: From H&P on day of admission 41 year old women with history of bacteremia and ESBL UTI.? Patient came to the emergency department on 06/04/2022 with cough, body aches and fever.? She also had discomfort while urinating.? She has a history of UTIs in the past.? She had blood and urine cultures done and subsequently they came back positive and she was called to come back to the emergency department. She had 1/2 blood cx ecoli and urine cx came back with ecoli ESBL positive. She had been on levaquin at home. She presented with no fever or leukocytosis. .? She will be admitted for further management and treatment of E coli bacteremia and ESBL positive UTI. ESBL E coli UTI/bacteremia - patient was initially treated in the emergency department with levofloxacin for UTI. Her urine culture returned growing ESBL positive E coli. Her blood cultures were also positive. She was asked to return to the emergency department. She was admitted and started on meropenem. She was seen in consultation by Infectious Diseases who recommended 14 days of IV ertapenem on discharge. She had midline placed on June 11, She had teaching on antibiotic administration. She received her 1st dose of ertapenem prior to discharge. She will be discharged home to complete total of 14 days of antibiotics. Time Spent with Patient Time attestation: Total time managing care of this patient today ____ minutes. Discharge coordination time: Greater than 30 minutes Quality: Safe Use of Opioids Does Pt have an Active Cancer Diagnosis on the Problem List?: No Quality: Stroke Does the patient have a stroke diagnosis?: No Physical Exam Vital Signs: Vital Signs: Last Vital Signs Temp 97.5 F 06/11/22 15:17 Pulse 85 06/11/22 15:17 Resp 18 12/29/22 15:17 BP 137/93 H 06/11/22 15:17 Pulse Ox 97 06/11/22 15:17 O2 Del Method 06/11/22 15:17 BMI result Body Mass Index 42.1 Const: General: cooperative, comfortable, alert and awake Nutritional Appearance: overweight Orientation/consciousness: patient oriented x3 Resp: Effort & Inspection: normal respiratory effort and able to speak in complete sentences GI: Inspection: No distended Palpation (GI): Soft to palpation and nontender Neuro: General: patient oriented x3 and CN's II-XI intact bilaterally Extrem: General: Yes no pedal edema DS: Data Data Completed and Pending Labs on day of discharge: Laboratory Results - last 24 hr 06/10/22 06/10/22 06/11/22 16:19 20:01 07:25 POC Glucose 194 H 245 H 219 H 06/11/22 06/11/22 11:43 15:40 POC Glucose 240 H 262 H Preliminary micro results at discharge 06/09/22 10:47 Blood Culture - Preliminary Blood - Venous No growth after 48 hours. 06/09/22 10:47 Blood Culture - Preliminary Blood - Venous No growth after 48 hours. 06/09/22 Unknown Urine Culture - Preliminary Urine clean catch - Urine sy top Gram negative alejandra Discharge Plan Discharge Anticipated Discharge Date/Time: 06/11/22 18:00 Patient Disposition: Home, Self-Care Discharge Diagnosis: ESBL e.coli UTI/bacteremia Referrals: Physician,Unknown J [Primary Care Provider] - 1 Week Discharge Medications: Continued aspirin 81 mg Tablet,Delayed Release (Dr/Ec) 81 mg PO DAILY lisinopril 2.5 mg Tablet 2.5 mg PO DAILY metformin 500 mg Tablet Extended Release 24 Hr 1,000 mg PO DAILY ibuprofen 600 mg tablet 600 mg PO TID PRN (Reason: fever or pain) Qty: 20 0RF insulin lispro [Humalog U-100 Insulin] 100 unit/mL solution See Rx Instructions .ROUTE .COMPLEX Rx Instructions: 0 - 150 ;up to 150 units via insulin pump daily albuterol sulfate 90 mcg/actuation HFA aerosol inhaler 2 puff INHALATION Q6H PRN (Reason: Shortness Of Breath Or Wheezing) fluticasone propionate [Flonase Allergy Relief] 50 mcg/actuation [place],Suspension 1 spray INTRANASAL DAILY PRN (Reason: Allergy Symptoms) Rx Instructions: administer into each nostril levocetirizine 5 mg Tablet 5 mg PO DAILY PRN (Reason: Allergy Symptoms) Arnuity Ellipta 100 mcg/actuation blister with device 1 puff inhalation DAILY insulin glargine-yfgn [Semglee(insulin glarg-yfgn)Pen] 100 unit/mL (3 mL) insulin pen 40 - 70 unit subcut DAILY Mounjaro 5 mg/0.5 mL pen injector 5 mg subcut MARTELL@0900 Discontinued levofloxacin 500 mg tablet 500 mg PO DAILY Qty: 6 0RF Rx Instructions: 06/09/22 - 5th day of Tx, 06/10/22 - 6th and final day of Tx nitrofurantoin macrocrystal 50 mg capsule 1 cap PO DAILY Discharge Orders: Discharge Order (Routine); Ordered 06/11/22 Ordered By: Dorinda Hernandez Activity on Discharge: As tolerated Stand Alone Forms: Patient Portal Discharge page Care Plan Goals: resolution of infection Health Concerns: you have bacteria growing in your blood secondary to urinary tract infection. The bacteria growing is resistant to oral antibiotics, you will need to continue IV antibiotics upon discharge. You have had a midline placed for administration of IV ertapenem and teaching for administration of antibiotics. Plan of Treatment: Complete entire course of antibiotics as prescribed call to schedule follow-up appointment with Urology Assessment: see discharge summary Discharge Date/Time: 06/11/22 18:04
[2022-06-11] MEDS: Ertapenem Sodium 1 GM in 0.9 % Sodium Chloride 50 ML IV (16:31)
[2022-06-11] MEDS: Heparin Sodium,Porcine Flush 50 UNITS, 0.9 % Sodium Chloride Flush 5 ML IVFLUSH (16:46)
== END 2022-06-11 18:04 | disposition home or self-care (01) | DRG 463 ==
LOC: HO.ED 13:40 → HO.EDOVER 15:00 → HO.S3 18:53
PROVIDERS: Physician Assistant; Admitting Provider Nurse Practitioner Acute Care; Emergency Provider Student in an Organized Health Care Education/Training Program; Visit Provider Physician Assistant Medical
DX: N39.0 Urinary tract infection, site not specified (principal); R78.81 Bacteremia; E11.65 Type 2 diabetes mellitus with hyperglycemia; I10 Essential (primary) hypertension; B96.20 Unspecified Escherichia coli [E. coli] as the cause of diseases classified elsewhere; E66.01 Morbid (severe) obesity due to excess calories; Z16.12 Extended spectrum beta lactamase (ESBL) resistance; Z20.822 Contact with and (suspected) exposure to COVID-19; Z79.51 Long term (current) use of inhaled steroids; Z68.41 Body mass index [BMI] 40.0-44.9, adult; Z79.4 Long term (current) use of insulin; Z79.82 Long term (current) use of aspirin; Z79.84 Long term (current) use of oral hypoglycemic drugs; Z79.899 Other long term (current) drug therapy
CPT/HCPCS: 36410; 36415; 80048; 80076; 81001; 81003; 82947; 83605; 83735; 85025; 87040; 87086; 87088; 87186; 87502; 87635; 99218; 99285; J1335; J1642; J2185

== ENCOUNTER 2022-06-18 11:22 | Outpatient (REF) | payer OTHER, SELFPAY ==
[2022-06-18 12:31] LABS: Anion Gap 12 (12-20); Blood Urea Nitrogen 14 mg/dL (9-16); Carbon Dioxide 26 mmol/L (22-29); Chloride 105 mmol/L (96-108); Estimated Glomerular Filt Rate > 60; Glucose Random 131 mg/dL (60-115); Potassium 4.5 mmol/L (3.3-5.1); Sodium 138 mmol/L (135-145)
== END 2022-06-18 11:23 | disposition home or self-care (01) ==
LOC: HO.LNP 11:22
PROVIDERS: Visit Provider Internal Medicine
DX: R78.81 Bacteremia (principal)
CPT/HCPCS: 80048

== ENCOUNTER → 2022-06-22 13:06 | Outpatient (BNVA) | payer OTHER, SELFPAY | PROVIDERS: Visit Provider Internal Medicine | DX: R78.81 Bacteremia (principal) ==

== ENCOUNTER 2022-09-01 20:38 | Emergency (ER) | payer OTHER, SELFPAY ==
[2022-09-01 20:46] VITALS: BP 144/88; PULSE 94; RESP 20; TEMP 36.7; O2SAT 98; BMI 44.3
--- NOTE | 2022-09-01 20:46 | ED.BACK ---
HPI - Back Pain/Injury General Chief Complaint: Back Pain/Injury <CATHLEEN Bradley - Last Filed: 09/01/22 20:49> Stated Complaint: back pain <CATHLEEN Bradley - Last Filed: 09/01/22 20:49> Time Seen by Provider: 09/02/22 00:07 <CATHLEEN Bradley - Last Filed: 09/01/22 20:49> Source: patient <Evgeny Duron MD - Last Filed: 09/02/22 00:30> Mode of arrival: ambulatory <Evgeny Duron MD - Last Filed: 09/02/22 00:30> Limitations: no limitations <Evgeny Duron MD - Last Filed: 09/02/22 00:30> History of Present Illness HPI Narrative: 42-year-old female who presents emergency department for evaluation of left lower back pain with pain radiating down her left leg to her toes. She states the pain started on (7 days prior to evaluation). She states she has had similar pain in the past secondary to pain she your. She states that in May of 2022 she had spinal injections at [facility] for similar problem. Patient states she has been taking ibuprofen, naproxen, Tylenol and Flexeril with no relief for pain. She states the pain is currently 10/10. She denied any numbness or weakness of her left lower extremity. She denied loss of bowel or bladder control. She denied fever, chills, rhinorrhea, sore throat, frequency, urgency or dysuria. <Evgeny Duron MD - Last Filed: 09/02/22 00:30> Related Data Home Medications: Home Medications Medication Instructions Recorded Confirmed aspirin 81 mg tablet,delayed 81 mg PO DAILY 09/14/21 06/09/22 release lisinopril 2.5 mg tablet 2.5 mg PO DAILY 09/14/21 06/09/22 metformin 500 mg tablet,extended 1,000 mg PO DAILY 09/14/21 06/09/22 release 24 hr albuterol sulfate 90 mcg/actuation 2 puff inhalation Q6H PRN 06/09/22 06/09/22 aerosol inhaler Shortness Of Breath Or Wheezing fluticasone furoate 100 1 puff inhalation DAILY 06/09/22 06/09/22 mcg/actuation blister powder for inhalation (Arnuity Ellipta) fluticasone propionate 50 1 spray intranasal DAILY PRN 06/09/22 06/09/22 mcg/actuation nasal Allergy Symptoms spray,suspension (Flonase Allergy Relief) insulin glargine-yfgn 100 unit/mL 40 - 70 unit subcut DAILY 06/09/22 06/09/22 (3 mL) subcutaneous pen (Semglee (insulin glargine-yfgn) Pen) insulin lispro 100 unit/mL See Rx Instructions .Route .COMPLEX 06/09/22 06/09/22 subcutaneous solution (Humalog U-100 Insulin) levocetirizine 5 mg tablet 5 mg PO DAILY PRN Allergy Symptoms 06/09/22 06/09/22 tirzepatide 5 mg/0.5 mL 5 mg subcut MARTELL@0900 06/09/22 06/09/22 subcutaneous pen injector (Sharon) Previous Rx's Medication Instructions Recorded ibuprofen 600 mg tablet 600 mg PO TID PRN fever or pain 06/04/22 #20 tabs fosfomycin tromethamine 3 gram 1 packet PO Q OTHER DAY 3 doses #1 06/22/22 oral packet ea methenamine hippurate 1 gram tablet 1 g PO BID 30 days #60 tabs 06/22/22 cyclobenzaprine 10 mg tablet 10 mg PO TID PRN muscle pain or 09/02/22 spasm #20 tabs morphine 15 mg immediate release 15 mg PO Q4-6H PRN pain #14 tabs 09/02/22 tablet prednisone 20 mg tablet 60 mg PO DAILY 7 days #21 tabs 09/02/22 <CATHLEEN Bradley - Last Filed: 09/01/22 20:49> Allergies/Adverse Reactions: Allergies Allergy/AdvReac Type Severity Reaction Status Date / Time some adhesives Allergy Unknown rash Uncoded 11/20/21 21:01 <CATHLEEN Bradley - Last Filed: 09/01/22 20:49> Review of Systems Review of Systems: Yes all other systems are reviewed and are negative <Evgeny Duron MD - Last Filed: 09/02/22 00:30> [facility] Past Medical History [facility] Narrative: Social history she denies tobacco, alcohol and drug use. <Evgeny Duron MD - Last Filed: 09/02/22 00:30> Medical History: Medical History Asthma Diabetes mellitus type 2 in obese Hypertension Obesity Pyelonephritis <CATHLEEN Bradley - Last Filed: 09/01/22 20:49> Surgical History: Surgical History Previous section <CATHLEEN Bradley - Last Filed: 09/01/22 20:49> Family History Family History: Family History Mother Myocardial infarction <CATHLEEN Bradley - Last Filed: 09/01/22 20:49> Social History Social History: Social History Household Members: Spouse Housing: House Do you presently have visiting nurse or other home services: No Alcohol intake: never Patient Tobacco Use Status: Never used Tobacco Advance Directives: Yes Advance Directives on File: Yes Advance Directives Date on File: 09/16/21 service: No Current occupational status: employed <CATHLEEN Bradley - Last Filed: 09/01/22 20:49> Physical Exam Vital Signs: Vital Signs: Last Vital Signs Temp 98.1 F 09/01/22 20:46 Pulse 94 09/01/22 20:46 Resp 20 09/01/22 20:46 BP 144/88 H 09/01/22 20:46 Pulse Ox 98 09/01/22 20:46 O2 Del Method 09/01/22 20:46 BMI result Body Mass Index 44.3 <CATHLEEN Bradley - Last Filed: 09/01/22 20:49> Vital Signs: Last Vital Signs Temp 98.1 F 09/01/22 20:46 Pulse 94 09/01/22 20:46 Resp 20 09/01/22 20:46 BP 144/88 H 09/01/22 20:46 Pulse Ox 98 09/01/22 20:46 O2 Del Method 09/01/22 20:46 BMI result Body Mass Index 44.3 <Evgeny Duron MD - Last Filed: 09/02/22 00:30> Const: Other: Awake, alert, female patient, pleasant, cooperative, she does appear to be in some distress has difficulty moving on the stretcher secondary to her left lower back pain, she has an elevated BMI of 44.4 <Evgeny Duron MD - Last Filed: 09/02/22 00:30> HEENT: Head: Yes normal to inspection, Yes normocephalic and Yes atraumatic <Evgeny Duron MD - Last Filed: 09/02/22 00:30> Ears: external ears normal <MD Adele Tabares Last Filed: 09/02/22 00:30> General nose exam: Normal external nose present <MD Adele Tabares Last Filed: 09/02/22 00:30> Face and sinus: Yes normal facial exam <MD Adele Tabares Last Filed: 09/02/22 00:30> Mouth: Normal oral and palatal mucosa present <MD Adele Tabares Last Filed: 09/02/22 00:30> Throat: Yes posterior oropharynx normal <MD Adele Tabares Last Filed: 09/02/22 00:30> Eyes: General: appearance normal, both eyes and all related structures <MD Adele Tabares Last Filed: 09/02/22 00:30> Pupils: Equal, round and reactive pupils present <MD Adele Tabares Last Filed: 09/02/22 00:30> Neck: Neck: Yes normal visual inspection, Yes no lymphadenopathy, Yes trachea midline and Yes supple <Evgeny Duron MD - Last Filed: 09/02/22 00:30> Chest: Chest palpation & inspection: normal inspection of the chest and normal palpation of entire chest wall <MD Adele Tabares Last Filed: 09/02/22 00:30> Resp: Effort & Inspection: normal respiratory effort and able to speak in complete sentences <Evgeny Duron MD - Last Filed: 09/02/22 00:30> Auscultation: clear to auscultation bilaterally <Evgeny Duron MD - Last Filed: 09/02/22 00:30> Cardio: Rate: regular rate <Evgeny Duron MD - Last Filed: 09/02/22 00:30> Rhythm: regular rhythm <Evgeny Duron MD - Last Filed: 09/02/22 00:30> Heart sounds: S1 normal heart sound present, S2 normal heart sound present and no murmurs <Evgeny Duron MD - Last Filed: 09/02/22 00:30> GI: Inspection: Yes normal to inspection <Evgeny Duron MD - Last Filed: 09/02/22 00:30> Palpation (GI): Soft to palpation, nontender and no guarding <Evgeny Duron MD - Last Filed: 09/02/22 00:30> Auscultation: normal bowel sounds <Evgeny Duron MD - Last Filed: 09/02/22 00:30> Back/Spine/Pelvis: Other: Patient has negative straight leg raises bilaterally, she has no tenderness palpation over her vertebrae, she does have tenderness palpation over the paraspinal muscles in lumbar sacral area on the left with spasm of these muscles. <Evgeny Duron MD - Last Filed: 09/02/22 00:30> Skin: General skin exam: no rashes or lesions noted <Evgeny Duron MD - Last Filed: 09/02/22 00:30> Neuro: Cranial nerves: Yes CN's II-XII intact bilaterally and Yes Equal, round and reactive pupils present <Evgeny Duron MD - Last Filed: 09/02/22 00:30> Cognition (Neuro): normal cognition <Evgeny Duron MD - Last Filed: 09/02/22 00:30> Motor exam (neuro): 5/5 motor strength present throughout <Evgeny Duron MD - Last Filed: 09/02/22 00:30> Extrem: General: Yes normal to inspection <Evgeny Duron MD - Last Filed: 09/02/22 00:30> Psych: Appearance: grossly normal <Evgeny Duron MD - Last Filed: 09/02/22 00:30> Speech and movement: Normal speech and movement present <Evgeny Duron MD - Last Filed: 09/02/22 00:30> Affect: normal affect <Evgeny Duron MD - Last Filed: 09/02/22 00:30> Attitude: cooperative <Evgeny Duron MD - Last Filed: 09/02/22 00:30> Course Course Course Narrative: This is an RME: Additional HPI, ROS, PE not included below will be deferred to primary provider. 42-year-old female presents atraumatic left-sided lumbar back pain that radiates down left lower extremity described as constant nature, worse with movement better rest. Has intermittent numbness and tingling to left lower extremity. Tells me she has a history of pinched nerves in her back. Denies saddle paresthesias, urinary/bowel incontinence/retention, weakness, history of IV drug abuse. Took naproxen at 12 pm Physical exam pain with palpation of left lumbar paraspinous muscles and to left buttocks. No midline tenderness. No focal neuro deficits. Ambulating with steady gait normal coordination. Vital signs are stable. Plan medication re-evaluation <CATHLEEN Bradley - Last Filed: 09/01/22 20:49> Medications Administered Discontinued Medications Generic Name Dose Route Start Last Admin Trade Name Freq PRN Reason Stop Dose Admin Ketorolac Tromethamine 30 mg 09/01/22 20:47 09/01/22 22:19 Ketorolac Tromethamine 15 Mg/Ml Vial IM 09/01/22 20:48 30 mg ONCE ONE Administration Lidocaine 1 patch 09/01/22 20:47 09/01/22 22:18 Lidocaine 4 % Patch Adh..Patch TRANSDERMA 09/01/22 20:48 1 patch ONCE ONE Administration Protocol <CATHLEEN Bradley - Last Filed: 09/01/22 20:49> Medications Administered Discontinued Medications Generic Name Dose Route Start Last Admin Trade Name Freq PRN Reason Stop Dose Admin Ketorolac Tromethamine 30 mg 09/01/22 20:47 09/01/22 22:19 Ketorolac Tromethamine 15 Mg/Ml Vial IM 09/01/22 20:48 30 mg ONCE ONE Administration Lidocaine 1 patch 09/01/22 20:47 09/01/22 22:18 Lidocaine 4 % Patch Adh..Patch TRANSDERMA 09/01/22 20:48 1 patch ONCE ONE Administration Protocol <Evgeny Duron MD - Last Filed: 09/02/22 00:30> Medical Decision Making Medical Decision Making MDM Narrative: 42-year-old female who presents emergency department for evaluation of left lower back pain with pain radiating down her left leg to her toes, she has had similar problems in the past secondary to ?pinched nerves ?and has had spinal injections by [facility] in May of 2022. Patient's physical examination did reveal lumbar sacral paraspinal muscle tenderness on the left with normal neurologic exam. The patient's presentation is consistent with lumbar radiculopathy and I did discuss this with her. She was started on prednisone 60 mg once a day for 7 days, given her 1st dose here in the emergency department. She was advised to take Tylenol 1000 mg every 6 hours and given a dose here in the emergency department as well. Patient was also prescribed Flexeril and morphine for pain not relieved by the other medications. Patient was given printed and verbal instructions and discharged home. She was given a work note as well. RME was reviewed, provider triage treated the patient with Toradol 30 mg IM and lidocaine 4% patch. <Evgeny Duron MD - Last Filed: 09/02/22 00:30> Differential Diagnosis Differential diagnosis includes but is not limited to lumbar sprain, disc disease, degenerative joint disease <Evgeny Duron MD - Last Filed: 09/02/22 00:30> Discharge Plan Discharge Clinical Impression: Left lumbar pain, Acute left lumbar radiculopathy <CATHLEEN Bradley - Last Filed: 09/01/22 20:49> Patient Disposition: Home, Self-Care <CATHLEEN Bradley - Last Filed: 09/01/22 20:49> Instructions: Lumbar Radiculopathy (ED) <CATHLEEN Bradley - Last Filed: 09/01/22 20:49> Additional Instructions: Take prednisone 20 mg pills, 3 pills once a day for 7 days. While you are taking prednisone, do not take any NSAIDs (Motrin, Advil, ibuprofen, Aleve, naproxen). Take Tylenol (acetaminophen) 2 pills every 6 hours as needed for pain. For pain not relieved by prednisone or Tylenol take morphine 15 mg pills, 1 pill every 4 hours as needed for pain. This medication will make you sleepy, do not drive or work while taking this medication. Morphine is a narcotic medication and can be addicting. If you are concerned about addiction you can ask the pharmacist for less pills or do not get this prescription filled. Take Flexeril (cyclobenzaprine) 10 mg pills, 1 pill every 6-8 hours as needed for pain or spasm. This medication will make you sleepy. Do not drive or work while taking this medication. Follow-up with your doctor in 2 days. Please return to the emergency department if your symptoms get worse or if you develop any symptoms that are concerning to you. <CATHLEEN Bradley - Last Filed: 09/01/22 20:49> Prescriptions: New cyclobenzaprine 10 mg tablet 10 mg PO TID PRN (Reason: muscle pain or spasm) Qty: 20 0RF prednisone 20 mg tablet 60 mg PO DAILY 7 Days Qty: 21 0RF morphine 15 mg tablet 15 mg PO Q4-6H PRN (Reason: pain) Qty: 14 0RF Rx Instructions: Patient may request partial fill; Partial Fill upon patient request. No Action aspirin 81 mg Tablet,Delayed Release (Dr/Ec) 81 mg PO DAILY lisinopril 2.5 mg Tablet 2.5 mg PO DAILY metformin 500 mg Tablet Extended Release 24 Hr 1,000 mg PO DAILY ibuprofen 600 mg tablet 600 mg PO TID PRN (Reason: fever or pain) Qty: 20 0RF insulin lispro [Humalog U-100 Insulin] 100 unit/mL solution See Rx Instructions .ROUTE .COMPLEX Rx Instructions: 0 - 150 ;up to 150 units via insulin pump daily albuterol sulfate 90 mcg/actuation HFA aerosol inhaler 2 puff INHALATION Q6H PRN (Reason: Shortness Of Breath Or Wheezing) fluticasone propionate [Flonase Allergy Relief] 50 mcg/actuation [place],Suspension 1 spray INTRANASAL DAILY PRN (Reason: Allergy Symptoms) Rx Instructions: administer into each nostril levocetirizine 5 mg Tablet 5 mg PO DAILY PRN (Reason: Allergy Symptoms) Arnuity Ellipta 100 mcg/actuation blister with device 1 puff inhalation DAILY insulin glargine-yfgn [Semglee(insulin glarg-yfgn)Pen] 100 unit/mL (3 mL) insulin pen 40 - 70 unit subcut DAILY Mounjaro 5 mg/0.5 mL pen injector 5 mg subcut MARTELL@0900 fosfomycin tromethamine 3 gram packet 1 packet PO Q OTHER DAY Qty: 1 0RF methenamine hippurate 1 gram tablet 1 g PO BID 30 Days Qty: 60 11RF <CATHLEEN Bradley - Last Filed: 09/01/22 20:49> Stand Alone Forms: Work/School Release <CATHLEEN Bradley - Last Filed: 09/01/22 20:49>
[2022-09-01] MEDS: Lidocaine 4 % Patch ADH..PATCH 1 PATCH TRANSDERMA (22:18)
[2022-09-01] MEDS: Ketorolac Tromethamine 15 MG/ML VIAL 30 MG IM (22:19)
[2022-09-02] MEDS: predniSONE 20 MG TABLET 60 MG PO (00:35)
[2022-09-02] MEDS: Acetaminophen 325 MG TABLET 975 MG PO (00:36)
== END 2022-09-02 00:39 | disposition home or self-care (01) ==
PROVIDERS: Emergency Provider Emergency Medicine Emergency Medical Services; PCP Nurse Practitioner Family
DX: M54.16 Radiculopathy, lumbar region (principal); M54.50 Low back pain, unspecified; M54.2 Cervicalgia; R51.9 Headache, unspecified
CPT/HCPCS: 96372; 99283; 99284; J1885

== ENCOUNTER 2024-02-26 16:39 | Emergency (ER) | payer OTHER, SELFPAY ==
--- NOTE | ~2024-02-26 | XR_ITS ---
EXAMINATION: XR WRIST, LEFT CLINICAL INFORMATION: Pain COMPARISON: None available. TECHNIQUE: Four views of the left wrist. FINDINGS: No acute fracture or dislocation. Joint spaces are maintained. Atherosclerotic vascular calcification. No soft tissue swelling. XR/XR wrist LT w scaphoid IMPRESSION: * No acute osseous abnormality. Electronically signed by: Desirae Russo MD 02/26/2024 05:50 PM EDT RP
--- NOTE | 2024-02-26 16:44 | ED_ITS ---
HPI - Extremity Injury (Upper) General Chief Complaint: Extremity Injury, Upper Stated Complaint: left wrist pain,swollen Time Seen by Provider: 02/26/24 16:48 Source: patient Mode of arrival: ambulatory Limitations: no limitations History of Present Illness HPI narrative: Patient is a 43-year-old right-hand dominant who presents emergency department for evaluation of left radial wrist pain and swelling. Onset November 2023 diagnosed with tendonitis at [facility], states no imaging performed was taking ibuprofen and wearing a brace, states her pain has continued to worsen. Swelling was worse today. Denies injury to it. Denies fevers, chills, numbness or tingling. Able to move digits. Denies any known precipitating injury Related Data Home Medications ?Medication ?Instructions ?Recorded ?Confirmed aspirin 81 mg tablet,delayed 81 mg PO DAILY 09/14/21 06/09/22 release lisinopril 2.5 mg tablet 2.5 mg PO DAILY 09/14/21 06/09/22 metformin 500 mg tablet,extended 1,000 mg PO DAILY 09/14/21 06/09/22 release 24 hr albuterol sulfate 90 mcg/actuation 2 puff inhalation Q6H PRN 06/09/22 06/09/22 aerosol inhaler Shortness Of Breath Or Wheezing fluticasone furoate 100 1 puff inhalation DAILY 06/09/22 06/09/22 mcg/actuation blister powder for inhalation (Arnuity Ellipta) fluticasone propionate 50 1 spray intranasal DAILY PRN 06/09/22 06/09/22 mcg/actuation nasal Allergy Symptoms spray,suspension (Flonase Allergy Relief) insulin glargine-yfgn 100 unit/mL 40 - 70 unit subcut DAILY 06/09/22 06/09/22 (3 mL) subcutaneous pen (Semglee (insulin glargine-yfgn) Pen) insulin lispro 100 unit/mL See Rx Instructions .Route .COMPLEX 06/09/22 06/09/22 subcutaneous solution (Humalog U-100 Insulin) levocetirizine 5 mg tablet 5 mg PO DAILY PRN Allergy Symptoms 06/09/22 06/09/22 tirzepatide 5 mg/0.5 mL 5 mg subcut MARTELL@0900 06/09/22 06/09/22 subcutaneous pen injector (Sharon) Previous Rx's ?Medication ?Instructions ?Recorded ibuprofen 600 mg tablet 600 mg PO TID PRN fever or pain 06/04/22 #20 tabs fosfomycin tromethamine 3 gram 1 packet PO Q OTHER DAY 3 doses #1 06/22/22 oral packet ea methenamine hippurate 1 gram tablet 1 g PO BID 30 days #60 tabs 06/22/22 cyclobenzaprine 10 mg tablet 10 mg PO TID PRN muscle pain or 09/02/22 spasm #20 tabs morphine 15 mg immediate release 15 mg PO Q4-6H PRN pain #14 tabs 09/02/22 tablet prednisone 20 mg tablet 60 mg (3 x 20 mg) PO DAILY 7 days 09/02/22 #21 tabs Allergies Allergy/AdvReac Type Severity Reaction Status Date / Time some adhesives Allergy Unknown rash Uncoded 02/26/24 16:49 Review of Systems Review of Systems: Yes all other systems are reviewed and are negative PMFSH Past Medical History Attestation statement: The following information was validated with the patient. Source: old records reviewed Medical History Pyelonephritis Diabetes mellitus type 2 in obese Obesity Hypertension Asthma Surgical History Previous section Family History Family History Mother Myocardial infarction Social History Social History Household Members: Spouse Housing: House Do you presently have visiting nurse or other home services: No Alcohol intake: never Patient Tobacco Use Status: Never used Tobacco Advance Directives: Yes Advance Directives on File: Yes Advance Directives Date on File: 09/16/21 Do you have a plan to hurt others: No Plan service: No Current occupational status: employed Physical Exam Vital Signs: Vital Signs: Last Vital Signs Temp 97.4 F 02/26/24 18:17 Pulse 94 02/26/24 18:17 Resp 18 02/26/24 18:17 BP 90/52 L 02/26/24 18:17 Pulse Ox 99 02/26/24 18:17 BMI result Body Mass Index 43.5 Course Course Course Narrative: Patient is a 43-year-old right-hand dominant who presents emergency department for evaluation of left radial wrist pain and swelling. Onset November 2023 diagnosed with tendonitis at [facility], states no imaging performed was taking ibuprofen and wearing a brace, states her pain has continued to worsen. Swelling was worse today. Denies injury to it. Denies fevers, chills, numbness or tingling. Able to move digits. Denies any known precipitating injury Medical Decision Making Medical Decision Making MDM Narrative: Patient is a 43-year-old female with past medical history of Type 2 diabetes, hypertension, asthma, obesity presenting for evaluation of atraumatic left radial wrist pain localized swelling as per HPI. No erythema or warmth. Mild decreased AROM to the wrist, suspect unlikely septic arthritis. 2+ radial pulse, neurovascularly intact distally. No tenderness over the anatomical. History and physical examination favors tendonitis, negative Tinel sign, unable to tolerate positioning for Phalen sign testing, possible carpal tunnel syndrome. Pain is primarily located over the distal radius exacerbated with range of motion to the wrist. XR is without acute osseous abnormality. Discussed conservative treatment, application of Fritz bandage and outpatient follow-up with physical therapy, advised they may consider a course of physical therapy or possible glucocorticoid injection. Differential Diagnosis Differential Diagnoses: The differential diagnosis associated with the presentation includes (See narrative above) Independent Interpretation I performed an independent interpretation of an: Plain X-Ray (No acute fracture dislocation) Radiology Impression Discussion of test interpretation with radiology: I have reviewed the radiologi st's reading. Radiologist Impression: XR/XR wrist LT w scaphoid IMPRESSION: * No acute osseous abnormality. External Record Review External record reviewed: Outpatient record Prescription Management I considered prescription management with: Pain Medication Procedures Orthopedic Splinting/Casting Injury #1: Side: left Upper Extremity Injury Location: wrist Other Orthopedic Equipment: other (Fritz bandage) Discharge Plan Discharge Clinical Impression: Left wrist tendonitis Patient Disposition: Home, Self-Care Instructions: R.I.C.E. Treatment (ED) Additional Instructions: You may trial use of an Fritz bandage to the wrist alternatively from the rigid splint that you previously received as you stated this major pain worse. You can take ibuprofen 200 mg, 3 tablets (600mg) every 6-8 hours as needed for pain, in addition to Tylenol 500 mg, 2 tablets (1,000mg) every 4-6 hours as needed for pain, but not to exceed 3 doses daily (3,000mg).? Follow-up with your orthopedic provider, they may consider alternative treatment modalities for you. X-ray today did not show any acute bony abnormality. Prescriptions: No Action aspirin 81 mg Tablet,Delayed Release (Dr/Ec) 81 mg PO DAILY lisinopril 2.5 mg Tablet 2.5 mg PO DAILY metformin 500 mg Tablet Extended Release 24 Hr 1,000 mg PO DAILY ibuprofen 600 mg tablet 600 mg PO TID PRN (Reason: fever or pain) Qty: 20 0RF insulin lispro [Humalog U-100 Insulin] 100 unit/mL solution See Rx Instructions .ROUTE .COMPLEX Rx Instructions: 0 - 150 ;up to 150 units via insulin pump daily albuterol sulfate 90 mcg/actuation HFA aerosol inhaler 2 puff INHALATION Q6H PRN (Reason: Shortness Of Breath Or Wheezing) fluticasone propionate [Flonase Allergy Relief] 50 mcg/actuation [place],Suspension 1 spray INTRANASAL DAILY PRN (Reason: Allergy Symptoms) Rx Instructions: administer into each nostril levocetirizine 5 mg Tablet 5 mg PO DAILY PRN (Reason: Allergy Symptoms) Arnuity Ellipta 100 mcg/actuation blister with device 1 puff inhalation DAILY insulin glargine-yfgn [Semglee(insulin glarg-yfgn)Pen] 100 unit/mL (3 mL) insulin pen 40 - 70 unit subcut DAILY Mounjaro 5 mg/0.5 mL pen injector 5 mg subcut MARTELL@0900 cyclobenzaprine 10 mg tablet 10 mg PO TID PRN (Reason: muscle pain or spasm) Qty: 20 0RF prednisone 20 mg tablet 60 mg PO DAILY 7 Days Qty: 21 0RF morphine 15 mg tablet 15 mg PO Q4-6H PRN (Reason: pain) Qty: 14 0RF Rx Instructions: Patient may request partial fill; Partial Fill upon patient request. fosfomycin tromethamine 3 gram packet 1 packet PO Q OTHER DAY Qty: 1 0RF methenamine hippurate 1 gram tablet 1 g PO BID 30 Days Qty: 60 11RF Referrals: Jen Childers [employer] [Primary Care Provider] - Interventions: ED Discharge Assessment Last Done: 02/26/24 18:17 Discharge Date/Time: 02/26/24 18:20 Print Language: Greek
[2024-02-26 16:45] VITALS: BP 90/52; PULSE 94; RESP 18; TEMP 36.3; O2SAT 99; BMI 43.5
[2024-02-26 18:17] VITALS: BP 90/52; PULSE 94; RESP 18; TEMP 36.3; O2SAT 99
== END 2024-02-26 18:20 | disposition home or self-care (01) ==
PROVIDERS: Emergency Provider Emergency Medicine Emergency Medical Services; PCP Nurse Practitioner Family
DX: M77.8 Other enthesopathies, not elsewhere classified (principal); M25.532 Pain in left wrist; E11.9 Type 2 diabetes mellitus without complications; I10 Essential (primary) hypertension; J45.909 Unspecified asthma, uncomplicated; Z79.82 Long term (current) use of aspirin; Z79.4 Long term (current) use of insulin; Z79.899 Other long term (current) drug therapy
CPT/HCPCS: 73110; 99282; 99283

== ENCOUNTER 2024-06-03 00:41 | Emergency (ER) | payer OTHER, SELFPAY ==
[2024-06-03 00:57] VITALS: BP 147/78; PULSE 96; RESP 16; TEMP 36.9; O2SAT 97; BMI 44.6
[2024-06-03 03:55] VITALS: BP 112/53; PULSE 93; RESP 18; TEMP 36.9; O2SAT 97
[2024-06-03 06:01] VITALS: BP 107/64; PULSE 91; RESP 16; TEMP 36.7; O2SAT 97
--- NOTE | 2024-06-03 06:11 | ED_ITS ---
HPI - Wound/Laceration General Chief Complaint: Wound/Laceration Stated Complaint: surgery incision reopening Time Seen by Provider: 06/03/24 05:45 Source: patient, family and old records reviewed Mode of arrival: ambulatory Limitations: no limitations History of Present Illness ED Provider: AGATA GLASGOW narrative: 43 yo female with PMH of pyelonephritis, IDDM, HTN who is s/p tendon release removal of her L wrist on 05/23 by ROSALIO. She has done well and the cast was removed yesterday. At night her and her thought the wound was opening up so she came here. She has no other complaints such as drainage, fevers, redness. They were concerned as she is a diabetic. Onset (ago): day(s) (before bed yesterday) Extremity Location: left: wrist Place: home Patient tetanus UTD: Yes Context: other Associated symptoms: none Treatments prior to arrival: bandage Related Data Home Medications ?Medication ?Instructions ?Recorded ?Confirmed aspirin 81 mg tablet,delayed 81 mg PO DAILY 09/14/21 06/09/22 release lisinopril 2.5 mg tablet 2.5 mg PO DAILY 09/14/21 06/09/22 metformin 500 mg tablet,extended 1,000 mg PO DAILY 09/14/21 06/09/22 release 24 hr albuterol sulfate 90 mcg/actuation 2 puff inhalation Q6H PRN 06/09/22 06/09/22 aerosol inhaler Shortness Of Breath Or Wheezing fluticasone furoate 100 1 puff inhalation DAILY 06/09/22 06/09/22 mcg/actuation blister powder for inhalation (Arnuity Ellipta) fluticasone propionate 50 1 spray intranasal DAILY PRN 06/09/22 06/09/22 mcg/actuation nasal Allergy Symptoms spray,suspension (Flonase Allergy Relief) insulin glargine-yfgn 100 unit/mL 40 - 70 unit subcut DAILY 06/09/22 06/09/22 (3 mL) subcutaneous pen (Semglee (insulin glargine-yfgn) Pen) insulin lispro 100 unit/mL See Rx Instructions .Route .COMPLEX 06/09/22 06/09/22 subcutaneous solution (Humalog U-100 Insulin) levocetirizine 5 mg tablet 5 mg PO DAILY PRN Allergy Symptoms 06/09/22 06/09/22 tirzepatide 5 mg/0.5 mL 5 mg subcut MARTELL@0900 06/09/22 06/09/22 subcutaneous pen injector (Sharon) Previous Rx's ?Medication ?Instructions ?Recorded ibuprofen 600 mg tablet 600 mg PO TID PRN fever or pain 06/04/22 #20 tabs fosfomycin tromethamine 3 gram 1 packet PO Q OTHER DAY 3 doses #1 06/22/22 oral packet ea methenamine hippurate 1 gram tablet 1 g PO BID 30 days #60 tabs 06/22/22 cyclobenzaprine 10 mg tablet 10 mg PO TID PRN muscle pain or 09/02/22 spasm #20 tabs morphine 15 mg immediate release 15 mg PO Q4-6H PRN pain #14 tabs 09/02/22 tablet prednisone 20 mg tablet 60 mg (3 x 20 mg) PO DAILY 7 days 09/02/22 #21 tabs Allergies Allergy/AdvReac Type Severity Reaction Status Date / Time some adhesives Allergy Unknown rash Uncoded 06/03/24 00:59 Review of Systems Review of Systems: Constitutional : No Fever, No Chills, Cardiovascular : No Chest Pain, No SOB Respiratory : No Dyspnea Gastrointestinal : No abdominal pain Musculoskeletal : No Joint Swelling Skin : No rash, pos healing surg wound Neuro : No Weakness, No Numbness PMFSH Past Medical History Attestation statement: The following information was validated with the patient. Source: old records reviewed Medical History Pyelonephritis Diabetes mellitus type 2 in obese Obesity Hypertension Asthma Surgical History Previous section Family History Family History Mother Myocardial infarction Social History Social History Household Members: Spouse Housing: House Do you presently have visiting nurse or other home services: No Alcohol intake: never Patient Tobacco Use Status: Never used Tobacco Smoked in Last 30 Days: No Use of substances other than those prescribed or required for medical reasons: No Advance Directives: Yes Advance Directives on File: Yes Advance Directives Date on File: 09/16/21 Do you have a plan to hurt others: No Plan Patient : No service: No Current occupational status: employed Physical Exam Vital Signs: Vital Signs: Last Vital Signs Temp 98.0 F 06/03/24 06:01 Pulse 91 06/03/24 06:01 Resp 16 06/03/24 06:01 BP 107/64 06/03/24 06:01 Pulse Ox 97 06/03/24 06:01 O2 Del Method Room Air 06/03/24 06:01 BMI result Body Mass Index 44.6 Appearance: Alert. Oriented X3. No acute distress. Eyes: Pupils equal, round and reactive to light. ENT: Pharynx normal. Neck: Normal inspection. Neck supple. CVS: Normal heart rate and rhythm. Pulses normal. Respiratory: No respiratory distress. Breath sounds normal. Abdomen: Soft and nontender. Skin: Skin warm and dry. Normal skin color. Normal skin turgor. Extremities: No lower extremity edema. L wrist is well healed no redness, warmth, yellow drainage - I do not see dehiscence there is a partial scab on the more distal incision with maybe slight widening at the top most of the epidermis but inside all approximated and it is so extremely small it might even be a scab Neuro: Oriented X 3. No motor deficit. No sensory deficit. Medical Decision Making Medical Decision Making MDM Narrative: 43 yo female with PMH of pyelonephritis, IDDM, HTN who is here with c/o concern for dehiscence of surgical wound but no concerns for infection at this time on my exam I have no concerns for dehiscence it is well approximated and healing. New dressing in place given precautions to return - all signs point to she is healing well. Differential Diagnosis Differential Diagnoses: The differential diagnosis associated with the presentation includes wound dehiscence, normal healing wound Independent Historian Clinical information obtained from an independent historian. History obtained from or confirmed by: Spouse External Record Review External record reviewed: Outpatient record Discharge Plan Discharge Clinical Impression: Healed wound Patient Disposition: Home, Self-Care Instructions: Acute Wounds (ED) Additional Instructions: return for any fevers, yellow drainage, swelling, warmth or any other concerns follow up with your surgeon danilo aguirre Prescriptions: No Action aspirin 81 mg Tablet,Delayed Release (Dr/Ec) 81 mg PO DAILY lisinopril 2.5 mg Tablet 2.5 mg PO DAILY metformin 500 mg Tablet Extended Release 24 Hr 1,000 mg PO DAILY ibuprofen 600 mg tablet 600 mg PO TID PRN (Reason: fever or pain) Qty: 20 0RF insulin lispro [Humalog U-100 Insulin] 100 unit/mL solution See Rx Instructions .ROUTE .COMPLEX Rx Instructions: 0 - 150 ;up to 150 units via insulin pump daily albuterol sulfate 90 mcg/actuation HFA aerosol inhaler 2 puff INHALATION Q6H PRN (Reason: Shortness Of Breath Or Wheezing) fluticasone propionate [Flonase Allergy Relief] 50 mcg/actuation [place],Suspension 1 spray INTRANASAL DAILY PRN (Reason: Allergy Symptoms) Rx Instructions: administer into each nostril levocetirizine 5 mg Tablet 5 mg PO DAILY PRN (Reason: Allergy Symptoms) Arnuity Ellipta 100 mcg/actuation blister with device 1 puff inhalation DAILY insulin glargine-yfgn [Semglee(insulin glarg-yfgn)Pen] 100 unit/mL (3 mL) insulin pen 40 - 70 unit subcut DAILY Mounjaro 5 mg/0.5 mL pen injector 5 mg subcut MARTELL@0900 cyclobenzaprine 10 mg tablet 10 mg PO TID PRN (Reason: muscle pain or spasm) Qty: 20 0RF prednisone 20 mg tablet 60 mg PO DAILY 7 Days Qty: 21 0RF morphine 15 mg tablet 15 mg PO Q4-6H PRN (Reason: pain) Qty: 14 0RF Rx Instructions: Patient may request partial fill; Partial Fill upon patient request. fosfomycin tromethamine 3 gram packet 1 packet PO Q OTHER DAY Qty: 1 0RF methenamine hippurate 1 gram tablet 1 g PO BID 30 Days Qty: 60 11RF Print Language: Indonesian
[2024-06-03 06:55] VITALS: BP 107/64; PULSE 91; RESP 16; TEMP 36.7; O2SAT 97
== END 2024-06-03 06:56 | disposition home or self-care (01) ==
PROVIDERS: Emergency Provider Emergency Medicine; PCP Nurse Practitioner Family
DX: Z48.01 Encounter for change or removal of surgical wound dressing (principal)
CPT/HCPCS: 99282; 99284